=== PATIENT | male | born 1955 | race Caucasian/White ===

== ENCOUNTER 2018-07-29 16:55 | Inpatient (IN) ==
[2018-07-29] MEDS ORDERED: MBX SOLUTION MT ONE (17:41)
[2018-07-29] MEDS ORDERED: NS 500 ML IV ONE (17:42)
--- NOTE | 2018-07-29 17:43 | PROVIDER DOCUMENTATION ---
This chart was entered by Selam Reyes Scribe, acting as scribe for Brayan Thurston MD. HPI-General Adult - General Chief Complaint: General Adult Stated Complaint: MOUTH PAIN Time Seen by Provider: 07/29/18 17:15 Source: patient Allergies/Adverse Reactions: Patient Allergies Allergy/AdvReac Type Severity Reaction Status Date / Time No Known Allergies Allergy Verified 07/29/18 17:25 Home Medications: Home Medication List Medication Instructions Recorded Confirmed Last Taken Type Omeprazole [Prilosec] 40 mg PO DAILY 02/19/16 05/20/18 05/19/18 History Ondansetron HCl [Zofran] 4 mg PO PRN PRN 09/01/16 05/20/18 05/18/18 History Bortezomib [Velcade] 3.5 mg IV Q7D 01/01/17 05/20/18 05/15/18 History Valacyclovir HCl [Valtrex] 500 mg PO DAILY 01/01/17 05/20/18 05/19/18 History Dexamethasone 4 mg PO DIRECTED 05/15/18 05/20/18 05/16/18 History Lenalidomide [Revlimid] 25 cap PO DAILY 05/15/18 05/20/18 04/29/18 History Warfarin [Coumadin] 2 mg PO DAILY 05/15/18 05/20/18 04/29/18 History - History of Present Illness -Gen Adult Nature of Presenting Problems: Patient is a 63 year old male who presents to the ED via EMS with mouth pain. Patient denies injury. States history of multiple myeloma. Reports he was suppose to have all of his teeth pulled but could not make it to the dentist. Location of Pain/Injury: reports: mouth Pain Radiation: reports: no radiation Quality of Pain: reports: aching Severity: reports: mild Onset/Duration: reports: unsure Timing: reports: still present Context/Activities at Onset: reports: light activity Modifying Factors: improves with: nothing Associated Symptoms: reports: denies symptoms Similar Symptoms Previously?: Yes Recently seen or treated by another doctor?: No Review of Systems - Adult - REVIEW OF SYSTEMS - ADULT Constitutional: reports: no symptoms reported. denies: chills, fever, fatique Eyes: reports: no symptoms reported Ears, Nose, Mouth & Throat: reports: see HPI, mouth/dental pain (mouth pain). denies: ear pain, nose pain, throat pain Cardiovascular: reports: no symptoms reported Respiratory: reports: no symptoms reported Gastrointestinal: reports: no symptoms reported Genitourinary: reports: no symptoms reported Musculoskeletal: reports: no symptoms reported. denies: back pain, muscle aches, neck pain Integumentary: reports: no symptoms reported Neurological: reports: no symptoms reported Psychiatric: reports: no symptoms reported Endocrine: reports: no symptoms reported Hematologic/Lymphatic: reports: no symptoms reported Allergic/Immunologic: reports: no symptoms reported All Other Systems: Reviewed and Negative Past History - Adult - PAST MEDICAL HISTORY-ADULT Review of Records: reports: Nursing Assessment Review, Medications Reviewed, Social history reviewed & non-contributory. Major Childhood Illnesses: reports: denies history Cardiovascular: reports: denies history Respiratory: reports: denies history Gastrointestinal: reports: denies history Obstetrical/Gynecological: reports: denies history Genitourinary: reports: denies history Musculoskeletal: reports: denies history Neurological: reports: denies history Psychiatric: reports: denies history Endocrine/Immune: reports: denies history Other Conditions: reports: other (HIATAL HERNIA) - PRIOR SURGERIES/PROCEDURES Surgical/Procedure History: reports: reviewed, not pertinent - IMMUNIZATION STATUS Childhood Immunizations: See Nurse Assessment Flu Vaccine: See Nurse Assessment - FAMILY HISTORY Family History: reviewed, not pertinent - SOCIAL HISTORY Smoking: cigarettes, less than 1 pack/day Provider spent 3-5 mins advising pt. on dangers of tobacco.: Discussed manners to quit use, and f/u contacts for add'l counseling. Substance Use: denies Physical Exam-General - PHYSICAL EXAM-ADULT Initial Vital Signs Reviewed: Yes - CONSTITUTIONAL General Appearance: alert, no apparent distress. negative: obese, anxious - HEAD, EARS, NOSE, MOUTH & THROAT HENMT: dental decay, other (dry mucous membranes. brown discharge present to dentition. small mass to left jaw.). negative: hearing deficit - RESPIRATORY Respiratory: chest non-tender, lungs clear, normal breath sounds. negative: crackles, rhonchi - CARDIOVASCULAR Cardiovascular: normal peripheral pulses, regular rate, rhythm. negative: tachycardia, systolic murmur - MUSCULOSKELETAL Extremity: non-tender, normal inspection. negative: deformity, erythema - SKIN Integumentary: normal color, normal turgor, warm/dry. negative: cyanosis, ecchymosis, erythema, jaundice - NEUROLOGIC Neurologic: grossly normal. negative: aphasia, facial droop - PSYCHIATRIC Psych/Mental Status: normal mood/affect. negative: anxious, paranoid Progress - PLAN OF CARE/RESULTS Progress/Plan/Lab Results: Vital Signs - 8 hr 07/29/18 17:21 Temperature 97.7 F Pulse Rate 122 H Respiratory Rate 24 Blood Pressure 100/81 Orders Category Date Time Status Cardiac Monitoring DIRECTED Care 07/29/18 17:27 Active IV Insertion ORDERED Care 07/29/18 17:27 Active CHEST-1 VIEW [RAD] Stat Exams 07/29/18 17:27 Ordered BLOOD CULTURE [BLDCUL] Stat Lab 07/29/18 17:27 Uncollected CBC WITH DIFF [HEME] Stat Lab 07/29/18 17:27 Uncollected CK PROFILE [SP CHEM] Stat Lab 07/29/18 17:27 Uncollected COMPREHENSIVE METABOLIC PANEL [CHEM] Stat Lab 07/29/18 17:27 Uncollected LACTATE, PLASMA [CHEM] Q3H Lab 07/29/18 17:30 Uncollected LACTATE, PLASMA [CHEM] Q3H Lab 07/29/18 20:30 Uncollected LACTATE, PLASMA [CHEM] Q3H Lab 07/29/18 23:30 Uncollected PROTIME WITH INR [COAG] Stat Lab 07/29/18 17:27 Uncollected PTT [COAG] Stat Lab 07/29/18 17:27 Uncollected TROPONIN T Stat Lab 07/29/18 17:27 Uncollected URINALYSIS W/POSS RFLX CULT [URINALYSIS] Stat Lab 07/29/18 17:27 Uncollected Oxygen Device Stat Oth 07/29/18 17:27 Active - CONSULTS/PCP/HOSPITALIST Notification #1 *Consult/PCP/Hospitalist*: Dr. Bauer Time Discussed: 17:41 Reason/Comments: Dr. Thurston consulted with Dr. Bauer about patient. Consult Disposition: Will see in ED #2 Consult: Dr. Bauer Time Discussed: 17:53 Reason/Comments: Dr. Thurston consulted with Dr. Bauer about patient. Consult Disposition: Admit Departure - Departure Date of Disposition Decision: 07/29/18 Time of Disposition Decision: 17:53 Disposition: ADMITTED INPATIENT 09 Certified Medical Emergency: Emergent Condition: Stable Referrals and Follow-Ups: Zee Cramer MD [Primary Care Provider] - - Critical Care Note This patient required my direct & personal management of CC.: No Attestation - Physician/ GLENNY Attestation The physician spent face to face time with patient:: Yes Advanced Practice Provider documentation review:: Supervising physician onsite and consulted in the evaluation and care of this patient. The physician did have a face to face encounter with the patient. This chart was documented by the indicated scribe, (Selam Reyes Scribe) and accurately reflects the services I performed and decisions made by me, Brayan Thurston MD, as attested by the provider's signature.
[2018-07-29 18:06] LABS: BASO# 0.05 X1000 (0.0-0.2); BASO% 0.5 % (0.0-0.8); HEMATOCRIT 40.5 % (42.0-52.0); HEMOGLOBIN 12.7 g/dL (14.0-18.0); IMM GRAN# 0.33 X1000 (0.0-0.04); IMM GRAN% 3.1 % (0.0-0.5); LYMPH# 1.19 X1000 (1.2-3.4); LYMPH% 11.3 % (20.5-51.1); MCH 33.1 PG (27-31); MCHC 31.4 g/dL (33-37); MCV 105.5 FL (81-99); MONO# 0.97 X1000 (0.11-0.59); MONO% 9.2 % (1.7-9.3); MPV 12.1 FL (7.4-10.4); NEUT# 7.98 X1000 (1.4-6.5); NEUT% 75.9 % (42.2-75.2); PLT 241 X1000 (130-400); RBC 3.84 XMIL (4.7-6.1); RDW 13.9 % (11.5-14.5); WBC 10.52 X1000 (4.8-10.8)
[2018-07-29 18:12] LABS: INR 0.91; PTT 24.2 Seconds (22.3-41.8)
--- NOTE | 2018-07-29 18:15 | Diag Imaging Result Doc PS360 ---
EXAM: CHEST-1 VIEW HISTORY: sepsis protocol TECHNIQUE: Chest single view COMPARISON: 02/19/2016 FINDINGS: The lungs are well expanded. The heart is not enlarged. The vessels are not distended. Small infiltrate in the right costophrenic angle. No effusion identified. IMPRESSION: Small right basilar infiltrate Electronically signed by Chiki Peters 07/29/2018 6:13 PM
[2018-07-29 18:26] LABS: ESTIMATED GFR > 60
[2018-07-29] MEDS ORDERED: NS 1,000 ML IV SCH (18:30)
[2018-07-29 18:35] LABS: AGAP 25; ALB/GLOB RATIO 1.1; ALBUMIN 3.3 g/dL (3.5-5.0); ALKALINE PHOSPHATASE 99 U/L (32-122); BUN 17 mg/dL (8-22); CALCIUM 9.6 mg/dL (8.8-10.2); CHLORIDE 84 mmol/L (98-107); CK PROFILE 22 U/L (24-204); COSMO 290; CREATININE 0.7 mg/dL (0.7-1.2); GLUCOSE 103 mg/dL (70-104); GOT 12 U/L (10-34); GPT 9 U/L (10-44); SODIUM 145 mmol/L (136-145); TCO2 36 mmol/L (25-35); TOTAL BILIRUBIN 0.77 mg/dL (0.20-1.00); TOTAL PROTEIN 6.3 g/dL (6.3-8.3)
[2018-07-29] MEDS ORDERED: TYLENOL PO ONE (18:35)
[2018-07-29] MEDS ORDERED: LOVENOX SUBQ SCH (18:45)
[2018-07-29 18:50] LABS: URINE SOURCE CLEAN CATCH
[2018-07-29 18:53] LABS: BILIRUBIN URINE MODERATE (NEGATIVE); BLOOD URINE NEGATIVE (NEGATIVE); COLOR YELLOW; GLUCOSE URINE NEGATIVE (NEGATIVE); KETONE URINE 40 mg/dL (NEGATIVE); LEUKOCYTES URINE NEGATIVE (NEGATIVE); NITRITE URINE NEGATIVE (NEGATIVE); PROTEIN URINE 30 mg/dL (NEGATIVE); SP GRAVITY URINE 1.024; TURBIDITY URINE HAZY (CLEAR); UROBILINOGEN URINE 6 mg/dL (NORMAL)
[2018-07-29 18:54] LABS: UR EPITHELIAL CELLS <10 /HPF (<10); URINE BACTERIA NEGATIVE /HPF; URINE RBC <10 /HPF (<10); URINE WBC <10 /HPF (<10)
--- NOTE | 2018-07-29 18:57 | HISTORY AND PHYSICAL ---
CHIEF COMPLAINT: Mouth pain. HISTORY OF PRESENT ILLNESS: The patient is a 63-year-old, white male who lives by himself and has not been doing well recently. He has had mouth pain from multiple myeloma and from poor dentition. His mouth has been hurting. He has seen an oral surgeon in [place], has had loss of some teeth and was supposed to have other teeth removed. Not sure all of the diagnoses. It is hard for him to talk with his mouth hurting. I do not believe he can eat or drink much at this time. He looks somewhat dehydrated and disheveled. Family members were in the room with me. They tell me that he had been treated by Dr. Stone for the multiple myeloma and it is their understanding that sometimes he overuses his steroids. PAST MEDICAL HISTORY: Past history includes diagnosis of multiple myeloma. MEDICATIONS: Include 1. Prilosec 40 mg daily. 2. Zofran 4 mg p.o. p.r.n. nausea. 3. Velcade 3.5 mg IV every 7 days. 4. Valtrex 500 mg p.o. daily. 5. Dexamethasone 4 mg p.o. as directed. 6. Revlimid 25 mg capsules p.o. daily. 7. Warfarin 2 mg p.o. daily. FAMILY HISTORY: He does have brothers in good health. He is no longer . He does have children. SOCIAL HISTORY: Does still smoke tobacco. Does not use alcohol. REVIEW OF SYSTEMS: Neurological: He apparently has been a little confused. He could not tell me who the President was. Family members noticed a little confusion with him this admission. He did talk with me a little bit saying that his mouth hurts. Pulmonary: Denies cough, wheezing, dyspnea. Cardiovascular: Denies chest pain, heart palpitations, PND, orthopnea. Abdomen: Denies hematochezia, hematemesis, melena, constipation, diarrhea. Has lost weight over the last few months. It started hurting more in his mouth in the last couple of weeks. Genitourinary: Has had no difficulty with urination. Musculoskeletal: Has had some muscle wasting, just generalized weight loss. Psychiatric: He has had a little depression, has thought about giving up on his treatments so that he can . PHYSICAL EXAMINATION: VITAL SIGNS: Temperature 97.7 degrees Fahrenheit, pulse 122, respirations 24, blood pressure 100/81. HEENT: He is normocephalic. TMs within normal limits. Throat is hard to see. He has very strong breath. Could not rule out an abscess. He has some swelling of the left jaw area. He is missing some teeth. NECK: Supple. LUNGS: Clear to auscultation and percussion without rhonchi, rales, or wheezes. HEART: Regular rate and rhythm to sinus tachycardia without murmurs, gallops, friction rubs. ABDOMEN: Soft. Active bowel sounds. No organomegaly or tenderness. NEUROLOGICAL: Cranial nerves 2-12 intact grossly. Sensory and motor intact. Reflexes 1+ all. Has good dorsal pedal pulses. LABORATORY DATA: Lab work is still pending. ASSESSMENT: 1. Mouth pain with swollen left jaw area, possible parotiditis, possible abscess. 2. Altered mental status. 3. History of multiple myeloma. PLAN: Will admit. We will get blood cultures. We will start on IV antibiotics. We will get x- rays of the jaw. May consider CT scan of the jaw. We will consult Dr. Stone, his life science technical officer/oncologist. May have to get an oral surgeon to take a look at him here in town as well. He has no known drug allergies. Please see orders. cc: Minesh Bauer Jr, MD
--- NOTE | 2018-07-29 19:44 | Diag Imaging Result Doc PS360 ---
EXAM: CT HEAD W/O CONTRAST HISTORY: AMS and swollen left jaw TECHNIQUE: CT head without contrast COMPARISON: None. FINDINGS: No parenchymal hemorrhage. No epidural or subdural hematoma. No subarachnoid hemorrhage. No mass identified on this noncontrasted exam. No hydrocephalus. No left maxillary sinus opacification. IMPRESSION: No hemorrhage. Maxillary sinusitis This exam was performed using automated exposure control, adjustment of mA or kV according to patient size, and/or use of iterative reconstruction technique. Electronically signed by Chiki Peters 07/29/2018 7:42 PM
[2018-07-29] MEDS: NS 1,000 ML IV SCH (22:59)
[2018-07-29] MEDS: ROCEPHIN 1 GM in NS 50 ML IV SCH (22:59)
[2018-07-30 04:22] LABS: URINE SOURCE CATH
[2018-07-30 04:32] LABS: BILIRUBIN URINE MODERATE (NEGATIVE); BLOOD URINE NEGATIVE (NEGATIVE); COLOR YELLOW; GLUCOSE URINE NEGATIVE (NEGATIVE); KETONE URINE 20 mg/dL (NEGATIVE); LEUKOCYTES URINE NEGATIVE (NEGATIVE); NITRITE URINE NEGATIVE (NEGATIVE); PROTEIN URINE 30 mg/dL (NEGATIVE); SP GRAVITY URINE 1.024; TURBIDITY URINE CLEAR (CLEAR); UROBILINOGEN URINE 4 mg/dL (NORMAL)
[2018-07-30 04:35] LABS: UR EPITHELIAL CELLS <10 /HPF (<10); URINE BACTERIA NEGATIVE /HPF; URINE RBC <10 /HPF (<10); URINE WBC <10 /HPF (<10)
[2018-07-30 04:36] LABS: URINE CASTS NONE SEEN; URINE CRYSTALS CA OXALATE PRESENT; URINE SMALL ROUND CELLS NONE SEEN; URINE YEAST NONE SEEN
[2018-07-30] MEDS ORDERED: PRILOSEC PO SCH (07:00)
[2018-07-30 08:05] LABS: BASO# 0.02 X1000 (0.0-0.2); BASO% 0.3 % (0.0-0.8); EOS# 0.02 X1000 (0.0-0.7); EOS% 0.3 % (0.0-10.0); HEMATOCRIT 32.8 % (42.0-52.0); HEMOGLOBIN 10.2 g/dL (14.0-18.0); IMM GRAN# 0.25 X1000 (0.0-0.04); IMM GRAN% 3.5 % (0.0-0.5); LYMPH% 12.6 % (20.5-51.1); MCH 32.8 PG (27-31); MCHC 31.1 g/dL (33-37); MCV 105.5 FL (81-99); MONO# 0.72 X1000 (0.11-0.59); MONO% 10.1 % (1.7-9.3); MPV 12.3 FL (7.4-10.4); NEUT# 5.25 X1000 (1.4-6.5); NEUT% 73.2 % (42.2-75.2); PLT 189 X1000 (130-400); RBC 3.11 XMIL (4.7-6.1); RDW 13.8 % (11.5-14.5); WBC 7.16 X1000 (4.8-10.8)
[2018-07-30 08:12] LABS: AGAP 13; BUN 15 mg/dL (8-22); CALCIUM 8.4 mg/dL (8.8-10.2); CHLORIDE 91 mmol/L (98-107); COSMO 281; CREATININE 0.6 mg/dL (0.7-1.2); ESTIMATED GFR > 60; GLUCOSE 107 mg/dL (70-104); SODIUM 140 mmol/L (136-145); TCO2 36 mmol/L (25-35)
[2018-07-30 08:32] LABS: POTASSIUM 2.4 mmol/L (3.5-5.1)
[2018-07-30] MEDS: ROCEPHIN 1 GM in NS 50 ML IV SCH ×2 (09:45→20:36)
[2018-07-30] MEDS: POTASSIUM CHLORIDE 60 MEQ in NS 500 ML IV SCH ×2 (09:56→16:35)
[2018-07-30] MEDS: NS 1,000 ML IV SCH ×4 (10:28→23:17)
--- NOTE | 2018-07-30 12:27 | HEMO/ONC CONSULTATION ---
DATE: 07/30/2018 HISTORY OF PRESENT ILLNESS: The patient came to the emergency department complaining of increased amounts of mouth pain. The patient has been having mouth pain for quite a few months at this time. Patient has needed to have his teeth pulled for a while. The patient says he is unable to eat or drink due to having too much mouth pain at this time. Upon admission, the patient was noted to be dehydrated. He was admitted at that time for further evaluation and management. Mr. Agrawal is well known to us in our clinic where he follows up for his nonsecretory multiple myeloma. He began Velcade, Revlimid, and Decadron on 05/13/2016. Initial bone marrow biopsy 90% plasma cells. 2nd Bone marrow biopsy revealed 30% plasma cells. Later Bone marrow biopsy showed less than 5% plasma cells without features of myeloma. Revlimid and Decadron were stopped on 01/07/2017. He continued on single agent Velcade and declined stem cell transplantation. He relapsed on the single agent Velcade. Bone marrow biopsy 06/2017 reveal 35% plasma cells. He was restarted on full- dose Velcade, Revlimid, and Decadron on 07/25/2017. Bone marrow biopsy in April 2018 revealed 20% plasma cells. He has been complaining of this increased amount of jaw pain for many months at this time now. The patient has been very noncompliant with following a dentist or oral surgeons. Patient did see Dr. Benítez and unable to have anything done here locally and was referred to [facility] and patient was noncompliant with keeping his appointments. PAST MEDICAL HISTORY: Multiple myeloma, poor dentition. SOCIAL HISTORY: He smokes tobacco daily. Denies any alcohol or illicit drug use. FAMILY HISTORY: Noncontributory. HOME MEDICATIONS: Prilosec, Zofran, Velcade, Valtrex, dexamethasone, Revlimid, and warfarin. ALLERGIES: No known drug allergies. REVIEW OF SYSTEMS: Negative unless mentioned in the HPI. PHYSICAL EXAMINATION: Vital Signs: Temperature of 97.7 degrees, heart rate 105, respiratory rate 18, blood pressure 93/66, saturating 100% on nasal cannula. General: The patient is awake, lying in bed. No acute distress noted. HEENT: Anicteric. Pupils PERRLA. Mucous membranes appear to be dry. Neck: Supple. Trachea midline. Lymph Nodes: No palpable lymphadenopathy. Lungs: Bilateral breath sounds clear to auscultation. Cardiovascular: S1, S2. Regular rate and rhythm. Abdomen: Soft, nontender. Bowel sounds present in all 4 quadrants. Skin: Warm, dry, and intact. Neurologic: Alert and oriented x3. No focal deficits noted. LABORATORY DATA: White blood cell count 7.16, hemoglobin 10.2, platelets are 189,000. BUN 15, creatinine 0.6, calcium 8.4. ASSESSMENT AND PLAN: 1. Multiple myeloma: Revlemid, decadron, and velcade on hold until the patient improves. Once patient improves we will consider restarting treatment at that time. 2. Mouth pain: Continue recommendations per primary medical team. 3. Altered mental status: Continue recommendations per primary medical team. Dictated by ZACK Dalton for Zak Stone MD Patient seen and examined. Nonsecretory multiple myeloma as described above. Admitted with altered mental status and dehydration. Slowly starting to feel better. He is unable to open his mouth and has had difficulty with his teeth and follows up in [place], although has been noncompliant with his follow- ups. Discussed with Dr. Shoaib Stone M.D. cc: ZACK Dalton [facility] CENTERKevyn
--- NOTE | 2018-07-30 21:45 | PROGRESS NOTE ---
DATE: 07/30/2018 SUBJECTIVE: A 63-year-old, white male, noncompliant. Was seen this morning along with his brother. Interval history was reviewed. The patient was not seen in my office since 2016. Apparently, he has been diagnosed with nonsecretory myeloma under the care of Dr. Stone. I discussed with Dr. Stone on the telephone. His myeloma is in remission. However, he is noncompliant. He has a chronic deep problems and apparently was seen by Dr. Benítez and subsequently seen at [facility]. He has a lot of gingivitis inflammation. Poor dental health. He can swallow. He is slightly tender, inflamed on the left side of the jaw. PAST MEDICAL HISTORY: Reviewed. PAST SURGICAL HISTORY: Reviewed. MEDICINES: Were reviewed. ALLERGIES: Not known. REVIEW OF SYSTEMS: Unable to eat with a lot of pain in the teeth. PHYSICAL EXAMINATION: Vital Signs: Temperature is 98.4, pulse 97, blood pressure is 115/73 and he is very unkempt. Poor dental hygiene. A lot of tenderness on the left side of the jaw. Neck: Supple. Chest: Bilateral air entry. Heart: Sounds are regular. Abdomen: Belly is soft, scaphoid. Genitourinary: Robert was placed. Extremities: No peripheral edema noted. No obvious deficits. INVESTIGATIONS: CBC: White cell count 7.1, hematocrit 32, MCV 105, platelets 185. SMA-7: Sodium 140, potassium 2.4, chloride 81, BUN 15, creatinine 0.6, and calcium 8.4. Liver function tests were normal and urinalysis negative. Blood cultures are pending. CT head reported left maxillary sinusitis. Chest x-ray: Small right basilar infiltrate. ASSESSMENT AND PLAN: 1. Nonsecretory multiple myeloma under the care of Dr. Stone. 2. Gingivitis on the left side of the jaw. We will get a CT scan of the jaw bone tomorrow and in the meantime the patient was started on IV ceftriaxone. 3. Gastrointestinal prophylaxis with Protonix and Prilosec. 4. Dehydration. IV fluids. 5. Hypokalemia. Replace the potassium. 6. Consult with Dr. Stone and will reconcile his home medications once he is medically stable. Discussed the plan of care with the patient's brother and will follow up. LEVEL OF DOCUMENTATION: 35 minutes. cc: Lucio Cramer MD
[2018-07-30] MEDS: PROTONIX IV SCH (23:17)
[2018-07-31 07:48] LABS: BASO# 0.03 X1000 (0.0-0.2); BASO% 0.5 % (0.0-0.8); HEMATOCRIT 28.7 % (42.0-52.0); HEMOGLOBIN 8.7 g/dL (14.0-18.0); IMM GRAN# 0.27 X1000 (0.0-0.04); IMM GRAN% 4.4 % (0.0-0.5); LYMPH# 0.55 X1000 (1.2-3.4); LYMPH% 9.1 % (20.5-51.1); MCH 32.7 PG (27-31); MCHC 30.3 g/dL (33-37); MCV 107.9 FL (81-99); MONO# 0.55 X1000 (0.11-0.59); MONO% 9.1 % (1.7-9.3); MPV 11.4 FL (7.4-10.4); NEUT# 4.67 X1000 (1.4-6.5); NEUT% 76.9 % (42.2-75.2); PLT 150 X1000 (130-400); RBC 2.66 XMIL (4.7-6.1); RDW 13.9 % (11.5-14.5); WBC 6.07 X1000 (4.8-10.8)
[2018-07-31 07:57] LABS: AGAP 10; BUN 6 mg/dL (8-22); CALCIUM 7.8 mg/dL (8.8-10.2); CHLORIDE 104 mmol/L (98-107); COSMO 286; CREATININE 0.4 mg/dL (0.7-1.2); ESTIMATED GFR > 60; GLUCOSE 130 mg/dL (70-104); MAGNESIUM 1.4 mg/dL (1.5-2.7); PHOSPHORUS 1.3 mg/dL (2.7-4.5); SODIUM 144 mmol/L (136-145); TCO2 30 mmol/L (25-35)
[2018-07-31] MEDS ORDERED: MAGNESIUM SULFATE 2 GM/S.W.I. 2 GM/50 ML IVPB IV ONE (08:04)
--- NOTE | 2018-07-31 08:04 | HEMO/ONC PROGRESS NOTE ---
DATE: 07/31/2018 SUBJECTIVE: Patient continues to have increased amounts of pain to his mouth. No other complaints at this time. OBJECTIVE: Vital Signs: Temperature 98.5 degrees, heart rate 93, respiratory rate 17, blood pressure 106/67, saturation 90% on room air. General: Patient is awake, lying in bed, no acute distress noted. HEENT: Anicteric. PERRLA. Mucous membranes dry. Tenderness to the left side of jaw. Chest: Bilateral breath sounds clear to auscultation. Cardiovascular: S1, S2. Abdomen: Abdomen soft, nontender. Bowel sounds present all 4 quadrants. Neurologic: Alert and oriented x3. No focal deficits noted. RADIOLOGY: CT of Maxillofacial showed comminuted fracture involving the mandible of the left side with abnormal eroded appearance. Suspicious for pathological fracture related to multiple myeloma. ASSESSMENT AND PLAN: 1. Nonsecretory multiple myeloma: Once he is improved, we will restart treatment at that time. Continue to monitor. 2. Increased amount of pain to left-sided jaw: Continue as per primary medical team. Continue antibiotics as ordered. 3. Dehydration: Continue IV fluids as ordered by primary medical team. Dictated by ZACK Dalton for Zak Stone MD Patient seen and examined. He feels much better with fluids and electrolyte management at this time. CT scan results were discussed. Oral surgery to look at him. Discussed with Dr. Cramer. Zak Stone M.D. [facility]
[2018-07-31 08:16] LABS: BANDS 26 % (0-1); HYPOCHROM 1+; LYMPHS 2 % (21-51); MONO 4 % (1-9); SEGS 64 % (42-75)
[2018-07-31 08:26] LABS: SED RATE 90 mm/hr (0-15)
[2018-07-31] MEDS: CLINIMIX E 4.25%-5% SOLUTION 1,000 ML IV SCH ×2 (08:58→17:25)
[2018-07-31] MEDS ORDERED: POTASSIUM PHOSPHATE 30 MEQ in NS 250 ML IV ONE (09:00)
[2018-07-31 09:05] LABS: FREE T4 1.13 ng/dL (0.93-1.70); TSH 0.72 uIUmL (0.27-4.20); VITAMIN D 25 HYDROXY 20.4 NG/DL
[2018-07-31] MEDS: ZOSYN 3.375 GM in NS 50 ML IV SCH ×3 (10:03→22:55)
--- NOTE | 2018-07-31 10:13 | Diag Imaging Result Doc PS360 ---
EXAM: CT MAXILLOFACIAL(SINUS) W/CON INDICATION: Extreme jaw pain TECHNIQUE: COMPARISON: None. FINDINGS: There are complex fractures involving the mandible on the left extending from near the mandibular angle through the mandibular ramus. There is irregularity and callous formation suggesting that at least part of this fracture is subacute. There are erosive changes involving this segment of the bone and there is a history of multiple myeloma. This may represent a pathologic fracture. There is fluid and a few tiny gas droplets adjacent to the fractured mandibular ramus. There are two other ill-defined fluid collections more inferiorly. One is adjacent to the mandibular angle extending into the submandibular region. The other is superficial just under the skin surface and more inferior measuring 1.8 x 1.1 cm axially. These fluid collections may communicate. Although evolving hematomas are possible, soft tissue abscesses cannot be excluded especially given the gas droplets adjacent to the mandibular ramus. If so, mandibular osteomyelitis along the fractures should be considered. No other fracture or dislocation is identified. There are numerous tiny lucencies involving the visualized portion of the cervical spine that are probably myelomatous lesions. IMPRESSION: 1.Complex comminuted fracture involving the left side of the mandible as described with the fractured portion of the bone exhibiting an abnormal eroded appearance. This is suspicious for pathologic fracture related to multiple myeloma lesions and/or mandibular osteomyelitis. 2.Small ill-defined fluid collections adjacent to the fractured mandible, one with a few internal gas droplets. Soft tissue abscesses cannot be excluded. Please correlate clinically. 3.Numerous small hyper lucencies involving the visualized portion of the cervical spine consistent with known multiple myeloma. Electronically signed by Sen Castanon 07/31/2018 10:11 AM
[2018-07-31] MEDS ORDERED: SODIUM CHLORIDE 0.9% INJ SCH (11:30)
[2018-07-31] MEDS ORDERED: PROTONIX IV SCH (11:30)
[2018-07-31] MEDS: POTASSIUM CHLORIDE 60 MEQ in NS 500 ML IV SCH ×2 (13:38→23:30)
--- NOTE | 2018-07-31 21:03 | PROGRESS NOTE ---
DATE: 07/31/2018 SUBJECTIVE: The patient is still with a lot of pain in the jaw and bad teeth. Discussed with Dr. Stone. No family is at bedside. OBJECTIVE: On exam, temperature is 98 degrees. His pulse is tachycardic. Blood pressure is 110/66. HEENT exam: He has bad teeth. A lot of pain on the left side of the jaw. Chest is clear. Heart sounds are regular. Belly is soft, nontender. Robert was placed. LABORATORY DATA: CBC: White cell count 6.0, hematocrit 28, platelets 150,000. Sedimentation rate was 90. SMA 7: Sodium 144, potassium 3. His calcium is low. Magnesium is low. Phosphate is low. Vitamin D is also on the low side. B12 and thyroid function tests were normal. ASSESSMENT AND PLAN: 1. Nonsecretory myeloma. Chemotherapy is on hold. 2. Left jaw pain. CT of the jaw reported complex mandibular fracture with infection, possible osteomyelitis. Consult Dr. Benítez. 3. Hypokalemia. Replace the potassium. 4. Hypomagnesemia. Replace the magnesium. 5. Hypophosphatemia. Replace the phosphate. 6. Change the intravenous fluids to Clinimix. Since Rocephin is not compatible with the Clinimix, changing to Zosyn. 7. I tried to reach Dr. Benítez, left a message, and will follow up. Level of documentation 25 minutes. cc: Lucio Cramer MD
[2018-07-31] MEDS: PROTONIX IV SCH (22:55)
[2018-08-01] MEDS: TYLENOL PO PRN (00:14)
[2018-08-01] MEDS: CLINIMIX E 4.25%-5% SOLUTION 1,000 ML IV SCH ×3 (04:16→21:00)
[2018-08-01] MEDS: ZOSYN 3.375 GM in NS 50 ML IV SCH ×4 (04:16→21:04)
[2018-08-01 07:47] LABS: BASO# 0.05 X1000 (0.0-0.2); BASO% 0.8 % (0.0-0.8); EOS# 0.01 X1000 (0.0-0.7); EOS% 0.2 % (0.0-10.0); HEMATOCRIT 29.4 % (42.0-52.0); HEMOGLOBIN 8.9 g/dL (14.0-18.0); IMM GRAN# 0.44 X1000 (0.0-0.04); IMM GRAN% 7.3 % (0.0-0.5); LYMPH# 0.64 X1000 (1.2-3.4); LYMPH% 10.6 % (20.5-51.1); MCH 32.6 PG (27-31); MCHC 30.3 g/dL (33-37); MCV 107.7 FL (81-99); MONO# 0.76 X1000 (0.11-0.59); MONO% 12.6 % (1.7-9.3); MPV 11.7 FL (7.4-10.4); NEUT# 4.12 X1000 (1.4-6.5); NEUT% 68.5 % (42.2-75.2); PLT 135 X1000 (130-400); RBC 2.73 XMIL (4.7-6.1); RDW 13.8 % (11.5-14.5); WBC 6.02 X1000 (4.8-10.8)
[2018-08-01] MEDS ORDERED: POTASSIUM PHOSPHATE 30 MEQ in NS 250 ML IV ONE (07:50)
[2018-08-01] MEDS ORDERED: MAGNESIUM SULFATE 2 GM/S.W.I. 2 GM/50 ML IVPB IV ONE (07:50)
[2018-08-01] MEDS ORDERED: CALCIUM GLUCONATE 1 GM in NS 50 ML IV ONE (07:50)
[2018-08-01 08:06] LABS: AGAP 7; BUN 12 mg/dL (8-22); CALCIUM 7.9 mg/dL (8.8-10.2); CHLORIDE 105 mmol/L (98-107); COSMO 287; CREATININE 0.5 mg/dL (0.7-1.2); ESTIMATED GFR > 60; GLUCOSE 179 mg/dL (70-104); POTASSIUM 4.1 mmol/L (3.5-5.1); SODIUM 142 mmol/L (136-145); TCO2 30 mmol/L (25-35)
[2018-08-01 08:48] LABS: ANISOCYTOSIS 1+; BANDS 2 % (0-1); EOS 1 % (1-10); LYMPHS 10 % (21-51); MONO 13 % (1-9); SEGS 68 % (42-75)
[2018-08-01] MEDS: PERIDEX MT SCH ×2 (09:42→21:04)
--- NOTE | 2018-08-01 11:39 | HEMO/ONC PROGRESS NOTE ---
DATE: 08/01/2018 SUBJECTIVE: The patient's pain is improving. The patient says he is feeling better at this time. OBJECTIVE: Vital Signs: Temperature 97.6 degrees, heart rate 88, respiratory rate 18, blood pressure 115/79, saturation 100% on nasal cannula. General: Patient is awake, lying in bed, in no acute distress noted. HEENT: Anicteric. Pupils: PERRLA. Mucous membranes are a bit dry. Tenderness to left side of jaw. Chest: Bilateral breath sounds clear to auscultation. Cardiovascular: S1, S2, regular rate and rhythm. Abdomen: Soft, nontender. Bowel sounds present in all 4 quadrants. Neurological: Alert and oriented x3 with no focal deficits noted. LABORATORY DATA: White blood cell count 6.02, hemoglobin 8.2, hematocrit 29.4, platelets are 135. ASSESSMENT AND PLAN: 1. Nonsecretory multiple myeloma: Once patient improves, hopefully we can resume treatment at that time. Just continue to monitor for now. 2. Fracture of left mandible: Oral Surgery has been consulted. Continue management per primary medical team and surgeon. 3. Supportive care: Continue to have patient get out of bed as much as possible. The patient will be continued to exercise while in the hospital. Dictated by ZACK Dalton for Zak Stone MD Patient seen and examined. Dr. Cramer has consulted oral surgery. Patient is on antibiotics. There is an abscess in the submandibular area. Patients CT scan reveals fracture of the mandible. He also could be having osteonecrosis of the jaw. Zak Stone M.D. [facility]
[2018-08-01] MEDS: PROTONIX IV SCH (21:04)
[2018-08-01] MEDS: SODIUM CHLORIDE 0.9% INJ SCH (21:04)
--- NOTE | 2018-08-01 21:57 | PROGRESS NOTE ---
DATE: 08/01/2018 SUBJECTIVE: The patient has still a lot of pain on the left side of the jaw. Now running fever, 99.8 degrees. Vital signs are stable. He is not able to eat well. Interval history was reviewed. PHYSICAL EXAMINATION: Temperature is 99.8 degrees. Tachycardic. Vital signs are stable. HEENT exam: Extensive pyorrhea with halitosis noted. Poor dental hygiene. He did not have last molar teeth. He is tender on the left side of the jaw. Neck is supple. Chest is clear. Heart sounds are regular. Belly is soft, scaphoid. Robert was placed. LABORATORY DATA: CBC: White cell count 6, hematocrit 29, platelets 135,000. SMA 7: Sodium 142, potassium 4.1, chloride 105, BUN 12, creatinine 0.5, glucose 179, calcium 7.9. ASSESSMENT AND PLAN: 1. Left-sided jaw pain due to osteonecrosis with a fracture. I did review the x-rays with Dr. Peters. Possible infection, possible pathological fracture, with underlying nonsecretory myeloma. 2. Dehydration. 3. Electrolyte abnormalities. Plan is (1) Clinimix; (2) replace the calcium, magnesium and phosphate. Hypokalemia is improved. 4. Discussed with the patient (1) advance to soft diet; (2) intravenous Clinimix; (3) Peridex to rinse the mouth. 5. Liquid Tylenol for fever. 6. I spoke to Dr. Benítez for consultation. Apparently he saw the patient in March and he was noncompliant. He has been referred to Dk Hutton, oral surgeon in [facility]. I called his answering service and left a message, never returned the phone call. In the meantime, continue the Clinimix and Zosyn. Soft diet. We will discuss with the family about the plan of care. He needs to go to [facility] for reconstructive surgery once his pain is adequately controlled as well as his dehydration. Level of documentation is 35 minutes. cc: Lucio Cramer MD
[2018-08-02] MEDS: CLINIMIX E 4.25%-5% SOLUTION 1,000 ML IV SCH ×4 (01:18→19:14)
[2018-08-02] MEDS: ZOSYN 3.375 GM in NS 50 ML IV SCH ×4 (04:49→22:22)
[2018-08-02] MEDS: PERIDEX MT SCH ×2 (09:36→21:00)
--- NOTE | 2018-08-02 11:05 | HEMO/ONC PROGRESS NOTE ---
DATE: 08/02/2018 SUBJECTIVE: Patient continues to have increased amounts of pain to the left side of his jaw. No new complaints at this time. OBJECTIVE: Vital Signs: Temperature 99.6 degrees, heart rate 112, respiratory rate 18, blood pressure 100/60, saturation 93% on room air. General: Patient is awake, lying in bed, no acute distress noted. HEENT: Anicteric. Mucous membranes moist. Cardiovascular: S1, S2. Regular rate and rhythm. Chest: Bilateral breath sounds clear to auscultation. Abdomen: Soft, nontender. Bowel sounds present all 4 quadrants. Neurologic: Alert and oriented x3. No focal deficits noted. ASSESSMENT AND PLAN: 1. Nonsecretory multiple myeloma: Once patient improves we will resume treatment at that time. For now, just continue to monitor. 2. Fracture of left mandible: Once the patient's pain is under control, patient will need to follow up with oral surgeon at [facility]. Continue management by primary team at this time. 3. Supportive care: Continue patient to get out of bed as much as possible and continue to have patient to exercise while in the hospital to stay strong. Dictated by ZACK Dalton for Zak Stone MD Patient seen and examined. Patient is on antibiotics. There is an abscess in the submandibular area. Patients CT scan reveals fracture of the mandible. In addition he could be having osteonecrosis of the jaw. Oral surgery inpatient consultation pending. Zak Stone M.D. MTDD
--- NOTE | 2018-08-02 18:39 | PROGRESS NOTE ---
DATE: 08/02/2018 SUBJECTIVE: The patient is still in a lot of pain on the left jaw. Attempted to eat soft diet. I spoke to Akua Riojas about the care plan. He is not understanding. Other than pain, not eating. OBJECTIVE: On exam he has a fever, 100.2 degrees. Pulse is 111, blood pressure is 90/60. HEENT exam: He has poor dental hygiene. He has tenderness in the left jaw and he has soft tissue swelling just below the angle of the mandible on the left side. Neck is supple. Chest is clear. Heart sounds are regular. Belly is soft, nontender. Robert was placed. INVESTIGATIONS: None reported. ASSESSMENT AND PLAN: 1. Nonsecretory multiple myeloma, in remission. Chemotherapy on hold. 2. Impending dehydration due to severe jaw pain. Continue intravenous Clinimix. 3. Osteonecrosis of left jaw, with underlying multiple myeloma. Continue intravenous Zosyn, Peridex and Tylenol. 4. I spoke to Dr. Dk Hutton, oral surgeon at [facility]. Apparently he is a resident. Called me twice this afternoon. They want to see him in his office at [facility] once he is medically stable. 5. Repeat the labs over the weekend. Continue present treatment. Level of documentation is 25 minutes. cc: Lucio Cramer MD
[2018-08-02] MEDS: PROTONIX IV SCH (21:00)
[2018-08-03] MEDS: ZOSYN 3.375 GM in NS 50 ML IV SCH ×4 (04:02→21:04)
[2018-08-03] MEDS: CLINIMIX E 4.25%-5% SOLUTION 1,000 ML IV SCH ×3 (05:00→15:41)
[2018-08-03 07:19] LABS: BASO# 0.03 X1000 (0.0-0.2); BASO% 0.5 % (0.0-0.8); EOS# 0.01 X1000 (0.0-0.7); EOS% 0.2 % (0.0-10.0); HEMATOCRIT 26.9 % (42.0-52.0); HEMOGLOBIN 8.3 g/dL (14.0-18.0); IMM GRAN# 0.43 X1000 (0.0-0.04); LYMPH# 1.03 X1000 (1.2-3.4); LYMPH% 16.9 % (20.5-51.1); MCH 32.4 PG (27-31); MCHC 30.9 g/dL (33-37); MCV 105.1 FL (81-99); MONO# 0.71 X1000 (0.11-0.59); MONO% 11.6 % (1.7-9.3); MPV 11.5 FL (7.4-10.4); NEUT# 3.89 X1000 (1.4-6.5); NEUT% 63.8 % (42.2-75.2); PLT 134 X1000 (130-400); RBC 2.56 XMIL (4.7-6.1); RDW 14.4 % (11.5-14.5)
[2018-08-03 07:49] LABS: AGAP 9; BUN 14 mg/dL (8-22); CALCIUM 8.3 mg/dL (8.8-10.2); CHLORIDE 105 mmol/L (98-107); COSMO 276; CREATININE 0.5 mg/dL (0.7-1.2); ESTIMATED GFR > 60; GLUCOSE 137 mg/dL (70-104); PHOSPHORUS 2.4 mg/dL (2.7-4.5); POTASSIUM 4.1 mmol/L (3.5-5.1); SODIUM 137 mmol/L (136-145); TCO2 23 mmol/L (25-35)
[2018-08-03 08:26] LABS: SED RATE 114 mm/hr (0-15)
[2018-08-03 08:32] LABS: BANDS 2 % (0-1); LYMPHS 16 % (21-51); MONO 10 % (1-9); SEGS 58 % (42-75)
[2018-08-03] MEDS: PERIDEX MT SCH ×2 (10:47→21:03)
--- NOTE | 2018-08-03 12:36 | PROGRESS NOTE ---
DATE: 08/03/2018 SUBJECTIVE: A 63-year-old white gentleman, admitted with left-sided mouth and jaw pain. The patient had poor oral intake. History of multiple myeloma. Patient had the area of swollen left jaw. CT scan of the maxillofacial bones did reveal complex comminuted fracture involving the left side of the mandible. The patient had history of multiple myeloma being followed up by Hematology/Oncology. There was also question about osteomyelitis. The patient had poor oral intake due to her oral pain, unquantified weight loss. The patient is doing fair. No high-grade fever or chills. Mild cough. No expectoration. History part is limited. No dysuria or hematuria. At times, constipation. PAST MEDICAL HISTORY: Significant for multiple myeloma, oral pain, gastritis and reflux disease. Admission history, physical and Oncology consult noted. OBJECTIVE: Vital Signs: Blood pressure 108/62, pulse is 98, respirations 15, temperature 98.7 degrees. Skin: Poor turgor. The patient has swelling on the left jaw. Neck: Supple. No JVD. Lungs: Bibasilar crepitations. Heart: S1 and S2 heard. Abdomen: Soft, globular. Bowel sounds present. EQUIPMENT MAINTENANCE SUPERINTENDENT: Alert, awake. Able to move all 4 limbs. ASSESSMENT: The patient medical problems include multiple myeloma being followed up by oncologist, malnutrition, osteonecrosis of the left jaw, gastritis, reflux disease and anemia of chronic disease. LABS DONE TODAY: Hemoglobin 8.3, hematocrit 26.9, WBC count 6.1, platelet count was 134, sedimentation rate was 114. Electrolytes were fairly benign. PLAN: The patient is on Clinimix, IV antibiotics. We will continue current treatment. Close observation. Oncologist following patient with us. cc: MD Lucio Peña MD
[2018-08-03] MEDS: XYLOCAINE 2% VISCOUS MT PRN ×2 (15:02→21:03)
[2018-08-03] MEDS: TYLENOL PO PRN (21:02)
[2018-08-03] MEDS: PROTONIX IV SCH (21:03)
[2018-08-03] MEDS: SODIUM CHLORIDE 0.9% INJ SCH (21:04)
[2018-08-04] MEDS: CLINIMIX E 4.25%-5% SOLUTION 1,000 ML IV SCH ×3 (02:01→22:41)
[2018-08-04] MEDS: XYLOCAINE 2% VISCOUS MT PRN ×3 (05:31→16:39)
[2018-08-04] MEDS: ZOSYN 3.375 GM in NS 50 ML IV SCH ×4 (05:31→21:09)
--- NOTE | 2018-08-04 08:21 | PROGRESS NOTE ---
DATE: 08/04/2018 SUBJECTIVE: Mr. Agrawal is doing fair. Some jaw pain. No fever or chills. The patient is getting IV Clinimix, tolerating it well. No nausea or vomiting. No cough or expectoration. OBJECTIVE: Vital Signs: Noted. Neck: Supple. No JVD. Lungs: Bibasilar crepitations. Heart: S1 and S2 heard. Abdomen: Soft, nontender. Bowel sounds present. STITCH BONDING MACHINE TENDER HELPER: Alert, awake. Able to move all 4 limbs. Laboratory Data: Done yesterday, noted. Sedimentation rate was 114. Electrolytes were benign. Hemoglobin 8.3, hematocrit 26.9. ASSESSMENT: Patient's problems include: 1. Nonsecretory multiple myeloma. 2. Fracture of the left mandible. 3. Anemia of chronic disease. PLAN: The patient is being followed up by oncologist. We will continue supportive care. Close observation. Overall plan discussed with the patient. I will encourage the patient to be out of bed to chair with assistance. Physical therapy evaluation. cc: MD Lucio Peña MD
[2018-08-04] MEDS: PERIDEX MT SCH ×2 (10:48→21:10)
[2018-08-04] MEDS: PROTONIX IV SCH (21:09)
[2018-08-04] MEDS: SODIUM CHLORIDE 0.9% INJ SCH (21:09)
[2018-08-05] MEDS: ZOSYN 3.375 GM in NS 50 ML IV SCH ×4 (03:45→23:24)
[2018-08-05] MEDS: PERIDEX MT SCH ×2 (08:06→23:23)
[2018-08-05] MEDS: CLINIMIX E 4.25%-5% SOLUTION 1,000 ML IV SCH (08:06)
--- NOTE | 2018-08-05 14:49 | HEMO/ONC PROGRESS NOTE ---
DATE: 08/05/2018 SUBJECTIVE: Patient's pain is improving. No new complaints at this time. OBJECTIVE: Vital Signs: Temperature 97.5 degrees, heart rate 91, respiratory rate 18, blood pressure is 100/65, saturating 96% on room air. General: Patient is awake, lying in bed, no acute distress noted. HEENT: Anicteric. Pupils PERRLA. Mucous membranes appear to be dry. Cardiovascular: S1, S2. Regular rate and rhythm. Chest: Bilateral breath sounds. Clear to auscultation. Abdomen: Soft, nontender. Bowel sounds in all 4 quadrants. Neurologic: Alert and oriented x3. No focal deficits noted. ASSESSMENT AND PLAN: 1. Nonsecretory multiple myeloma: Once the patient has improved and strength gets better, patient will follow up for further treatment at that time. We will just continue to monitor for now. 2. Fracture of left mandible: The patient will be following up with an oral surgeon at [facility]. Continue management by primary medical team at this time. 3. Supportive care: Have patient get out of bed as much as possible. Continue with physical therapy. Plan of care discussed with Dr. Stone. Dictated by ZACK Dalton for Zak Stone MD Patient seen and examined. As above. Fracture of the left mandible and possible last necrosis of the jaw. Further management for oral surgery. Continue multiple myeloma therapy as outpatient. No further thoughts. Zak Stone M.D. MTDD
[2018-08-05] MEDS ORDERED: POTASSIUM PHOSPHATE 30 MEQ in NS 250 ML IV ONE (20:30)
[2018-08-05] MEDS ORDERED: MAGNESIUM SULFATE 2 GM/S.W.I. 2 GM/50 ML IVPB IV ONE (20:30)
--- NOTE | 2018-08-05 21:04 | PROGRESS NOTE ---
DATE: 08/05/2018 SUBJECTIVE: Events noted over the weekend are his pain is a little improved on the left jaw, and he has tried to eat soft diet. His dental hygiene is bad. OBJECTIVE: Vital signs: Temperature is 98 degrees, pulse is 95, blood pressure is stable. General: Unkempt, dishevelled and poor dental hygiene. Pain is better. Chest: Clear. Cardiovascular: Heart sounds are regular. Abdomen: Belly is soft, nontender. Neurologic: No neurological deficits. INVESTIGATIONS: On 08/03/2018, CBC: White cell count 6.1, hematocrit 26, platelets 134,000. Sedimentation rate is 114. SMA 7 is normal. Phosphorus 2.4. ASSESSMENT AND PLAN: 1. Left jaw pain due to osteonecrosis. I spoke to the patient as well as the caregiver that he needs to make an appointment next Sunday at [facility] with Dr. Dk Hutton. 2. Continue soft diet. 3. IV Clinimix. 4. Continue on IV Zosyn. 5. Discontinue Robert, out of the bed and repeat the labs in the morning. LEVEL OF DOCUMENTATION: 35 minutes. cc: Lucio Cramer MD
[2018-08-05] MEDS: PROTONIX IV SCH (23:24)
[2018-08-06] MEDS: ZOSYN 3.375 GM in NS 50 ML IV SCH ×4 (04:55→22:00)
[2018-08-06 07:19] LABS: HEMATOCRIT 25.8 % (42.0-52.0); HEMOGLOBIN 8.1 g/dL (14.0-18.0); MCH 32.7 PG (27-31); MCHC 31.4 g/dL (33-37); MPV 12.2 FL (7.4-10.4); PLT 149 X1000 (130-400); RBC 2.48 XMIL (4.7-6.1); RDW 14.3 % (11.5-14.5); WBC 4.65 X1000 (4.8-10.8)
[2018-08-06 07:39] LABS: BANDS 6 % (0-1); EOS 2 % (1-10); LYMPHS 20 % (21-51); MONO 2 % (1-9); SEGS 68 % (42-75)
[2018-08-06 07:40] LABS: HYPOCHROM 1+; POIKILOCYTOSIS 1+
[2018-08-06 07:47] LABS: AGAP 11; BUN 11 mg/dL (8-22); CALCIUM 8.1 mg/dL (8.8-10.2); CHLORIDE 105 mmol/L (98-107); COSMO 275; CREATININE 0.5 mg/dL (0.7-1.2); ESTIMATED GFR > 60; GLUCOSE 98 mg/dL (70-104); MAGNESIUM 2.4 mg/dL (1.5-2.7); PHOSPHORUS 4.3 mg/dL (2.7-4.5); POTASSIUM 4.3 mmol/L (3.5-5.1); SODIUM 138 mmol/L (136-145); TCO2 22 mmol/L (25-35)
[2018-08-06] MEDS: PERIDEX MT SCH ×2 (08:42→22:00)
[2018-08-06] MEDS: CLINIMIX E 4.25%-5% SOLUTION 1,000 ML IV SCH ×4 (08:44→23:45)
--- NOTE | 2018-08-06 20:36 | PROGRESS NOTE ---
DATE: 08/06/2018 SUBJECTIVE: The patient is a little better. Pain is better. Eating soft diet. PHYSICAL EXAMINATION: Vital signs: Temperature is 97 degrees. Vitals are stable. HEENT: Left jaw pain is improving. Chest: Clear. Heart: Sounds are regular. Physical exam no change. INVESTIGATIONS: CBC: White cell count 4.6, hematocrit 26, platelets 149,000. SMA-7 is normal. ASSESSMENT AND PLAN: 1. Left jaw necrosis. The patient will be discharged in the morning to follow up with Dr. Dk Hutton in [facility]. 2. Dehydration is better. 3. Electrolytes are improving. 4. Multiple myeloma, stable. 5. Acid reflux disease, on Prilosec. 6. Hopefully, the family will go to [place] in the morning to [facility] and will follow up. LEVEL OF DOCUMENTATION: 25 minutes. cc: Lucio Cramer MD
[2018-08-06] MEDS: PROTONIX IV SCH (22:00)
[2018-08-07] MEDS: ZOSYN 3.375 GM in NS 50 ML IV SCH (03:20)
[2018-08-07 08:09] VITALS: BP 103/68
[2018-08-07] MEDS: PERIDEX MT SCH (08:34)
--- NOTE | 2018-08-08 05:20 | DISCHARGE SUMMARY ---
ADMISSION DATE: 07/29/2018 DISCHARGE DATE: 08/07/2018 DISCHARGING DIAGNOSIS: Left jaw pain due to osteonecrosis of mandible with osteomyelitis. SECONDARY DIAGNOSES: 1. Nonsecretory myeloma. 2. Dehydration. 3. Electrolyte abnormalities, hypokalemia, hypocalcemia, hypomagnesemia, hypophosphatemia. 4. Left maxillary sinusitis. 5. Acid reflux disease. CONSULTS: 1. Dr. Stone. 2. Dr. Benítez. BRIEF HISTORY: Please see the H and P that was done by Dr. Bauer. In brief, the patient is a 63- year-old pleasant white male, unfortunately has been diagnosed with nonsecretory myeloma, under the care of Dr. Stone, and presented to the emergency room with jaw pain, not able to eat. He was profoundly cachectic, dehydrated. His dental hygiene was poor. Apparently, patient was referred to Dr. Benítez, who referred to Dr. Dk Hutton at [facility] at [facility]. He had removal of teeth. The pain was excruciating in the left side of the jaw. HOSPITAL COURSE: The patient was given IV fluids, subsequently Clinimix, followed by a electrolytic replacement with low potassium, low magnesium, low calcium, low phosphate. Pain is adequately controlled with lidocaine swish and swallow, Peridex for dental hygiene, and Toradol. At this time, the chemotherapy was on hold. CT of the head showed left maxillary sinusitis on the left jaw bone reported community fracture with osteonecrosis and localized osteo. The patient was given IV Zosyn, and slowly again able to tolerate soft diet. I spoke to the resident who is covering for Dk Hutton, he is going to see him as an outpatient clinic on Sunday at 1 p.m. DISCHARGE LABS: At the time of discharge, labs as follows. CBC: White cell count 4.6, hematocrit 25.8, platelet count 149,000. Sodium 138, potassium 4.3, chloride 105, BUN 11, creatinine 0.5, uric acid 0.6, calcium, magnesium, phosphorus were normal. Blood cultures were negative. RADIOLOGY PROCEDURES: Head CT reported left maxillary sinusitis. Maxillofacial CT, complex comminuted fracture with osteonecrosis of left mandible. DISCHARGE INSTRUCTIONS: 1. Prilosec 40 daily, Zofran for p.r.n. nausea. We will hold the Velcade, Valtrex, Revlimid, warfarin for the time being. Xylocaine viscous q.3 as needed for pain. Peridex for dental hygiene. 2. Follow up with the Dr. Dk Hutton, oral surgeon, in [facility] in [place]. 3. Follow up with Dr. Stone for maintenance treatment for multiple myeloma. cc: MD Zak Brown MD William F. Littlejohn, MD
== END 2018-08-07 12:02 | disposition home or self-care (01) | DRG 543 ==
LOC: SUPCPDRO → ED 16:55 → 3N 20:30
PROVIDERS: ADMIT Internal Medicine; ATTEND Internal Medicine
CPT/HCPCS: 70450; 70487; 71010; 71045; 80048; 80053; 81001; 82150; 82306; 82550; 82607; 83605; 83735; 84100; 84439; 84443; 84484; 84550; 85025; 85610; 85651; 85730; 87040; 94761; 94799; 96372; 97110; 97161; 97530; 99285; A9270; C9113; J0610; J0696; J1650; J2543; J3475; J3480; J7030; J7040; J7050; Q9967; S0164

== ENCOUNTER 2018-08-29 17:58 | Inpatient (IN) ==
[2018-08-29 20:15] LABS: BASO# 0.02 X1000 (0.0-0.2); BASO% 0.3 % (0.0-0.8); EOS# 0.05 X1000 (0.0-0.7); EOS% 0.7 % (0.0-10.0); HEMOGLOBIN 8.5 g/dL (14.0-18.0); IMM GRAN# 0.06 X1000 (0.0-0.04); IMM GRAN% 0.9 % (0.0-0.5); LYMPH# 1.34 X1000 (1.2-3.4); LYMPH% 19.4 % (20.5-51.1); MCH 32.6 PG (27-31); MCHC 31.5 g/dL (33-37); MCV 103.4 FL (81-99); MONO% 10.2 % (1.7-9.3); MPV 11.2 FL (7.4-10.4); NEUT# 4.72 X1000 (1.4-6.5); NEUT% 68.5 % (42.2-75.2); PLT 312 X1000 (130-400); RBC 2.61 XMIL (4.7-6.1); RDW 17.5 % (11.5-14.5); WBC 6.89 X1000 (4.8-10.8)
[2018-08-29 20:48] LABS: URINE SOURCE CLEAN CATCH
[2018-08-29 20:55] LABS: BILIRUBIN URINE NEGATIVE (NEGATIVE); BLOOD URINE NEGATIVE (NEGATIVE); COLOR YELLOW; GLUCOSE URINE NEGATIVE (NEGATIVE); KETONE URINE 40 mg/dL (NEGATIVE); LEUKOCYTES URINE NEGATIVE (NEGATIVE); NITRITE URINE NEGATIVE (NEGATIVE); PH URINE 6.5; PROTEIN URINE TRACE mg/dL (NEGATIVE); SP GRAVITY URINE 1.014; TURBIDITY URINE CLEAR (CLEAR); UROBILINOGEN URINE NORMAL (NORMAL)
[2018-08-29 20:56] LABS: UR EPITHELIAL CELLS <10 /HPF (<10); URINE BACTERIA NEGATIVE /HPF; URINE RBC <10 /HPF (<10); URINE WBC <10 /HPF (<10)
[2018-08-29 21:14] LABS: AGAP 14; ALB/GLOB RATIO 1.3; ALBUMIN 2.9 g/dL (3.5-5.0); ALKALINE PHOSPHATASE 79 U/L (32-122); BUN 9 mg/dL (8-22); CALCIUM 8.1 mg/dL (8.8-10.2); CHLORIDE 104 mmol/L (98-107); COSMO 283; CREATININE 0.5 mg/dL (0.7-1.2); ESTIMATED GFR > 60; GLUCOSE 90 mg/dL (70-104); GOT 21 U/L (10-34); GPT 10 U/L (10-44); LIPASE 37 U/L (13-60); POTASSIUM 2.9 mmol/L (3.5-5.1); SODIUM 143 mmol/L (136-145); TCO2 25 mmol/L (25-35); TOTAL BILIRUBIN 0.16 mg/dL (0.20-1.00); TOTAL PROTEIN 5.2 g/dL (6.3-8.3)
--- NOTE | 2018-08-29 21:19 | Diag Imaging Result Doc PS360 ---
CHEST-1 VIEW - 08/29/2018 INDICATION: weakness COMPARISON: 07/29/2018 FINDINGS: There is some stable mild infiltrate in the lateral right lung base. Heart size and pulmonary vascularity is normal. No pneumothorax or pleural effusion. IMPRESSION: No change from prior. Electronically signed by Jose Quezada 08/29/2018 9:17 PM
[2018-08-29] MEDS ORDERED: POTASSIUM CHLORIDE 20% LIQUID PO ONE (21:36)
--- NOTE | 2018-08-29 21:56 | Diag Imaging Result Doc PS360 ---
CT LUMBAR SPINE W/O CONTRAST - 08/29/2018 INDICATION: lumbar back pain s/p fall COMPARISON: X-ray series from 05/10/2016 FINDINGS: Bony mineralization is severely heterogeneous with numerous bony lucencies all throughout the spine and sacrum diffusely. There are mild to moderate central compression deformities at every level of the lumbar spine, most with about 20% loss of height. T12 is the worst level. No significant bony retropulsion. There are chronic bilateral L5 pars defects. IMPRESSION: Severely abnormal bones. Numerous compression fractures throughout the lumbar spine. This exam was performed using automated exposure control, adjustment of mA or kV according to patient size, and/or use of iterative reconstruction technique Electronically signed by Jose Quezada 08/29/2018 9:54 PM
--- NOTE | 2018-08-29 22:20 | Diag Imaging Result Doc PS360 ---
CT ABD/PELVIS W/IV CONT ONLY - 08/29/2018 INDICATION: abdominal pain COMPARISON: None FINDINGS: There is advanced COPD in the lung bases. There are some small nonspecific scattered infiltrates in the lower lobes bilaterally. Heart size is normal. There is a large hiatal hernia. The left kidney is extremely atrophic. There is also small left renal stone measuring about 3 mm. No visible obstruction. There is severe vascular disease. No bowel obstruction or inflammation. Urinary bladder, prostate, and rectum are normal. Bones are severely abnormal compatible with multiple myeloma. There are numerous central compression deformities all throughout the thoracolumbar spine. IMPRESSION: Numerous issues. This exam was performed using automated exposure control, adjustment of mA or kV according to patient size, and/or use of iterative reconstruction technique Electronically signed by Jose Quezada 08/29/2018 10:17 PM
[2018-08-29] MEDS ORDERED: LEVAQUIN 500 MG/D5W 500 MG/100 ML IVPB IV ONE (23:08)
--- NOTE | 2018-08-29 23:38 | PROVIDER DOCUMENTATION ---
This chart was entered by Jenny Pineda Scribe, acting as scribe for Riri Bearden MD. HPI-General Adult - General Chief Complaint: Weakness Stated Complaint: WEAKNESS, NAUSEA Time Seen by Provider: 08/29/18 19:33 Source: patient Allergies/Adverse Reactions: Patient Allergies Allergy/AdvReac Type Severity Reaction Status Date / Time No Known Allergies Allergy Verified 08/29/18 18:07 Home Medications: Home Medication List Medication Instructions Recorded Confirmed Last Taken Type Chlorhexidine Gluconate [Peridex] 15 ml MT BID #1 udc 08/07/18 08/29/18 Unknown Rx Lidocaine 2% Viscous [Xylocaine 2% 15 ml MT Q3H PRN PRN #1 bottle 08/07/18 08/29/18 Unknown Rx Viscous] Omeprazole [Prilosec] 40 mg PO DAILY #30 capsule. 08/07/18 08/29/18 Unknown Rx Ondansetron HCl [Zofran] 4 mg PO PRN PRN #30 tab 08/07/18 08/29/18 Unknown Rx Amoxicillin 1 cap PO TID 08/29/18 08/29/18 Unknown History - History of Present Illness -Gen Adult Nature of Presenting Problems: Pt is 63/m presenting to ED w/ c/o weakness, loss of appetite and nausea. Pt was recently in rehab facility and was released because he ran out of medicare. pt has not been able to fully recover and has been back at home living alone. He sts that he fell and now also has lower back pain and has had trouble getting out of bed due to his weakness. No fever, no cough, no nausea, vomiting, or diarrhea. hx of multiple myeloma Location of Pain/Injury: reports: back Pain Radiation: reports: no radiation Quality of Pain: reports: aching, other Severity: reports: mild Onset/Duration: reports: gradual Timing: reports: still present Context/Activities at Onset: reports: none, recent emotional stress Modifying Factors: improves with: nothing Associated Symptoms: reports: nausea, weakness. denies: diarrhea, vomiting Similar Symptoms Previously?: Yes Recently seen or treated by another doctor?: Yes Review of Systems - Adult - REVIEW OF SYSTEMS - ADULT Constitutional: reports: no symptoms reported. denies: chills, fever Eyes: reports: no symptoms reported Ears, Nose, Mouth & Throat: reports: no symptoms reported, other (Jaw pain due to chronic fracture). denies: ear pain, throat pain Cardiovascular: reports: no symptoms reported. denies: chest pain Respiratory: reports: no symptoms reported Gastrointestinal: reports: abdominal pain, nausea. denies: diarrhea, vomiting Genitourinary: reports: no symptoms reported Musculoskeletal: reports: back pain Neurological: reports: no symptoms reported. denies: dizziness/vertigo, headache/migraines Psychiatric: reports: no symptoms reported Endocrine: reports: no symptoms reported Hematologic/Lymphatic: reports: no symptoms reported Allergic/Immunologic: reports: no symptoms reported All Other Systems: Reviewed and Negative Past History - Adult - PAST MEDICAL HISTORY-ADULT Review of Records: reports: Old Records Reviewed, Nursing Assessment Review, Medications Reviewed, Social history reviewed & non-contributory. Major Childhood Illnesses: reports: denies history Cardiovascular: reports: denies history Respiratory: reports: denies history Gastrointestinal: reports: denies history Obstetrical/Gynecological: reports: denies history Genitourinary: reports: denies history Musculoskeletal: reports: denies history Neurological: reports: denies history Psychiatric: reports: denies history Endocrine/Immune: reports: denies history Other Conditions: reports: other (HIATAL HERNIA) - PRIOR SURGERIES/PROCEDURES Surgical/Procedure History: reports: reviewed, not pertinent - IMMUNIZATION STATUS Childhood Immunizations: See Nurse Assessment Flu Vaccine: See Nurse Assessment - FAMILY HISTORY Family History: reviewed, not pertinent - SOCIAL HISTORY Smoking: quit greater than 1 year Substance Use: none/never Alcohol Use Frequency: never Living Situation: alone Physical Exam-General - PHYSICAL EXAM-ADULT Initial Vital Signs Reviewed: Yes - CONSTITUTIONAL General Appearance: appears well, alert, no apparent distress, other (chronically ill appearing) - EYES Eyes: PERRL/EOMI, pink conjunctivae - HEAD, EARS, NOSE, MOUTH & THROAT HENMT: normocephalic/atraumatic, moist mucous membranes, normal ENT inspection, TMs normal, pharynx normal - NECK Neck: non-tender, full range of motion, supple, normal inspection - RESPIRATORY Respiratory: lungs clear, normal breath sounds - CARDIOVASCULAR Cardiovascular: normal peripheral pulses, no edema, no JVD, tachycardia (104) - GASTROINTESTINAL (ABDOMEN) Abdominal Exam: normal bowel sounds, soft, tenderness - LYMPHATIC Lymphatic: no adenopathy - MUSCULOSKELETAL Back Exam: normal inspection, no CVA tenderness Extremity: normal range of motion, non-tender, normal gait, normal inspection - SKIN Integumentary: normal color, warm/dry - NEUROLOGIC Neurologic: grossly normal, no motor/sensory deficits - PSYCHIATRIC Psych/Mental Status: normal mood/affect, normal thought content, normal thought process, oriented x 3 Progress - PLAN OF CARE/RESULTS Progress/Plan/Lab Results: Vital Signs - 8 hr 08/29/18 18:05 08/29/18 18:20 08/29/18 19:11 Temperature 97.8 F Pulse Rate 104 H 97 H 93 H Respiratory Rate 17 20 Blood Pressure 113/89 111/68 O2 Sat by Pulse Oximetry 100 98 100 08/29/18 19:31 Temperature Pulse Rate 103 H Respiratory Rate Blood Pressure 118/72 O2 Sat by Pulse Oximetry 100 Orders Category Date Time Status IV Insertion ORDERED Care 08/29/18 19:39 Active Nursing- Obtain EKG ONCE Care 08/29/18 19:39 Active CHEST-1 VIEW [RAD] Stat Exams 08/29/18 19:[address] ABD/PELVIS W/IV CONT ONLY [CT] Stat Exams 08/29/18 19:[address] LUMBAR SPINE W/O CONTRAST [CT] Stat Exams 08/29/18 19:39 Ordered CBC WITH DIFF [HEME] Stat Lab 08/29/18 19:39 Uncollected COMPREHENSIVE METABOLIC PANEL [CHEM] Stat Lab 08/29/18 19:39 Uncollected LIPASE [CHEM] Stat Lab 08/29/18 19:39 Uncollected TROPONIN T Stat Lab 08/29/18 19:39 Uncollected URINALYSIS W/POSS RFLX CULT [URINALYSIS] Stat Lab 08/29/18 19:39 Uncollected EKG [EKG] Stat Ther 08/29/18 19:39 Ordered generalized weakness with falls will further evaluate for causes including but not limited to dehydration, uti, electrolyte imbalance, pna, acs, fracture Result Diagrams: 08/29/18 18:31 08/29/18 20:36 - REASSESSMENT Reassessment #1 Status: unchanged (continued weakness with marked hypokalemia and infiltates concerning for PNA on CT as well a multiple compression fractures of varing stages of healing. potassium repleted and treated with levaquin and will admit. Discussed case with Dr. Ellington, Hospitalist, who will see and admit pt.) - EKG 1 Time of EKG reading by physician:: 18:04 EKG Read and Signed by:: Jason Augustine EKG Interpretation (*Must complete 3 of following elements*): Abnormal (sinus tachycardia, Rightward axis, Low voltage QRS, Borderline ECG) Rate: 101 Rhythm: sinus tachycardia Dewitt: right QRS: normal NH Interval: normal - XRAY 1 XRAY: Bilateral XRAY Study: Chest Impression: Abnormal Comparison with other Films: no changes (FINDINGS: There is some stable mild infiltrate in the lateral right lung base. Heart size and pulmonary vascularity is normal. No pneumothorax or pleural effusion. IMPRESSION: No change from prior. Electronically signed by Jsoe Quezada 08/29/2018 9:17 PM 08/29/183) - CT/MRI 1 CT Study: Lumbar Spine Impression: Abnormal (IMPRESSION: Severely abnormal bones. Numerous compression fractures throughout the lumbar spine. This exam was performed using automated exposure control, adjustment of mA or kV according to patient size, and/or use of iterative reconstruction technique Electronically signed by Jose Quezada 08/29/2018 9:54 PM) 2 CT Study: Abdomen, Pelvis Impression: Abnormal (FINDINGS: There is advanced COPD in the lung bases. There are some small nonspecific scattered infiltrates in the lower lobes bilaterally. Heart size is normal. There is a large hiatal hernia. The left kidney is extremely atrophic. There is also small left renal stone measuring about 3 mm. No visible obstruction. There is severe vascular disease. No bowel obstruction or inflammation. Urinary bladder, prostate, and rectum are normal. Bones are severely abnormal compatible with multiple myeloma. There are numerous central compression deformities all throughout the thoracolumbar spine. IMPRESSION: Numerous issues. This exam was performed using automated exposure control, adjustment of mA or kV according to patient size, and/or use of iterative recons truction technique Electronically signed by Jose Quezada 08/29/2018 10:17 PM 08/29/18 [id number]) - CONSULTS/PCP/HOSPITALIST Notification #1 *Consult/PCP/Hospitalist*: [place] Time Discussed: 23:30 Consult Disposition: Admit Departure - Departure Date of Disposition Decision: 08/29/18 Time of Disposition Decision: 23:37 DIAGNOSIS: Weakness, Hypokalemia, Compression fracture Pneumonia Qualifiers: Pneumonia type: due to unspecified organism Laterality: unspecified laterality Lung location: unspecified part of lung Qualified Code(s): J18.9 - Pneumonia, unspecified organism Disposition: ADMITTED INPATIENT 09 Certified Medical Emergency: Emergent Condition: Fair Referrals and Follow-Ups: Zee Cramer MD [Primary Care Provider] - - Critical Care Note This patient required my direct & personal management of CC.: No Attestation - Physician/ GLENNY Attestation Patient care was provided by Advanced Practice Provider:: No The physician spent face to face time with patient:: Yes Advanced Practice Provider documentation review:: Supervising physician onsite and consulted in the evaluation and care of this patient. The physician did have a face to face encounter with the patient. This chart was documented by the indicated scribe, (Jenny Pineda, [employer]) and accurately reflects the services I performed and decisions made by me, Riri Bearden MD, as attested by the provider's signature.
[2018-08-30 00:18] LABS: RETIC% 2.06 % (0.8-2.1)
--- NOTE | 2018-08-30 00:53 | HISTORY AND PHYSICAL ---
REASON FOR ADMISSION: Generalized weakness for the last 1 week. HISTORY OF PRESENT ILLNESS: Mr. Chucky Agrawal is an unfortunate 63-year-old man with past medical history of multiple myeloma and recently diagnosed as having left jaw osteonecrosis, after which he is following up with an oral surgeon in [place]. He also has a history of reflux disease. He reports that he was recently discharged from a residential in [place] just over a week ago and felt that he was not ready to go because he was profoundly weak. Since his discharge he says his functional status has been declining. He is barely able to get out of his wheelchair and, unfortunately, he lives alone. He denies any nausea, vomiting, diarrhea, genitourinary complaints. No cardiorespiratory complaints. No fever or chills. He does admit that his lower extremities have gotten weaker. He is also having chronic low back pain but this has worsened. He denies any sphincteric abnormalities. He also reports his appetite has declined due to the fact that he is having severe left jaw pain and he cannot open his mouth wide enough to take adequate nutrition. REVIEW OF SYSTEMS: Twelve system review was done, positive findings per HPI. ALLERGIES: None. MEDICATIONS: Have yet to be reconciled, although he does still use the Magic mouthwash and viscous lidocaine. FAMILY HISTORY: Negative for any diabetes, heart disease, or cancer in first-degree relatives. He has no children and he is not . SOCIAL HISTORY: He stopped smoking 2 weeks ago. No alcohol or illicit drug use. Lives alone. SURGICAL HISTORY: None. LABORATORY DATA: White count 6000, H and H 8 and 27, MCV 103, RDW of 17, platelet count 312,000, he has normal differential. Potassium is 2.9, BUN is 9, creatinine 0.5. Calcium 8.1, lipase and amylase normal. Urinalysis grossly unremarkable, except for ketones. CT of the abdomen and pelvis was done which showed advanced COPD in the bases, some nonspecific infiltrates in lower lobes, large hiatal hernia, severe vascular disease, Severe bone abnormalities consistent with multiple myeloma and extensive compression fracture throughout the thoracolumbar spine. His L-spine CT showed severely abnormal bones, numerous compression fractures throughout the lumbar spine. Chest x-ray showed bilateral infiltrates. PHYSICAL EXAMINATION: VITAL SIGNS: Blood pressure is 120/60, heart rate is 103, respirations 22, temperature is 97.8, 100% on room air. GENERAL: He is chronically ill, middle-aged man who is not in acute distress. He is alert and oriented to person, time with normal mood and affect. HEENT: Head is normocephalic, atraumatic. Eyes: He is anicteric, but pale. GLORIA, EOMI. ENT: The patient is unable to open his mouth widely for me to evaluate, but I do not see any gross oral lesions. The patient does have 2 large nodular and very tender lesions on his lower jaw. They are firm to touch. No reactive lymphadenopathy in the cervical chain. No central cyanosis. NECK: Supple. No JVD or carotid bruit. No thyromegaly. CHEST: Clear to auscultation. Has a barrel shaped chest. CARDIOVASCULAR: First and second heart sounds heard. No gallops, murmurs, rubs. Rhythm is regular. ABDOMEN: Scaphoid, soft with decreased bowel sounds. No mass or organomegaly appreciated. RECTAL: Deferred. EXTREMITIES: The patient has numerous chronic ulcerations and bruises in his lower extremities with various stages of healing. He has mild muscle wasting in his thighs. Distal pulses are slightly diminished, but they are symmetrical. Patient has no clubbing or peripheral cyanosis. NEUROLOGICAL: Surprisingly patient has about 3/5 power in his lower extremities. DTRs in his lower extremities are 1+. SKIN: See above, but otherwise grossly normal. MUSCULOSKELETAL: Grossly unremarkable otherwise. ASSESSMENT: 1. Generalized weakness, probably related to underlying malignancy. 2. Osteonecrosis of the left jaw. 3. Hypokalemia. 4. Chronic obstructive pulmonary disease. 5. Compression fracture of the thoracolumbar vertebral column. 6. Probably hospital-acquired pneumonia. 7. Anemia of probably neoplastic process. Cannot rule out underlying nutritional disorder from poor oral intake. PLAN: Patient will be hydrated with a goal to also replete potassium. Check magnesium and phosphorus and replete if needed. The patient's social situation is very worrisome in light of his functional status. This patient will not do well living alone and is at risk of having complications that will result in severe morbidity and mortality. We will treat patient with antipseudomonal antibiotics for now. Consult Dr. Stone for further input. Anemia workup will be done and any hematinic deficiency will be addressed. The patient will be transferred to the service of Dr. Cramer in the morning. cc: MD Lucio Horton MD Naveen T. Lobo, MD
[2018-08-30 00:54] LABS: TSH 0.45 uIUmL (0.27-4.20)
[2018-08-30] MEDS ORDERED: TYLENOL PO PRN (01:08)
[2018-08-30] MEDS: NS + KCL 20 MEQ 1,000 ML IV SCH ×3 (01:37→07:30)
[2018-08-30] MEDS: LOVENOX SUBQ SCH (01:42)
[2018-08-30] MEDS: ZOFRAN IV PRN (01:42)
[2018-08-30] MEDS: ZOSYN 3.375 GM in NS 50 ML IV SCH ×4 (01:43→22:19)
[2018-08-30] MEDS: OXY IR PO PRN ×2 (01:44→20:57)
[2018-08-30] MEDS ORDERED: TUMS PO ONE (02:37)
[2018-08-30 08:06] LABS: BASO# 0.02 X1000 (0.0-0.2); BASO% 0.4 % (0.0-0.8); EOS# 0.04 X1000 (0.0-0.7); EOS% 0.7 % (0.0-10.0); HEMATOCRIT 25.3 % (42.0-52.0); HEMOGLOBIN 7.9 g/dL (14.0-18.0); IMM GRAN# 0.04 X1000 (0.0-0.04); IMM GRAN% 0.7 % (0.0-0.5); LYMPH# 1.22 X1000 (1.2-3.4); LYMPH% 21.9 % (20.5-51.1); MCH 32.9 PG (27-31); MCHC 31.2 g/dL (33-37); MCV 105.4 FL (81-99); MONO# 0.53 X1000 (0.11-0.59); MONO% 9.5 % (1.7-9.3); MPV 10.6 FL (7.4-10.4); NEUT# 3.73 X1000 (1.4-6.5); NEUT% 66.8 % (42.2-75.2); PLT 282 X1000 (130-400); RDW 17.6 % (11.5-14.5); WBC 5.58 X1000 (4.8-10.8)
[2018-08-30 08:13] LABS: ESTIMATED GFR > 60
[2018-08-30 08:16] LABS: AGAP 10; ALBUMIN 2.5 g/dL (3.5-5.0); ALKALINE PHOSPHATASE 66 U/L (32-122); BUN 8 mg/dL (8-22); CALCIUM 7.9 mg/dL (8.8-10.2); CHLORIDE 108 mmol/L (98-107); COSMO 281; CREATININE 0.5 mg/dL (0.7-1.2); GLUCOSE 91 mg/dL (70-104); GOT 17 U/L (10-34); GPT 9 U/L (10-44); SODIUM 142 mmol/L (136-145); TCO2 24 mmol/L (25-35); TOTAL BILIRUBIN 0.23 mg/dL (0.20-1.00)
[2018-08-30] MEDS ORDERED: POTASSIUM PHOSPHATE 30 MEQ in NS 250 ML IV ONE (08:42)
[2018-08-30] MEDS ORDERED: MAGNESIUM SULFATE 2 GM/S.W.I. 2 GM/50 ML IVPB IV ONE (08:42)
[2018-08-30] MEDS: PEPCID IV SCH ×2 (09:41→20:57)
--- NOTE | 2018-08-30 16:00 | HEMO/ONC CONSULTATION ---
DATE: 08/30/2018 REASON FOR CONSULTATION: Patient is known to us for management of multiple myeloma. HISTORY OF PRESENT ILLNESS: We have been treating Mr. Agrawal for multiple myeloma until recently when he was diagnosed with having left jaw osteonecrosis. He was referred to an oral surgeon in [place]. He felt an extreme degree of weakness and was admitted to [facility] and subsequently discharged to a prison in [place]. He was discharged this past week and has been unable to care for himself at home. He has fallen out of his wheelchair. His family is not able to take care of him. He came to the .. last night in hopes for admission and eventual placement somewhere else. PAST MEDICAL HISTORY: Multiple myeloma and osteonecrosis of the jaw. SOCIAL HISTORY: He smokes tobacco daily. Denies alcohol or illicit drug use. HOME MEDICATIONS: Prilosec, Zofran, Velcade, Valtrex, dexamethasone, Revlimid, and warfarin. ALLERGIES: No known drug allergies. REVIEW OF SYSTEMS: Negative unless mentioned in the HPI. PHYSICAL EXAMINATION: VITAL SIGNS: Temperature is 98.7, pulse rate 88, respiratory rate 19, blood pressure 97.58, and O2 saturation 98% on room air. He reports zero out of 10 pain. GENERAL: Awake and lying in bed. HEENT: Jaw swelling noted. RESPIRATORY: Lungs clear to auscultation. CARDIOVASCULAR: S1 and S2 noted. Regular rate and rhythm. ABDOMEN: Soft, nontender, and nondistended. SKIN: Warm, dry, and intact. NEUROLOGICAL: Awake and oriented times 3. No focal deficits noted. LABORATORY DATA: White blood cells 5.58, hemoglobin 7.9, hematocrit 25.3, and platelet count 282. Potassium 3, creatinine 0.5, and magnesium 1. ASSESSMENT: 1. Multiple myeloma. 2. Generalized weakness, probably related to underlying malignancy. 3. Osteonecrosis of the jaw. 4. Hypokalemia. 5. Hypomagnesemia. 6. Chronic obstructive pulmonary disease. 7. Compression fracture of the thoracolumbar vertebral column. 8. Probable hospital-acquired pneumonia. 9. Anemia. PLAN: The patient does not do well living alone and he needs around the clock assistance. We agree with considering him for placement. We will follow labs accordingly and follow him over the weekend as needed. Dictated by ZACK Duong for Zak Stone MD Patient seen and examined. As above. Patient known to us for multiple myeloma. Recently has been diagnosed to have osteonecrosis of the jaw. He has been unable to take care of his teeth and has had poor hygiene. After his dental extraction he develops significant infectious issues with his jaw. He also has a fracture of his jaw due to which he has been unable to open his mouth. His by mouth intake has decreased. This is caused significant deconditioning. His oral surgeon in [place] has given him the option of reconstructive surgery but patient and the family after considering risks and benefits have decided to simply go with antibiotics. Due to his active infection and poor performance status, he is not a candidate for therapy at the current time. He is unable to take care of himself and family wants him to be in rehabilitation/prison. Dr. Cramer is working on that. Zak Stone M.D. cc: MD Lucio Guerrier MD [facility]
--- NOTE | 2018-08-30 19:27 | PROGRESS NOTE ---
DATE: 08/30/2018 SUBJECTIVE: A 63-year-old white gentleman with history of multiple myeloma off chemotherapy due to left jaw pain due to osteonecrosis with superimposed infection. The patient is deconditioning, not able to eat. Apparently, the patient was seen by Dr. Hutton, oral surgeon, and subsequently referred to [facility]. The gave the options to reconsider surgery, or lifelong antibiotics. He is not able to eat, he is slowly dwindling, and he was seen by Dr. Stone last night. He was extremely dehydrated, low blood pressure, tachycardic. The patient is awake. PHYSICAL EXAMINATION: Vital signs: Temperature is 98 degrees, pulse is 83, blood pressure is 106/69, 96% on room air. HEENT: Left jaw was inflamed with redness, impending pus. Poor nutritional status. Chest: Clear. Heart: Sounds are regular. Abdomen: Belly is soft, nontender. Neurologic: No obvious deficits. INVESTIGATIONS: CBC: White cell count 5.5, hematocrit 25, platelets 282,000. SMA-7: Potassium 3.0, magnesium 1.0, albumin 2.5. B12, folate, and TSH are normal. CT of the chest: Possible infiltrate in the right lower lobe. Lumbar spine: Multiple punch lesions consistent with multiple myeloma. Chest x-ray: No change. ASSESSMENT AND PLAN: 1. Right lower lobe pneumonia. Continue IV Zosyn and Levaquin. 2. Left mandible necrosis with osteomyelitis. Continue IV antibiotics. He is a poor candidate for surgical replacement. 3. Dehydration. IV fluids. 4. Hypokalemia, hypomagnesemia. Replacement. 5. Deep vein thrombosis and gastrointestinal prophylaxis with Lovenox and Pepcid. 6. Multiple myeloma. Consult Dr. Stone. Chemo on hold. 7. Possible mcc placement. 8. Will discuss with about lifelong IV antibiotics and [employer] consult. Change the diet to the pureed diet. Also need DNR, maybe Palliative Care consult. We will keep him over the weekend and reassess the problem on Sunday. LEVEL OF DOCUMENTATION: 25 minutes. cc: Lucio Cramer MD
[2018-08-30] MEDS: LEVAQUIN 500 MG/D5W 500 MG/100 ML IVPB IV SCH (20:50)
[2018-08-31] MEDS: ZOFRAN IV PRN ×5 (00:43→21:07)
[2018-08-31] MEDS: LOVENOX SUBQ SCH (00:43)
[2018-08-31] MEDS: ZOSYN 3.375 GM in NS 50 ML IV SCH ×4 (03:07→22:50)
[2018-08-31] MEDS: OXY IR PO PRN ×2 (05:23→15:33)
[2018-08-31 09:25] LABS: BASO# 0.02 X1000 (0.0-0.2); BASO% 0.4 % (0.0-0.8); EOS# 0.08 X1000 (0.0-0.7); EOS% 1.6 % (0.0-10.0); HEMATOCRIT 24.6 % (42.0-52.0); HEMOGLOBIN 7.5 g/dL (14.0-18.0); IMM GRAN# 0.04 X1000 (0.0-0.04); IMM GRAN% 0.8 % (0.0-0.5); LYMPH# 1.22 X1000 (1.2-3.4); LYMPH% 23.9 % (20.5-51.1); MCH 31.9 PG (27-31); MCHC 30.5 g/dL (33-37); MCV 104.7 FL (81-99); MONO# 0.45 X1000 (0.11-0.59); MONO% 8.8 % (1.7-9.3); NEUT# 3.29 X1000 (1.4-6.5); NEUT% 64.5 % (42.2-75.2); PLT 286 X1000 (130-400); RBC 2.35 XMIL (4.7-6.1); RDW 17.6 % (11.5-14.5); RETIC% 1.83 % (0.8-2.1); RETIC-HE 33.5 PG (28.2-36.6)
[2018-08-31 09:32] LABS: IRON SATURATION 20 %; TIBC 153 ug/dL; TOTAL IRON 30 ug/dL (53-167); UNBOUND IRON 123 ug/dL (112-346)
[2018-08-31] MEDS: PEPCID IV SCH ×2 (09:41→21:07)
[2018-08-31] MEDS ORDERED: INJECTAFER 750 MG in NS 250 ML IV ONE (09:44)
[2018-08-31 09:45] LABS: AGAP 9; ALB/GLOB RATIO 1.1; ALBUMIN 2.5 g/dL (3.5-5.0); ALKALINE PHOSPHATASE 62 U/L (32-122); BUN 6 mg/dL (8-22); CALCIUM 7.7 mg/dL (8.8-10.2); CHLORIDE 108 mmol/L (98-107); COSMO 280; CREATININE 0.5 mg/dL (0.7-1.2); ESTIMATED GFR > 60; GLUCOSE 91 mg/dL (70-104); GOT 14 U/L (10-34); GPT 9 U/L (10-44); POTASSIUM 3.2 mmol/L (3.5-5.1); SODIUM 142 mmol/L (136-145); TCO2 25 mmol/L (25-35); TOTAL BILIRUBIN 0.18 mg/dL (0.20-1.00); TOTAL PROTEIN 4.8 g/dL (6.3-8.3)
--- NOTE | 2018-08-31 10:15 | HEMO/ONC PROGRESS NOTE ---
DATE: 08/31/2018 SUBJECTIVE: Mr. Agrawal is awake, sitting up in bed. He has eaten up to 75% of his breakfast. He is feeling well and comfortable. He is wanting help getting cleaned up. He has no complaints today. OBJECTIVE: Vital Signs: Temperature 98.1 degrees, pulse rate 80, respiratory rate 18, blood pressure 94/65, O2 saturation 94% on room air. States he is in 7/10 pain to the left jaw. HEENT: Left jaw inflamed with redness, impending pus, poor nutrition status. Respiratory: Lungs clear to auscultation. Cardiovascular: S1, S2 noted. Sounds regular rate and rhythm. Gastrointestinal: Abdomen is soft, nontender, nondistended. LABORATORY: WBCs 5.10, hemoglobin 7.5, hematocrit 24.6, platelet count 286,000. Chemistry is pending today, looking for improvement in potassium and magnesium levels. ASSESSMENT: 1. Multiple myeloma. 2. Generalized weakness related to underlying malignancy and poor nutritional status. 3. Osteonecrosis of the jaw. 4. Hypokalemia. 5. Hypomagnesemia. 6. Chronic obstructive pulmonary disease. 7. Compression fracture of thoracolumbar vertebral column. 8. Probable hospital-acquired pneumonia. 9. Anemia. PLAN: Due to his deterioration and deconditioning that is most likely due to poor nutritional status related to jaw pain, the patient is waiting on placement with a rehabilitation/care home. Hospital staff and Dr. Cramer are working on his transfer. The patient is comfortable. We are attempting to correct some electrolyte imbalances. He is not a candidate for chemotherapy from our standpoint. We will continue to follow. Dictated by ZACK Duong for Zak Stone MD cc: MD Lucio Guerrier MD [facility]
[2018-08-31 11:58] LABS: LDH 157 U/L (135-225)
--- NOTE | 2018-08-31 13:23 | PROGRESS NOTE ---
DATE: 08/31/2018 SUBJECTIVE: Patient says he is feeling overall a little better. He seems to think the left jaw actually might be a little better after addition of a second antibiotic per Dr. Gary yesterday. OBJECTIVE: Vitals: Afebrile. Pulse is 80. Respirations 18. Blood pressure 94/65. HEENT: Moderate left mandibular swelling, chronic. CV: RRR without distinct murmur. Lungs: Distant breath sounds on the right. Cannot rule out crackle left lung base. Distant breath sounds on the left. ASSESSMENT: 1. Right lower lobe pneumonia. 2. Left mandibular necrosis and osteomyelitis. 3. Dehydration. 4. Hypokalemia. 5. Hypomagnesemia. 6. Multiple myeloma followed by Dr. Stone. 7. Iron-deficiency anemia. PLAN: We will repeat labs in the morning to include CBC, BMP, magnesium, phosphorus levels. Oncology has given him some IV Injectafer today, and he received magnesium and K-Phos yesterday by IV. He is eating some. We will continue IV Levaquin and Zosyn, and repeat labs in the morning. cc: MD Lucio Albert MD
[2018-08-31] MEDS: SODIUM CHLORIDE 0.9% INJ SCH (21:07)
[2018-08-31] MEDS: LEVAQUIN 500 MG/D5W 500 MG/100 ML IVPB IV SCH (21:11)
[2018-09-01] MEDS: ZOFRAN IV PRN ×4 (01:17→16:08)
[2018-09-01] MEDS: LOVENOX SUBQ SCH (02:00)
[2018-09-01] MEDS: ZOSYN 3.375 GM in NS 50 ML IV SCH ×4 (05:06→22:15)
[2018-09-01 07:51] LABS: BASO# 0.01 X1000 (0.0-0.2); BASO% 0.2 % (0.0-0.8); EOS# 0.07 X1000 (0.0-0.7); EOS% 1.4 % (0.0-10.0); HEMATOCRIT 25.5 % (42.0-52.0); HEMOGLOBIN 7.8 g/dL (14.0-18.0); IMM GRAN# 0.04 X1000 (0.0-0.04); IMM GRAN% 0.8 % (0.0-0.5); LYMPH# 1.04 X1000 (1.2-3.4); LYMPH% 20.6 % (20.5-51.1); MCH 32.2 PG (27-31); MCHC 30.6 g/dL (33-37); MCV 105.4 FL (81-99); MONO# 0.42 X1000 (0.11-0.59); MONO% 8.3 % (1.7-9.3); NEUT# 3.47 X1000 (1.4-6.5); NEUT% 68.7 % (42.2-75.2); PLT 290 X1000 (130-400); RBC 2.42 XMIL (4.7-6.1); RDW 17.6 % (11.5-14.5); WBC 5.05 X1000 (4.8-10.8)
[2018-09-01 07:59] LABS: AGAP 12; BUN 4 mg/dL (8-22); CALCIUM 8.3 mg/dL (8.8-10.2); CHLORIDE 109 mmol/L (98-107); COSMO 287; CREATININE 0.5 mg/dL (0.7-1.2); ESTIMATED GFR > 60; GLUCOSE 88 mg/dL (70-104); MAGNESIUM 1.3 mg/dL (1.5-2.7); PHOSPHORUS 2.6 mg/dL (2.7-4.5); POTASSIUM 3.4 mmol/L (3.5-5.1); SODIUM 146 mmol/L (136-145); TCO2 25 mmol/L (25-35)
[2018-09-01] MEDS: PEPCID IV SCH ×2 (08:13→22:15)
[2018-09-01] MEDS: OXY IR PO PRN ×3 (08:22→16:08)
--- NOTE | 2018-09-01 11:47 | PROGRESS NOTE ---
DATE: 09/01/2018 SUBJECTIVE: Patient complains of an episode of vomiting last evening. He related it to reflux. He says he has been off his Prilosec and he thinks he needs his Prilosec back. He has been on Pepcid 20 mg IV q.12 hours. Zofran seemed to help calm his stomach some but he did not eat a lot this morning. OBJECTIVE: Afebrile, pulse 72, respirations 18, blood pressure 115/65, O2 saturation on room air 99-100% CV: RRR. Lungs: Clear. Jaw swelling on the left is chronic and might be mildly improved from yesterday. Abdomen: Soft, nontender, nondistended. Extremities: No calf tenderness, cords, or edema. Neurologic: Cranial nerves 2-12 are intact. Labs: Electrolytes are improving, showing sodium 146, potassium 3.4, chloride 109, CO2 25, BUN 4, creatinine 0.5, glucose 88, calcium 8.3, phosphorus 2.6, magnesium 1.3. White count 5, hemoglobin 7.8, platelets 290,000. ASSESSMENT: 1. Right pneumonia. 2. Left mandibular necrosis and history of osteomyelitis. 3. Dehydration, resolved. 4. Hypokalemia, hypomagnesemia, hypophosphatemia, improving. 5. Multiple myeloma, followed by Dr. Stone. 6. Iron deficiency anemia, having received Injectafer yesterday. We will add magnesium oxide. We will give one dose of potassium orally. 7. Gastroesophageal reflux disease. We will give him his Prilosec back. PLAN: Give him Zofran or Phenergan as needed for nausea and vomiting. Continue the Pepcid IV. Continue the pain medications as required. Continue Levaquin and Zosyn. We will continue prophylaxis of DVT with Lovenox. Supportive measures. Plan for rehab evaluation tomorrow. cc: MD Lucio Albert MD
[2018-09-01] MEDS: MAG-OX PO SCH (12:00)
[2018-09-01] MEDS: PRILOSEC PO SCH (12:44)
[2018-09-01] MEDS: LEVAQUIN 500 MG/D5W 500 MG/100 ML IVPB IV SCH (20:44)
[2018-09-01] MEDS: PHENERGAN IV PRN (22:15)
[2018-09-02] MEDS ORDERED: HALDOL IV ONE (00:42)
[2018-09-02] MEDS ORDERED: HALDOL IM ONE (00:42)
[2018-09-02] MEDS: PHENERGAN IV PRN ×2 (02:35→10:53)
[2018-09-02] MEDS: LOVENOX SUBQ SCH (03:35)
[2018-09-02] MEDS: ZOSYN 3.375 GM in NS 50 ML IV SCH ×4 (03:36→21:23)
[2018-09-02] MEDS: PRILOSEC PO SCH (06:12)
[2018-09-02 07:31] LABS: BASO# 0.01 X1000 (0.0-0.2); BASO% 0.2 % (0.0-0.8); EOS# 0.04 X1000 (0.0-0.7); EOS% 0.8 % (0.0-10.0); HEMATOCRIT 25.8 % (42.0-52.0); IMM GRAN# 0.04 X1000 (0.0-0.04); IMM GRAN% 0.8 % (0.0-0.5); LYMPH# 1.22 X1000 (1.2-3.4); LYMPH% 24.2 % (20.5-51.1); MCH 32.7 PG (27-31); MCV 105.3 FL (81-99); MONO# 0.47 X1000 (0.11-0.59); MONO% 9.3 % (1.7-9.3); MPV 10.9 FL (7.4-10.4); NEUT# 3.27 X1000 (1.4-6.5); NEUT% 64.7 % (42.2-75.2); PLT 288 X1000 (130-400); RBC 2.45 XMIL (4.7-6.1); RDW 17.8 % (11.5-14.5); WBC 5.05 X1000 (4.8-10.8)
[2018-09-02 07:37] LABS: AGAP 9; BUN 4 mg/dL (8-22); CHLORIDE 111 mmol/L (98-107); COSMO 287; GLUCOSE 83 mg/dL (70-104); POTASSIUM 3.2 mmol/L (3.5-5.1); SODIUM 146 mmol/L (136-145); TCO2 26 mmol/L (25-35)
[2018-09-02 07:38] LABS: CALCIUM 8.7 mg/dL (8.8-10.2); CREATININE 0.6 mg/dL (0.7-1.2); ESTIMATED GFR > 60; MAGNESIUM 1.4 mg/dL (1.5-2.7); PHOSPHORUS 2.1 mg/dL (2.7-4.5)
[2018-09-02] MEDS ORDERED: POTASSIUM PHOSPHATE 30 MEQ in NS 250 ML IV ONE (07:42)
[2018-09-02] MEDS ORDERED: MAGNESIUM SULFATE 2 GM/S.W.I. 2 GM/50 ML IVPB IV ONE (07:43)
[2018-09-02] MEDS: MAG-OX PO SCH (09:44)
[2018-09-02] MEDS: CLINIMIX E 4.25%-5% SOLUTION 1,000 ML IV SCH ×2 (09:46→18:02)
[2018-09-02] MEDS: SODIUM CHLORIDE 0.9% INJ SCH (10:53)
[2018-09-02] MEDS: PEPCID IV SCH ×2 (10:53→21:22)
[2018-09-02] MEDS: SODIUM CHLORIDE 0.9% INJ PRN (10:53)
[2018-09-02] MEDS: OXY IR PO PRN (11:11)
--- NOTE | 2018-09-02 13:07 | HEMO/ONC PROGRESS NOTE ---
DATE: 09/02/2018 SUBJECTIVE: The patient is sitting upright in bed. He states that he feels comfortable this morning. He does complain that he has not yet been helped with a bath or to the shower. He would really liked to clean up. He denies any pain. He states that he is eating a little. We are hoping for rehabilitation placement today or tomorrow. OBJECTIVE: Vital Signs: Temperature 98.3 degrees, pulse rate 76, respiratory rate 16, blood pressure 109/54, O2 saturation 96% on room air. Pain: He is in 0/10 pain. Respiratory: Lungs are clear to auscultation. ENT: Jaw noted the to be swollen on the left side. Abdomen: Soft, nontender, nondistended. Cardiac: S1 and S2 noted. Regular rate and rhythm. Extremities: No edema noted. Neurological: No focal motor deficits noted. DIAGNOSTIC STUDIES: WBC 5.05, hemoglobin 8.0, hematocrit 25.8, platelet count 288,000. Sodium 146, potassium 3.2, creatinine 0.6, magnesium 1.4. ASSESSMENT: 1. Multiple myeloma. 2. Generalized deconditioning. 3. Osteonecrosis of the jaw. 4. Hypokalemia. 5. Hypomagnesemia. 6. Chronic obstructive pulmonary disease. 7. Compression fracture of thoracolumbar vertebral columns. 8. Right-sided pneumonia. 9. Anemia. PLAN: The plan is to evaluate for rehabilitation today or tomorrow. Continue to encourage him toimprove nutrition. Give Zofran or Phenergan if he has stomach upset. Continue with Pepcid IV for reflux. Continue pain medications as required. Please clean patient up as an order has been placed. Please provide him ability for oral care. Dictated by ZACK Duong for Zak Stone MD cc: MD Lucio Guerrier MD [facility]
[2018-09-02] MEDS ORDERED: NS 500 ML IV ONE (15:00)
--- NOTE | 2018-09-02 19:44 | PROGRESS NOTE ---
DATE: 09/02/2018 SUBJECTIVE: Appreciate Dr. Stone consult. He is still in left jaw pain. OBJECTIVE: On examination, temperature is 97 degrees. Vitals are stable. HEENT Exam: Right poor dental hygiene. Left jaw is inflamed. Chest: Clear. Heart: Sounds are regular. Belly: Is soft, nontender. Neurologic: No obvious deficits. INVESTIGATIONS: CBC: White cell count 5, hematocrit 25, platelets were 288,000. Sodium 146, potassium 3.2, chloride 111, and his calcium is 8.7, phosphorus is low. Magnesium is low. ASSESSMENT AND PLAN: 1. Left jaw pain with osteomyelitis. Needs 6 weeks IV antibiotics with either vancomycin or daptomycin and needs PICC line or port. 2. Hypokalemia. Replacement. 3. Hypophosphatemia. Replacement. 4. Hypomagnesemia. Replacement. 5. Anemia. Transfuse a unit of packed red blood cells. 6. IV Clinimix. 7. Brim Flexer consult and we will arrange the rehab placement at this time. We will want to give at least 6 weeks of antibiotics and nourishment and chemotherapy on hold. We will communicate with Dr. Stone and continue present treatment. LEVEL OF DOCUMENTATION: 25 minutes. cc: Lucio Cramer MD
[2018-09-02] MEDS: LEVAQUIN 500 MG/D5W 500 MG/100 ML IVPB IV SCH (21:22)
[2018-09-02] MEDS: HALDOL IM PRN (22:20)
[2018-09-03] MEDS: LOVENOX SUBQ SCH (02:15)
[2018-09-03] MEDS: ZOSYN 3.375 GM in NS 50 ML IV SCH ×4 (03:54→21:03)
[2018-09-03] MEDS: CLINIMIX E 4.25%-5% SOLUTION 1,000 ML IV SCH ×2 (03:54→16:39)
[2018-09-03] MEDS: PRILOSEC PO SCH (06:44)
[2018-09-03] MEDS: PEPCID IV SCH ×2 (09:47→20:21)
[2018-09-03] MEDS: MAG-OX PO SCH (09:47)
[2018-09-03] MEDS: SODIUM CHLORIDE 0.9% INJ SCH ×2 (09:48→13:00)
[2018-09-03 09:56] LABS: INR 0.99; PROTIME 13.8 Seconds (11.0-16.0)
[2018-09-03] MEDS: OXY IR PO PRN ×3 (10:51→21:16)
[2018-09-03] MEDS: PHENERGAN IV PRN ×2 (13:00→21:15)
--- NOTE | 2018-09-03 13:18 | GENERAL SURGERY CONSULTATION ---
DATE: 09/03/2018 REQUESTING PHYSICIAN: Dr. Cramer. REASON FOR CONSULTATION: Placement of a port. HISTORY OF PRESENT ILLNESS: A 63-year-old gentleman, initially admitted on 08/30/2018 with a diagnosis of jaw osteonecrosis, who had seen an oral surgeon in [place]. He has had some functional decline since then, with also a report of multiple myeloma, who apparently has had difficulty taking care of himself at home. He has been planned to have potential chemotherapy, which has been put on hold given the osteonecrosis of the jaw, but needs IV antibiotics. I was asked to weigh an opinion. The patient seems to be doing okay. PAST MEDICAL HISTORY: Includes multiple myeloma and osteonecrosis of the jaw. PAST SURGICAL HISTORY: None. MEDICATIONS: Home medications and current MAR reviewed. ALLERGIES: None. SOCIAL HISTORY: Currently lives alone. FAMILY HISTORY: Reviewed with the patient and noncontributory. REVIEW OF SYSTEMS: A full 10-point review of systems was obtained, and negative except those specified in the HPI. PHYSICAL EXAMINATION: Vital Signs: The patient is currently afebrile. His vital signs are stable. General: No acute distress. Alert. HEENT: Normocephalic, atraumatic. Pupils equal, round, reactive to light. Mucous membranes moist. Oropharynx benign. Neck: Supple. Trachea midline. Cardiovascular: Regular rate and rhythm. Lungs: Grossly clear. Abdomen: Soft, nontender, nondistended. Extremities: Moves all extremities. Neurologic: Grossly intact. Skin: No signs of jaundice. Vascular: All extremities perfused. LABORATORY DATA: White blood cell count is 5, hematocrit 25, platelet count 288,000. Remainder of labs reviewed. IMAGING: None pertinent at this point. ASSESSMENT AND PLAN: A 63-year-old gentleman with multiple myeloma and osteomyelitis of his jaw. Need for intravenous access. At this time, there is concern that he needs 6 weeks of intravenous antibiotics. Will need to discuss further with Dr. Cramer. Given his current active infection, may want to put a peripherally-inserted central catheter line in first, and then proceed with a port. I think there are some logistic issues with his social situation that may prohibit either placement, but will need to discuss further with Dr. Cramer, but I am willing to do whatever is the best for the patient. cc: MD Lucio Daly MD
--- NOTE | 2018-09-03 19:04 | PROGRESS NOTE ---
DATE: 09/03/2018 SUBJECTIVE: The patient was sleeping well last night. He is agitated, requiring some Haldol and the left jaw still in pain. EXAMINATION: VITAL SIGNS: Temperature is 98.2, pulse is 86, blood pressure 107/59. Chest: Clear. Heart: Sounds are regular. Abdomen: Belly is soft, nontender. No obvious deficits. ASSESSMENT AND PLAN: 1. Left mandible osteomyelitis. Need IV antibiotics for 6 weeks. Hold on the Port-A-Cath. We will get a PICC line. I appreciate Dr. Ramirez consult and will set up IV vancomycin. 2. Anemia. Transfuse 1 unit of packed RBCs. 3. Prophylaxis as per order sheet. 4. Replace the electrolytes and repeat the labs in the morning. 5. director of housing and energy services consult for rehab placement LEVEL OF DOCUMENTATION: 25 minutes. cc: Lucio Cramer MD
[2018-09-03] MEDS: LEVAQUIN 500 MG/D5W 500 MG/100 ML IVPB IV SCH (20:10)
[2018-09-04] MEDS: LOVENOX SUBQ SCH (01:08)
[2018-09-04] MEDS: ZOSYN 3.375 GM in NS 50 ML IV SCH ×5 (04:26→21:33)
[2018-09-04] MEDS: PRILOSEC PO SCH ×2 (05:52→07:27)
[2018-09-04] MEDS: CLINIMIX E 4.25%-5% SOLUTION 1,000 ML IV SCH ×3 (07:28→18:18)
[2018-09-04 07:36] LABS: BASO# 0.01 X1000 (0.0-0.2); BASO% 0.2 % (0.0-0.8); EOS# 0.09 X1000 (0.0-0.7); EOS% 1.5 % (0.0-10.0); HEMATOCRIT 30.7 % (42.0-52.0); HEMOGLOBIN 9.5 g/dL (14.0-18.0); IMM GRAN# 0.14 X1000 (0.0-0.04); IMM GRAN% 2.3 % (0.0-0.5); LYMPH% 19.9 % (20.5-51.1); MCH 32.3 PG (27-31); MCHC 30.9 g/dL (33-37); MCV 104.4 FL (81-99); MONO# 0.54 X1000 (0.11-0.59); MPV 10.8 FL (7.4-10.4); NEUT# 4.05 X1000 (1.4-6.5); NEUT% 67.1 % (42.2-75.2); PLT 273 X1000 (130-400); RBC 2.94 XMIL (4.7-6.1); WBC 6.03 X1000 (4.8-10.8)
[2018-09-04 07:37] LABS: AGAP 9; ALB/GLOB RATIO 1.1; ALBUMIN 2.8 g/dL (3.5-5.0); ALKALINE PHOSPHATASE 62 U/L (32-122); BUN 14 mg/dL (8-22); CALCIUM 8.9 mg/dL (8.8-10.2); CHLORIDE 107 mmol/L (98-107); COSMO 280; CREATININE 0.7 mg/dL (0.7-1.2); ESTIMATED GFR > 60; GLUCOSE 100 mg/dL (70-104); GOT 13 U/L (10-34); GPT 7 U/L (10-44); MAGNESIUM 2.2 mg/dL (1.5-2.7); SODIUM 140 mmol/L (136-145); TCO2 24 mmol/L (25-35); TOTAL BILIRUBIN 0.23 mg/dL (0.20-1.00); TOTAL PROTEIN 5.3 g/dL (6.3-8.3)
[2018-09-04] MEDS ORDERED: NS 250 ML ONE (07:56)
[2018-09-04] MEDS ORDERED: POTASSIUM PHOSPHATE 30 MEQ in NS 250 ML IV ONE (08:01)
[2018-09-04] MEDS: PHENERGAN IV PRN ×2 (09:11→14:10)
[2018-09-04] MEDS: SODIUM CHLORIDE 0.9% INJ PRN ×2 (09:11→14:10)
[2018-09-04] MEDS: OXY IR PO PRN ×2 (09:31→14:10)
[2018-09-04] MEDS: MAG-OX PO SCH (09:31)
[2018-09-04] MEDS: PEPCID IV SCH ×2 (09:32→20:43)
[2018-09-04] MEDS: SODIUM CHLORIDE 0.9% INJ SCH (09:32)
--- NOTE | 2018-09-04 09:46 | HEMO/ONC PROGRESS NOTE ---
DATE: 09/04/2018 SUBJECTIVE: The patient continues to have no change in status. He is awaiting placement. No complaints. OBJECTIVE: Vital Signs: Temperature 97.8 degrees, pulse rate 77, respiratory rate 16, blood pressure 103/67, O2 saturation 100% on room air. He is in 0/10 pain. Physical Examination: Respiratory: Chest is clear to auscultation. Cardiac: S1, S2 noted. Regular rate and rhythm. Extremities: No edema noted. Gastrointestinal: Abdomen is soft, nontender, nondistended. Laboratory: WBCs 6.03, hemoglobin 9.5, hematocrit 30.7, platelet count 273,000. Creatinine 0.7. ASSESSMENT: 1. Multiple myeloma. 2. Generalized deconditioning. 3. Osteomyelitis of the jaw. 4. Hypokalemia. 5. Hypomagnesemia. 6. Chronic obstructive pulmonary disease. 7. Compression fracture of thoracolumbar vertebral column. 8. Right-sided pneumonia. 9. Anemia. PLAN: The patient's hypomagnesemia and hypokalemia have resolved. Due to the patient's jaw bone infection, he is in need of antibiotics for 6 weeks. He is having a PICC line placed so that he can have this at a rehabilitation center for the next [address] Cramer is getting him placed and he should be leaving later today. We will continue to follow up with him on an outpatient basis and determine the plan of care from there. Dictated by ZACK Duong for Zak Stone MD cc: MD Lucio Guerrier MD
[2018-09-04] MEDS: LEVAQUIN 500 MG/D5W 500 MG/100 ML IVPB IV SCH (20:43)
--- NOTE | 2018-09-04 21:04 | PROGRESS NOTE ---
DATE: 09/04/2018 SUBJECTIVE: Waiting for PICC line. Complains of left jaw pain. REVIEW OF SYSTEMS: None reported. OBJECTIVE: On exam, temperature 97 degrees, pulse 98, blood pressure 92/65. HEENT exam: Left jaw is inflamed. Physical exam no change. LABORATORY DATA: CBC: White cell count 6, hematocrit 30, platelets 273,000. Sodium 140, potassium 4.0, chloride 107, BUN 14, creatinine 0.7. Magnesium 2.2, phosphorus 2.0. ASSESSMENT AND PLAN: 1. Left jaw osteomyelitis. Six weeks of intravenous antibiotics with vancomycin. 2. Waiting for peripherally inserted central catheter line. 3. Anemia, better. 4. Hypophosphatemia. Replace the potassium and phosphate. 5. Palliative Care consult down the line. Waiting for placement. Continue present antibiotics with Zosyn and Levaquin. 6. Agitation. Haldol as needed. Level of documentation 25 minutes. cc: Lucio Cramer MD
[2018-09-05] MEDS: LOVENOX SUBQ SCH (01:26)
[2018-09-05] MEDS: HALDOL IM PRN (01:32)
[2018-09-05] MEDS: ZOSYN 3.375 GM in NS 50 ML IV SCH ×4 (05:08→21:29)
[2018-09-05] MEDS: CLINIMIX E 4.25%-5% SOLUTION 1,000 ML IV SCH ×3 (05:08→23:18)
[2018-09-05] MEDS: PRILOSEC PO SCH (06:01)
[2018-09-05] MEDS: MAG-OX PO SCH (09:11)
[2018-09-05] MEDS: PEPCID IV SCH ×2 (09:11→20:24)
[2018-09-05] MEDS: OXY IR PO PRN ×3 (09:21→19:04)
[2018-09-05] MEDS: PHENERGAN IV PRN ×2 (09:21→19:04)
[2018-09-05] MEDS: MIRALAX PO SCH (14:02)
[2018-09-05] MEDS: ZOFRAN IV PRN ×2 (14:19→20:38)
[2018-09-05] MEDS: LEVAQUIN 500 MG/D5W 500 MG/100 ML IVPB IV SCH (20:24)
--- NOTE | 2018-09-05 22:26 | PROGRESS NOTE ---
DATE: 09/05/2018 SUBJECTIVE: To patient's left jaw pain is better PICC line was initiated on the right side. OBJECTIVE: Temperature is 97. vitals are stable. Physical exam, no change. REVIEW OF SYSTEM: Constipated. ASSESSMENT AND PLAN: 1. Status post PICC line on the right side. 2. Continue IV antibiotics with vancomycin for 6 weeks. 3. Multiple myeloma, stable on hold. 4. Constipation. MiraLAX was given and waiting for placement tomorrow. 5. Continue present antibiotics, Levaquin and Zosyn. Dehydration is better, and increase the ambulation. Will attempt to discharge tomorrow LEVEL OF DOCUMENTATION: 25 minutes. cc: Lucio Cramer MD [facility]
[2018-09-06] MEDS: LOVENOX SUBQ SCH (00:53)
[2018-09-06] MEDS: OXY IR PO PRN ×5 (03:32→22:04)
[2018-09-06] MEDS: PHENERGAN IV PRN ×4 (03:35→21:22)
[2018-09-06] MEDS: SODIUM CHLORIDE 0.9% INJ PRN (03:36)
[2018-09-06] MEDS: ZOSYN 3.375 GM in NS 50 ML IV SCH ×2 (04:49→09:16)
[2018-09-06] MEDS: CLINIMIX E 4.25%-5% SOLUTION 1,000 ML IV SCH ×3 (04:49→21:20)
[2018-09-06] MEDS: PRILOSEC PO SCH (06:12)
[2018-09-06] MEDS: MIRALAX PO SCH (09:15)
[2018-09-06] MEDS: PEPCID IV SCH ×2 (09:16→21:20)
[2018-09-06] MEDS: MAG-OX PO SCH (09:16)
--- NOTE | 2018-09-06 09:34 | HEMO/ONC PROGRESS NOTE ---
DATE: 09/06/2018 SUBJECTIVE: The patient is comfortable in bed. He appears more clean than in the past couple of days. He has his PICC line in place. He is beginning to feel better. Dr. Cramer is attempting to get him discharged to a rehab facility today. OBJECTIVE: Vital Signs: Temperature 98.4 degrees, pulse rate 91, respiratory rate 20, blood pressure 104/60, O2 saturation 100% on room air. He is in 0/10 pain. Respiratory: Clear to auscultation. Cardiac: S1, S2 noted. Abdomen: Soft, nontender, nondistended. Extremities: No edema noted. LABORATORY DATA: No laboratory for today. ASSESSMENT: 1. Multiple myeloma. 2. Generalized deconditioning. 3. Osteomyelitis of the jaw. 4. Chronic obstructive pulmonary disease. 5. Compression fracture of thoracic vertebrae. 6. Right-sided pneumonia. 7. Anemia. PLAN: The plan is to continue to treat the patient's jaw osteomyelitis with 6 weeks of vancomycin at a rehab center. Plans for discharged today per Dr. Cramer. We will follow up with him accordingly on an outpatient basis in the clinic. Dictated by ZACK Duong for Zak Stone MD cc: MD Lucio Guerrier MD [facility]
--- NOTE | 2018-09-06 11:38 | DISCHARGE SUMMARY ---
ADMISSION DATE: 08/29/2018 DISCHARGE DATE: 09/17/2018 DISCHARGING DIAGNOSIS: Left jaw pain due to osteonecrosis and osteomyelitis of mandible. SECONDARY DIAGNOSES: 1. Multiple myeloma. 2. Dehydration. 3. Anemia due to chronic disease. 4. Left maxillary sinusitis. 5. Acid reflux disease. 6. Electrolyte abnormalities. 7. Hypokalemia. 8. Hypocalcemia. 9. Hypomagnesemia. 10. Hypophosphatemia. CONSULTATIONS: Dr. Stone. PROCEDURES: PICC line on the right side. BRIEF HISTORY: Please see the H and P that was done on 08/30/2018. In brief, he is a 63-year-old pleasant white male with above problems readmitted to the hospital from Dr. Stone's office with left jaw pain, dehydration, low blood pressure, and tachycardia. He cannot eat because of the jaw pain. He was seen by Dr. Anni diaz in [place]. Oral surgeon recommended IV antibiotics for 6 weeks, improve the nutritional status before the reconstructive surgery on the mandible. He was started on p.o. antibiotics which is not responding. At least, he needs IV antibiotics for 6 weeks. During his hospital course, he was given iron transfusion and blood transfusion 1 unit, and followed by IV fluids and IV Clinimix, and replace the electrolytes. He has been tolerating the pureed diet. He was given IV Levaquin and Zosyn for the jaw osteomyelitis as well as right lower lobe pneumonia on the CT. A PICC line was placed, and he was going to the rehab for 6 weeks of IV vancomycin as per the pharmacy protocol. LABORATORY DATA: On 09/04/2018, CBC: White cell count 6, hematocrit 30, and platelets 273,000. SMA 7. Sodium 140, potassium 4, chloride 107, BUN 14, creatinine 0.7, and magnesium 2.2. Albumin is 2.8. Blood cultures were negative. RADIOLOGY PROCEDURE: 1. CT scan of the abdomen and pelvis. COPD, possible infiltrate in the right lower lobe. Small left renal stone. Multiple compression deformities of thoracolumbar spine due to multiple myeloma. 2. Chest x-ray was stable. 3. Lumbar spine and severely abnormal bones with numerous compression fractures due to multiple myeloma. DISCHARGE INSTRUCTIONS: 1. Lidocaine viscous as needed for mouth pain. 2. Peridex 15 mL b.i.d. for mouth care. 3. Prilosec 40 daily. Zofran 4 mg as needed for nausea. 4. Ultracet 1 tablet q.6 for pain. 5. IV Rocephin Q 12 for 4 weeks. 6.Ultracet 1 tab q 6 hr as needed. 6. Repeat CBC, BMP, magnesium phosphate in 1 week. 7. Follow up with Dr. Stone for multiple myeloma. 8. He has an appointment to see a oral surgeon next month at [facility]. 9. Palliative Care consult also needs to be initiated. 10.Miralax 17 grams in 6 oz a day. 11.Flagyl 500 mg TID for 4 weeks. cc: MD Zak Brown MD [facility]
[2018-09-06] MEDS: ZOFRAN IV PRN ×2 (12:18→18:19)
--- NOTE | 2018-09-06 13:20 | Diag Imaging Result Doc PS360 ---
EXAM: MANDIBLE 09/06/2018 HISTORY: osteomyelitis TECHNIQUE: Mandible series 6 views COMMENT: There is sclerosis with coarsening of the trabecular pattern of the left side of the mandible and erosion of the inferior cortex of the body of the mandible. These findings are consistent with osteomyelitis. There are no previous plain radiograph series however there are similar findings on the CT of 07/31/2018. IMPRESSION: Findings consistent with chronic osteomyelitis of the left side of the mandible. Electronically signed by Paxton Falk 09/06/2018 1:18 PM
[2018-09-06] MEDS: INVANZ 1 GM/NS 1 GM/50 ML IVPB IV SCH (14:38)
[2018-09-06] MEDS: CUBICIN 350 MG in NS 100 ML IV SCH (14:38)
--- NOTE | 2018-09-06 15:18 | INFECTIOUS DISEASE CONSULT REP ---
DATE: 09/06/2018 CONCLUSION: The patient appears to have left mandibular osteomyelitis and osteonecrosis. The patient has pulmonary infiltrates. The one in the right lower lobe has not changed in over a month and thus I doubt that it is due to pneumonia. RECOMMENDATIONS: I have started the patient on daptomycin and ertapenem. DISCUSSION: The patient tells me that he came in the hospital because he is very weak. He has had swelling on his left jaw now for 6 months. He can't eat because it is very painful when he tries to chew and he barely can move, opening and closing his jaw also. His laboratory studies show a CBC with [place] 6030, hemoglobin 9.5, platelet count 273,000, creatinine is 0.7, GFR is greater than 60. Liver function studies are normal. Blood cultures are negative. Chest x- ray shows a right lower lobe infiltrate which has not changed in appearance in over a month. CT scan shows an atrophic left kidney and bilateral lower lobe infiltrates. PAST MEDICAL HISTORY/REVIEW OF SYSTEMS: Eyes/ears, he does not have any difficulty hearing or seeing. Neck, no stiffness. Cardiac, no chest pain or palpitations. GI, see present illness about why the patient can't eat well. He is not having diarrhea. Genitourinary, no dysuria or flank pain. Bones, joints, muscles, no swollen joints or muscle aching. Neurologic, no seizures. The patient has not lost any motor or sensory use. PREVIOUS HOSPITALIZATIONS AND OPERATIONS: Told me was only once in the hospital before and that was for testicular torsion. MEDICAL DISEASES: Positive for multiple myeloma. INFECTIOUS DISEASE HISTORY: Positive for mandibular osteomyelitis with osteonecrosis. FAMILY HISTORY: Positive for diabetes mellitus and hypertension. SOCIAL HISTORY: [place] He is . He lives alone. He quit smoking cigarettes recently. He does not drink alcoholic beverages or abuse drugs. His chart lists no known allergies. HOME MEDICATIONS: Consist of Peridex, Prilosec, Zofran, and Ultracet. PHYSICAL EXAMINATION: Vital Signs: Temperature is 98.2 degrees, pulse 99, respirations 20, blood pressure 100/60. Patient is 5 feet 10 inches tall, weighs 134 pounds. General: This is a chronically ill and malnourished-appearing, elderly male. He is in no acute distress. Head, Eyes, Ears, Nose, And Throat: He can hear my spoken words and see near objects. He has swelling and tenderness in the right mandibular area. He can barely move his mouth open or closed. Neck: No meningismus. Lungs: Clear to auscultation. Cardiovascular: Heart rate is regular. Abdomen: Soft and nontender. Neurologic: The patient is awake. He can move his extremities. He does not have a tremor. Integument: No rash noted. cc: MD Lucio Doe MD
--- NOTE | 2018-09-06 19:53 | PROGRESS NOTE ---
DATE: 09/06/2018 SUBJECTIVE: The patient is supposed to go to rehab today. Unfortunately, they will not do antibiotic duration. I did discuss with Dr. Martin. He does not want to do IV vancomycin. He wants to do daptomycin and Invanz. As a result, he lost the bed in the rehab placement. He is anxious to go home. OBJECTIVE: On examination,temperature is 98 degrees, blood pressure is stable. Physical exam no change. ASSESSMENT AND PLAN: Left mandible osteomyelitis. Continue intravenous antibiotics as per Dr. Martin. Recommendation is cancel the discharge and we will make the other alternatives to go to long-term acute care. We will hold the discharge until Sunday. Continue present treatment as per Dr. Martin. cc: Lucio Cramer MD
[2018-09-07] MEDS: CLINIMIX E 4.25%-5% SOLUTION 1,000 ML IV SCH ×5 (02:00→20:35)
[2018-09-07] MEDS: PRILOSEC PO SCH (05:59)
[2018-09-07] MEDS: OXY IR PO PRN ×4 (06:28→20:31)
[2018-09-07] MEDS: PHENERGAN IV PRN ×2 (06:28→15:08)
[2018-09-07] MEDS: ZOFRAN IV PRN ×2 (10:27→20:31)
[2018-09-07] MEDS: MIRALAX PO SCH (10:27)
[2018-09-07] MEDS: MAG-OX PO SCH (10:27)
[2018-09-07] MEDS: PEPCID IV SCH ×2 (10:27→20:31)
[2018-09-07] MEDS: LOVENOX SUBQ SCH (10:27)
[2018-09-07] MEDS: INVANZ 1 GM/NS 1 GM/50 ML IVPB IV SCH (11:34)
[2018-09-07] MEDS: CUBICIN 350 MG in NS 100 ML IV SCH (14:34)
--- NOTE | 2018-09-07 15:40 | PROGRESS NOTE ---
DATE: 09/07/2018 SUBJECTIVE: Appreciated Infectious Disease consultation and obviously the patient unable to go for rehab yesterday due to conflict of these antibiotics. Dr. Martin wants daptomycin and Invanz. Obviously, the [facility] people refuse to pay these medications. He has osteomyelitis of the left mandible. He has a PICC line on the right side. OBJECTIVE: On exam, vitals are stable. Physical exam with no change. ASSESSMENT AND PLAN: 1. Multiple myeloma, stable. 2. Anemia of chronic disease, stable. 3. Dehydration is better. 4. Left mandible osteomyelitis. Continue IV daptomycin and Invanz. Discontinue rehab and discussed with the family. We will defer to the LT[facility] evaluation and follow up. LEVEL OF DOCUMENTATION: 25 minutes. cc: Lucio Cramer MD
[2018-09-07] MEDS: HALDOL IM PRN ×2 (16:05→20:31)
[2018-09-07] MEDS ORDERED: STERILE WATER INJ. INJ PRN (16:55)
[2018-09-07] MEDS: GEODON IM PRN (17:08)
[2018-09-08] MEDS: CLINIMIX E 4.25%-5% SOLUTION 1,000 ML IV SCH ×2 (03:50→06:06)
[2018-09-08] MEDS: PRILOSEC PO SCH (06:06)
[2018-09-08] MEDS: PEPCID IV SCH ×2 (10:21→19:58)
[2018-09-08] MEDS: MAG-OX PO SCH (10:21)
[2018-09-08] MEDS: MIRALAX PO SCH (10:21)
[2018-09-08] MEDS: LOVENOX SUBQ SCH (10:21)
[2018-09-08] MEDS: OXY IR PO PRN ×4 (10:40→23:34)
[2018-09-08] MEDS: PHENERGAN IV PRN ×2 (10:40→19:39)
[2018-09-08] MEDS: CUBICIN 350 MG in NS 100 ML IV SCH (11:40)
[2018-09-08] MEDS: INVANZ 1 GM/NS 1 GM/50 ML IVPB IV SCH (11:41)
[2018-09-08] MEDS: ZOFRAN IV PRN ×2 (15:38→23:34)
[2018-09-08] MEDS: DUONEB (A & A) INH PRN (15:55)
--- NOTE | 2018-09-08 17:17 | PROGRESS NOTE ---
DATE: 09/08/2018 SUBJECTIVE: The patient wants a mechanical GI soft diet. Last night he was a little bit confused. Today he is docile. No complaints. OBJECTIVE: Vital signs: Temperature is 97 degrees, blood pressure is stable. Skin: He has large bruising noted. Chest: Bilateral air entry. Heart: Sounds are regular. Abdomen: Belly is soft, nontender. Good bowel sounds. Neurologic: No neurological deficits. LABORATORY: Procalcitonin is slightly high. ASSESSMENT: 1. Left jaw osteomyelitis. 2. PICC line on the right side. 3. Delirium. 4. Multiple myeloma. PLAN: 1. Change the soft diet, mechanical. 2. Geodon as needed. 3. Continue IV Invanz and daptomycin. 4. Waiting for placement LEVEL OF DOCUMENTATION: 25 minutes. cc: Lucio Cramer MD
[2018-09-08] MEDS: SODIUM CHLORIDE 0.9% INJ SCH (19:58)
[2018-09-09] MEDS: CLINIMIX E 4.25%-5% SOLUTION 1,000 ML IV SCH ×3 (00:14→08:10)
[2018-09-09] MEDS: PHENERGAN IV PRN ×4 (03:40→20:07)
[2018-09-09] MEDS: OXY IR PO PRN ×4 (03:40→20:12)
[2018-09-09] MEDS: SODIUM CHLORIDE 0.9% INJ PRN ×2 (03:40→20:07)
[2018-09-09] MEDS: PRILOSEC PO SCH (06:32)
[2018-09-09] MEDS: PEPCID IV SCH ×2 (08:09→20:08)
[2018-09-09] MEDS: MAG-OX PO SCH (08:09)
[2018-09-09] MEDS: LOVENOX SUBQ SCH (08:09)
[2018-09-09] MEDS: MIRALAX PO SCH (08:10)
[2018-09-09] MEDS: INVANZ 1 GM/NS 1 GM/50 ML IVPB IV SCH (11:55)
[2018-09-09] MEDS: CUBICIN 350 MG in NS 100 ML IV SCH (11:55)
[2018-09-09] MEDS: ZOFRAN IV PRN (15:57)
[2018-09-10] MEDS: CLINIMIX E 4.25%-5% SOLUTION 1,000 ML IV SCH ×3 (05:16→16:00)
[2018-09-10] MEDS: SODIUM CHLORIDE 0.9% INJ PRN (05:32)
[2018-09-10] MEDS: OXY IR PO PRN ×3 (05:32→18:22)
[2018-09-10] MEDS: PHENERGAN IV PRN (05:33)
[2018-09-10] MEDS: PRILOSEC PO SCH (06:10)
[2018-09-10] MEDS: ZOFRAN IV PRN ×3 (08:11→18:23)
[2018-09-10] MEDS: PEPCID IV SCH ×2 (08:38→08:50)
[2018-09-10] MEDS: LOVENOX SUBQ SCH (08:39)
[2018-09-10] MEDS: MIRALAX PO SCH (08:39)
[2018-09-10] MEDS: MAG-OX PO SCH (08:49)
[2018-09-10] MEDS: CUBICIN 350 MG in NS 100 ML IV SCH (12:35)
--- NOTE | 2018-09-10 13:36 | HEMO/ONC PROGRESS NOTE ---
DATE: 09/10/2018 SUBJECTIVE: The patient is awake, lying in bed. He states that he feels quite well. You can tell he is feeling better. He is looking forward to being discharged to a rehab so he can continue to improve. OBJECTIVE: Vital slgns: Temperature 97.9, pulse rate 89, respiratory rate 17, blood pressure 91/57. O2 saturation 93% on room air. 0 out of 10 pain. PHYSICAL EXAMINATION: General: Chronically ill looking gentleman in no acute distress. Respiratory: Lungs are clear to auscultation. Cardiovascular: Normal S1-S2. Abdomen: Soft, nontender, nondistended. HEENT: Left jaw remains swollen. Extremities: No edema noted. LABORATORY DATA: No labs today. ASSESSMENT: 1. Multiple myeloma. 2. Generalized deconditioning. 3. Osteomyelitis of the jaw. 4. Chronic obstructive pulmonary disease. 5. Compression fractures of thoracic vertebrae. 6. Anemia. 7. Delirium. 8. PICC line on the right side. PLAN: There is not much change in the patient's status. He continues to receive treatment for osteomyelitis of the jaw. We are awaiting a rehab treatment center where the patient can receive Invanz and Daptomycin for the next 6 weeks. We will follow up with the patient on an outpatient basis when he is able to come to the clinic. Dictated by ZACK Duong for Zak Stone MD cc: MD Lucio Guerrier MD [facility]
[2018-09-10] MEDS: INVANZ 1 GM/NS 1 GM/50 ML IVPB IV SCH (14:07)
[2018-09-11] MEDS: CLINIMIX E 4.25%-5% SOLUTION 1,000 ML IV SCH ×4 (01:36→19:48)
[2018-09-11] MEDS: OXY IR PO PRN ×4 (01:36→19:49)
[2018-09-11] MEDS: PRILOSEC PO SCH (06:18)
[2018-09-11] MEDS: SODIUM CHLORIDE 0.9% INJ PRN ×2 (06:33→13:24)
[2018-09-11] MEDS: PHENERGAN IV PRN ×2 (06:33→13:23)
[2018-09-11 07:20] LABS: BASO# 0.03 X1000 (0.0-0.2); BASO% 0.6 % (0.0-0.8); EOS# 0.16 X1000 (0.0-0.7); EOS% 3.1 % (0.0-10.0); HEMATOCRIT 31.4 % (42.0-52.0); HEMOGLOBIN 9.7 g/dL (14.0-18.0); IMM GRAN# 0.09 X1000 (0.0-0.04); IMM GRAN% 1.8 % (0.0-0.5); LYMPH% 27.2 % (20.5-51.1); MCH 33.1 PG (27-31); MCHC 30.9 g/dL (33-37); MCV 107.2 FL (81-99); MONO# 0.53 X1000 (0.11-0.59); MONO% 10.3 % (1.7-9.3); NEUT# 2.93 X1000 (1.4-6.5); PLT 195 X1000 (130-400); RBC 2.93 XMIL (4.7-6.1); RDW 17.6 % (11.5-14.5); WBC 5.14 X1000 (4.8-10.8)
[2018-09-11] MEDS: DUONEB (A & A) INH PRN ×2 (07:26→15:36)
[2018-09-11 07:34] LABS: AGAP 7; BUN 28 mg/dL (8-22); CHLORIDE 104 mmol/L (98-107); COSMO 283; GLUCOSE 99 mg/dL (70-104); POTASSIUM 4.1 mmol/L (3.5-5.1); SODIUM 139 mmol/L (136-145); TCO2 28 mmol/L (25-35)
[2018-09-11 07:35] LABS: CALCIUM 9.1 mg/dL (8.8-10.2); CK TOTAL 30 U/L (24-204); CREATININE 0.6 mg/dL (0.7-1.2); ESTIMATED GFR > 60
[2018-09-11] MEDS: LOVENOX SUBQ SCH (08:15)
[2018-09-11] MEDS: MIRALAX PO SCH (08:15)
[2018-09-11] MEDS: MAG-OX PO SCH (08:15)
--- NOTE | 2018-09-11 10:54 | PROGRESS NOTE ---
DATE: 09/09/2018 SUBJECTIVE: The patient eating well. No complaints. Waiting for disposition. OBJECTIVE: Vital Signs: Temperature 98, pulse 98, blood pressure is stable. Chest: Bilateral clear. Heart: Sounds are regular. Abdomen: Belly is soft, nontender. Good bowel sounds. Neurologic: No neurological deficits. ASSESSMENT: 1. Osteomyelitis of the left jaw. 2. PICC line on the right side PLAN: Antibiotic issue, will discuss with Dr. Kade Martin about continuing the antibiotics so Mr. Agrawal can go to the rehab. LEVEL OF DOCUMENTATION: 25 minutes. cc: Lucio Cramer MD
--- NOTE | 2018-09-11 13:08 | PROGRESS NOTE ---
DATE: 09/10/2018 SUBJECTIVE: The patient is still there. DISPOSITION: Pending. I am going to discuss with Dr. Kade Martin about changing the antibiotics so that he can go for rehab placement. [facility] has declined. The patient is tolerating the diet very well. OBJECTIVE: Temperature 98 degrees. Vitals are stable. Physical exam no change. ASSESSMENT AND PLAN: Left mandible osteomyelitis, multiple myeloma, stable, deconditioning. Continue present treatment. We will discuss with Dr. Martin about changing the antibiotics, and will follow up. cc: Lucio Cramer MD
[2018-09-11] MEDS: INVANZ 1 GM/NS 1 GM/50 ML IVPB IV SCH (13:23)
[2018-09-11] MEDS: CUBICIN 350 MG in NS 100 ML IV SCH (14:39)
[2018-09-11] MEDS: ZOSYN 3.375 GM in NS 50 ML IV SCH ×2 (15:13→19:50)
--- NOTE | 2018-09-11 16:42 | INFECTIOUS DISEASE PROGRESS NO ---
DATE: 09/09/2018 PRESENT ILLNESS: Mr. Agrawal is being treated for a left mandibular osteomyelitis and osteonecrosis. He did have some pulmonary infiltrates, but his procalcitonin is 0.16, which makes it unlikely that he has a respiratory tract infection. MEDICATIONS: He is on day 3 of daptomycin 350 mg IV every 24 hours and ertapenem 1 g IV every 24 hours. PHYSICAL EXAMINATION: Vital Signs: Temperature is 98.7 degrees, pulse rate 91, respiratory rate 15, blood pressure 112/65, O2 saturation is 100% on room air. General: This is a chronically ill- appearing, thin, elderly gentleman. He is lying in the bed, currently in no acute distress. HEENT: There is a scabby abrasion noted to the right side of the forehead as well as a fluctuant pocket of fluid to the mid left jaw as well as some mild swelling to the left jaw. Inside his mouth, there is some erythema to the left side of the oral vestibule. Conjunctivae are pale. Respiratory: Lung sounds are clear to auscultation bilaterally. No work of breathing is noted. Cardiovascular: Heart rate is regular. Abdomen: Soft, flat, and nontender. Bowel sounds are active. Neurologic: He is awake, alert, and appropriate. There is no tremor. He is able to move all his extremities in the bed independently. DIAGNOSTIC STUDIES: Procalcitonin level shows 0.16 which makes it unlikely that there is a respiratory tract infection. Blood cultures have shown no growth after 5 days. No imaging reports today. However, on Sunday, the mandibular x-ray showed findings consistent with chronic osteomyelitis of the left mandible. ASSESSMENT AND PLAN: Mr. Agrawal is being treated for left mandibular osteomyelitis. He states he is able to open his mouth more than he was able to before the weekend. He is receiving daptomycin and ertapenem, which we will continue. Today Dr. Martin has obtained a culture of the fluctuant area to the left jaw. We would like to see the results of this culture before he is discharged. He is going to need surgery, and according to Dr. Cramer's notes, he has an appointment in a month with an oral surgeon at [facility]. For now, we will continue daptomycin and ertapenem as ordered and check a creatine kinase in the morning along with his regular blood work. These plans have been discussed with and recommended by Dr. Martin. COMORBIDITIES: For Mr. Agrawal include that he is elderly, with multiple myeloma, advanced, chronic obstructive pulmonary disease, and severe vascular disease. Dictated by ZACK Pemberton for Kade Martin MD cc: MD Lucio Doe MD [facility]
--- NOTE | 2018-09-11 21:33 | INFECTIOUS DISEASE PROGRESS NO ---
DATE: 09/11/2018 PRESENT ILLNESS: Mr. Agrawal is being treated for left mandibular osteomyelitis. MEDICATIONS: He has been receiving daptomycin 350 mg IV every 24 hours and ertapenem 1 g IV every 24 hours for the last 5 days. PHYSICAL EXAMINATION: Vital signs: Temperature is 97.9 degrees, pulse rate 101, respiratory rate 18, blood pressure 112/64, O2 saturation is 99% on room air.General: This is a chronically ill- appearing, elderly gentleman. He is lying in bed, currently in no acute distress. HEENT: He has swelling and a fluctuant, fluid filled pocket noted to the left mandibular area. Oral mucous membranes are pink and moist. Conjunctivae are pale. Neck: Supple. Trachea is midline. Cardiovascular: Heart rate is regular. Respiratory: Lung sounds are clear to the right side and left upper lobe. Left lower lobe has crackles noted. No work of breathing is noted. Abdomen: Soft. Mildly tender on palpation. Bowel sounds are active. Neurologic: He is awake, alert and oriented to person and place. He does have some unintelligible babbling at times and confusion. Integumentary: There is a PICC line in place to the right upper arm. That site is without edema, erythema or drainage. LABORATORY AND X-RAY: Today his white count is 5.14, hemoglobin 9.7, platelet count 195,000. Creatinine is 0.6, estimated GFR is greater than 60. Creatine kinase today is 30. The wound culture to the left mandible so far has shown no growth on the preliminary report. No imaging reports today. ASSESSMENT AND PLAN: Mr. Agrawal is receiving daptomycin and ertapenem for osteomyelitis of the left mandible. He has continued to have issues with confusion so we will discontinue the ertapenem at this time, due to the possibility of central nervous system side effects with carbapenems. For now we will replace it with Zosyn 3.375 g intravenously every 6 hours. he is awaiting rehab placement which has yet to be arranged. We will continue daptomycin as ordered. These plans have been discussed with and recommended by Dr. Martin. COMORBIDITIES: for Mr. Agrawal include multiple myeloma, chronic obstructive pulmonary disease, anemia, protein-calorie malnutrition, and generalized deconditioning with confusion. Dictated by ZACK Pemberton for Kade Martin MD cc: MD Lucio Doe MD [facility]
--- NOTE | 2018-09-11 21:56 | PROGRESS NOTE ---
DATE: 09/11/2018 SUBJECTIVE: Patient is doing better, eating well, tolerating mechanical soft diet. Left jaw is improving. Waiting for disposition. Will discuss with Dr. Martin. OBJECTIVE: On exam, temperature is 98 degrees, pulse 94, blood pressure is stable. Left jaw is decreased in inflammation. Physical exam no change. LABORATORY DATA: CBC: White cell count 5.1, hematocrit 31, platelets 195,000. SMA 7: Sodium 139, potassium 4.1, chloride 104, BUN 28, creatinine 0.6. ASSESSMENT AND PLAN: 1. Left mandible osteomyelitis, on intravenous Invanz and daptomycin. 2. Multiple myeloma, stable. 3. Dehydration, anemia, better. Peripherally inserted central catheter line in the right side, and will discuss about alternate antibiotics that patient can go for rehabilitation placement, and follow up with Dr. Martin. LEVEL OF DOCUMENTATION: 25 minutes. cc: Lucio Cramer MD
[2018-09-12] MEDS: OXY IR PO PRN ×2 (00:52→05:02)
[2018-09-12] MEDS: PHENERGAN IV PRN ×3 (00:52→23:12)
[2018-09-12] MEDS: CLINIMIX E 4.25%-5% SOLUTION 1,000 ML IV SCH ×3 (03:31→17:30)
[2018-09-12] MEDS: ZOSYN 3.375 GM in NS 50 ML IV SCH ×4 (03:32→23:12)
[2018-09-12] MEDS: PRILOSEC PO SCH (06:40)
[2018-09-12] MEDS: DUONEB (A & A) INH PRN ×2 (08:14→15:57)
[2018-09-12] MEDS: MIRALAX PO SCH (10:40)
[2018-09-12] MEDS: LOVENOX SUBQ SCH (10:45)
[2018-09-12] MEDS: MAG-OX PO SCH (10:45)
--- NOTE | 2018-09-12 11:01 | HEMO/ONC PROGRESS NOTE ---
DATE: 09/11/2018 SUBJECTIVE: Patient is awake, sitting up in bed. He appeared awake and alert but is not able to converse appropriately. He seems a little bit confused. He is continuing to wait for discharge to a rehab. OBJECTIVE: Vital signs: Temperature 98.2, pulse rate 84, respiratory rate 18, blood pressure 99/57, O2 saturation 88% on room air. 0 out of 10 pain. PHYSICAL EXAMINATION: Lungs are clear to auscultation. Cardiovascular: Normal S1-S2. Abdomen: Soft, nontender, nondistended. HEENT: Left jaw remains swollen. Extremities: No edema noted. LABORATORY DATA: WBC 5.14, hemoglobin 9.7, hematocrit 31.4, platelet count 195,000. Creatinine 0.6. ASSESSMENT: 1. Multiple myeloma. 2. Generalized deconditioning. 3. Osteomyelitis of the jaw. 4. Chronic obstructive pulmonary disease. 5. Compression fractures of thoracic vertebra. 6. Anemia. 7. Delirium. 8. PICC line on the right side. PLAN: 1. Not much has changed in the patient's condition or status. We will continue to wait for rehab center that can continue his Invanz and Daptomycin for the next 6 weeks. 2. We will follow up with the patient on an outpatient discharge when he is able to be discharged. Dictated by ZACK Duong for Zak Stone MD cc: MD Lucio Guerrier MD
[2018-09-12] MEDS: CUBICIN 350 MG in NS 100 ML IV SCH (13:55)
--- NOTE | 2018-09-12 18:56 | INFECTIOUS DISEASE PROGRESS NO ---
DATE: 09/12/2018 PRESENT ILLNESS: Mr. Agrawal has a left mandibular osteomyelitis. MEDICATIONS: He is receiving daptomycin 350 mg IV every 24 hours and Zosyn 3.375 g IV every 6 hours. PHYSICAL EXAMINATION: Vital Signs: Temperature is 97.9, pulse rate 83, respiratory rate 20, blood pressure 99/66, O2 saturation is 96% on room air. General: This is a chronically ill- appearing, elderly gentleman. He is lying in bed, currently in no acute distress. HEENT: He does have some swelling and a fluctuant, fluid-filled pocket to the left mandibular area which is very tender. Oral mucous membranes are pink and moist. Conjunctivae are pale. Neck: Supple. Trachea is midline. Respiratory: Lung sounds are clear to auscultation in the upper lobes. Diminished in the bases with crackles noted to the left lower lobe. No work of breathing is noted. Abdomen: Soft, nontender, and flat. Bowel sounds are active. Cardiovascular: Heart rate is regular. Neurologic: He is awake, alert, and oriented to person, place and year. He is much more clear today and answering questions appropriately. There is a PICC line in place to the right upper arm without edema, erythema, or drainage. LABORATORY AND X-RAY: None available today. Left face culture showed no growth. ASSESSMENT AND PLAN: Mr. Agrawal has left mandibular osteomyelitis. We stopped ertapenem yesterday due to his continued confusion. Today, he seems to be more alert and appropriate. For now, we will continue on daptomycin and Zosyn as long as he is in the hospital. The patient apparently does not qualify for rehab placement and will need to go home at time of discharge. The plan will be for him to hopefully get his antibiotics either at home or as an outpatient in [facility]. As an outpatient, we will have him take Rocephin to 2 g IV daily for 6 weeks, along with the daptomycin. He will also need oral doxycycline and Flagyl at home to provide broad- spectrum coverage. I will talk with the nursing home social worker about the possibility of going home on these medications. These plans have been discussed with and recommended by Dr. Martin. COMORBIDITIES: For Mr. Agrawal include that he is elderly with protein-calorie malnutrition, chronic obstructive pulmonary disease, anemia, and generalized deconditioning. Dictated by ZACK Pemberton for MD Garo Doe#: [id number] cc: MD Lucio Doe MD [facility]
--- NOTE | 2018-09-12 22:01 | PROGRESS NOTE ---
DATE: 09/12/2018 SUBJECTIVE: Left jaw pain is improving. PICC line on the right side. Patient is getting daptomycin plus Invanz. Pus was removed from the left side of the jaw. Cultures were negative. The patient is tolerating the diet very well. Poor dentition. OBJECTIVE: Vital signs: Temperature is 98 degrees, tachycardic. Vitals are stable. Chest: Clear. Heart: Sounds are regular. Abdomen: Belly is soft, nontender. No obvious deficits. LABORATORY DATA: None obtained. Procalcitonin reported 0.16. I am going to repeat the sedimentation rate and CRP in the morning. ASSESSMENT AND PLAN: 1. Multiple myeloma. 2. Left jaw osteomyelitis. Continue IV antibiotics. Discussed with Dr. Martin. He is reluctant to get vancomycin due to toxicity. Continue present antibiotics until Sunday. Repeat the sedimentation rate and CRP. If he is getting stable, we will switch to the Zyvox and will discuss with the social media strategist so that he can get a bed in [facility] and follow up. LEVEL OF DOCUMENTATION: 25 minutes. cc: Lucio Cramer MD
[2018-09-13] MEDS: GEODON IM PRN (00:42)
[2018-09-13] MEDS: ZOSYN 3.375 GM in NS 50 ML IV SCH ×4 (01:13→17:20)
[2018-09-13] MEDS: CLINIMIX E 4.25%-5% SOLUTION 1,000 ML IV SCH ×3 (04:05→15:00)
[2018-09-13] MEDS: PRILOSEC PO SCH (06:27)
[2018-09-13] MEDS: MIRALAX PO SCH (08:10)
[2018-09-13] MEDS: MAG-OX PO SCH (08:10)
[2018-09-13] MEDS: LOVENOX SUBQ SCH (08:10)
[2018-09-13] MEDS: CUBICIN 350 MG in NS 100 ML IV SCH (11:52)
--- NOTE | 2018-09-13 12:33 | INFECTIOUS DISEASE PROGRESS NO ---
DATE: 09/10/2018 PRESENT ILLNESS: The patient has chronic left mandibular osteomyelitis. The patient has pulmonary infiltrates. The patient's procalcitonin of 0.16 means that it is unlikely that the patient has pneumonia. MEDICATIONS: This is the 4th day of treatment with daptomycin and ertapenem. PHYSICAL EXAMINATION: Vital signs: Temperature 97.9, pulse 89, respirations 17, blood pressure 91/67. General: This is a somewhat ill-appearing elderly male. He is in no acute distress, however. HEENT: He can hear my spoken words. He can see near objects. He does not have any white coating on his tongue. The patient's left mandible is swollen and tender. Yesterday we obtained some fluid that was sanguinopurulent in nature. Neck: No meningismus. Lungs: Clear to auscultation. Cardiovascular: Heart rate is regular. Abdomen soft and nontender. Neurologic: The patient is alert. He is able to ambulate. There is no tremor. LABORATORY AND X-RAY: Procalcitonin is 0.16, which implies that is unlikely the patient has pneumonia. The culture taken from the patient's mandibular drainage shows no growth at this time. X-ray of both mandibles shows chronic osteomyelitis. ASSESSMENT AND PLAN: I have discussed with the patient about doing surgery and antibiotics. I told him that to cure his bone infection it would require a combination of both surgery on the jaw and giving the patient antibiotics. I further told him that if he only took antibiotics and did not have surgery on the involved part of the mandible that I would be unable to cure the infection. For now the patient is getting antibiotics and is considering whether he wants to do surgery or not. COMORBIDITIES: The patient has multiple myeloma. He also is elderly. cc: MD Lucio Doe MD
[2018-09-13] MEDS: OXY IR PO PRN ×2 (13:26→22:02)
[2018-09-13] MEDS: PHENERGAN IV PRN ×2 (14:58→22:01)
--- NOTE | 2018-09-13 17:17 | INFECTIOUS DISEASE PROGRESS NO ---
DATE: 09/13/2018 PRESENT ILLNESS: Mr. Agrawal is being treated for a left mandibular osteomyelitis. MEDICATIONS: He is receiving Zosyn 3.375 g IV every 6 hours and daptomycin 350 mg IV every 24 hours. PHYSICAL EXAMINATION: Vital Signs: Temperature is 97.5 degrees, pulse rate 102, respiratory rate 18, blood pressure 103/62, O2 saturation is 98% on room air. General: This is a chronically ill- appearing, elderly gentleman. He is lying in the bed, currently mildly confused, but in no acute distress. HEENT: There is some swelling and tender fluctuant fluid-filled pocket to the left mandible. Conjunctivae are pale. Neck: Supple. Trachea is midline. Cardiovascular: Heart rate is regular. Respiratory: Lung sounds are clear to auscultation in the upper lobes. Diminished in the bases. Neurologic: He is drowsy, but arousable and oriented to person and place only. He is confused and speaking inappropriately. Integumentary: There is a PICC line in place to his right upper arm. The site is without edema, erythema or drainage. LABORATORY AND X-RAY: None available today. ASSESSMENT AND PLAN: Mr. Agrawal is being treated for left mandibular osteomyelitis. There is a necrotic component. He will need surgery. The plan is for him to have surgery on discharge I believe at [facility] in about a month or so. The facial culture did not identify any organisms, so we are providing broad-spectrum coverage using daptomycin and Zosyn, which we will continue while he is in the hospital. Once he is ready to be discharged, the plan will be to send him home on daptomycin and Rocephin daily at outpatient infusion, and to take oral Flagyl and doxycycline. These plans have been discussed with and recommended by Dr. Martin. COMORBIDITIES: Comorbidities for Mr. Agrawal include that he is elderly with protein calorie malnutrition, chronic obstructive pulmonary disease, anemia and some confusion. Dictated by ZACK Pemberton for Kade Martin MD cc: MD Lucio Doe MD [facility]
--- NOTE | 2018-09-13 21:46 | PROGRESS NOTE ---
DATE: 09/13/2018 SUBJECTIVE: Patient is getting better. He is sleeping. No complaints. Currently, he is receiving Zosyn and daptomycin now. I spoke to Dr. Donna Martin. PHYSICAL EXAMINATION: Vital Signs: Temperature is 97 degrees. Vitals are stable. HEENT: Left mandible is slightly tender. Poor dentition. Chest: Clear. Heart: Sounds are regular. Abdomen: Belly is soft, nontender. No obvious deficits. Extremities: PICC line on the right side noted. LABS: None reported. Repeat blood cultures, wound cultures were negative. ASSESSMENT: 1. Multiple myeloma. 2. Deconditioning. 3. Left mandible osteomyelitis. 4. Anemia. 5. Dehydration. PLAN OF CARE: 1. Stable. Continue intravenous antibiotics with now daptomycin and Zosyn over the weekend. Repeat the labs on Sunday. Consider other options to get a bed in rehabilitation. 2. Continue intravenous Clinimix. 3. Deep venous thrombosis prophylaxis with Lovenox. 4. MiraLAX or constipation. 5. Repeat the labs on Sunday. LEVEL OF DOCUMENTATION: 25 minutes. cc: Lucio Cramer MD
[2018-09-13] MEDS: SODIUM CHLORIDE 0.9% INJ PRN (22:01)
[2018-09-14] MEDS: ZOSYN 3.375 GM in NS 50 ML IV SCH ×4 (00:30→17:02)
[2018-09-14] MEDS: ZOFRAN IV PRN (00:36)
[2018-09-14] MEDS: HALDOL IM PRN (00:36)
[2018-09-14] MEDS: CLINIMIX E 4.25%-5% SOLUTION 1,000 ML IV SCH ×4 (01:34→21:06)
[2018-09-14] MEDS: PRILOSEC PO SCH (06:22)
[2018-09-14] MEDS: OXY IR PO PRN ×3 (06:35→20:59)
[2018-09-14] MEDS: MAG-OX PO SCH (09:14)
[2018-09-14] MEDS: LOVENOX SUBQ SCH (09:14)
[2018-09-14] MEDS: MIRALAX PO SCH (09:14)
[2018-09-14] MEDS: CUBICIN 350 MG in NS 100 ML IV SCH (12:24)
[2018-09-14] MEDS: PHENERGAN IV PRN (20:59)
[2018-09-15] MEDS: ZOFRAN IV PRN ×2 (00:08→23:24)
[2018-09-15] MEDS: ZOSYN 3.375 GM in NS 50 ML IV SCH ×5 (00:08→23:24)
[2018-09-15] MEDS: HALDOL IM PRN (00:08)
[2018-09-15] MEDS: PRILOSEC PO SCH (06:33)
[2018-09-15] MEDS: OXY IR PO PRN ×3 (06:38→21:09)
[2018-09-15] MEDS: PHENERGAN IV PRN ×3 (09:45→21:09)
[2018-09-15] MEDS: CLINIMIX E 4.25%-5% SOLUTION 1,000 ML IV SCH ×2 (09:45→23:24)
[2018-09-15] MEDS: SODIUM CHLORIDE 0.9% INJ PRN (09:45)
[2018-09-15] MEDS: MAG-OX PO SCH (09:47)
[2018-09-15] MEDS: MIRALAX PO SCH (09:47)
[2018-09-15] MEDS: LOVENOX SUBQ SCH (09:47)
[2018-09-15] MEDS: CUBICIN 350 MG in NS 100 ML IV SCH (12:56)
--- NOTE | 2018-09-15 13:11 | PROGRESS NOTE ---
DATE: 09/15/2018 Mr. Agrawal has multiple myeloma. His vital signs are stable. He has osteomyelitis of the mandible. His blood pressure, however, was 87/54. He is on IV daptomycin as well as Zosyn. He is not on any blood pressure medication at the present time. We will watch him closely. His pain is much better today. -8 cc: MD Lucio Glass MD
--- NOTE | 2018-09-15 15:22 | INFECTIOUS DISEASE PROGRESS NO ---
DATE: 09/15/2018 PRESENT ILLNESS: The patient has left mandibular osteomyelitis. MEDICATIONS: This is the ninth day of treatment with antibiotics for the patient's mandibular osteomyelitis. Currently, the patient is on daptomycin and Zosyn. PHYSICAL EXAMINATION: Vital Signs: Temperature is 97.9 degrees, pulse 97, respiration 16, blood pressure 112/84. General: This is a chronically ill-appearing, elderly male. He is in no acute distress. HEENT: He does have swelling in the area of the left mandible. The swelling is not getting any less in the past week. The patient still has some trismus. He does not have any white patches on his tongue that I could see. Neck: He does not have any neck pain when he moves his head or neck. Lungs: Clear to auscultation. Cardiovascular: Heart rate is regular. Abdomen: Soft and nontender. Extremities: The patient has a PICC in the right arm. The site is not erythematous or purulent. Neurologic: The patient is alert. He is able to ambulate. There is no tremor. IMAGING AND LABORATORY DATA: The patient does not have any radiographic study for today. The patient's CBC shows a white count of 5140, hemoglobin 9.7, platelet count 195,000. Creatinine is 0.9. GFR is greater than 60. CK is 30. Procalcitonin is 0.16, which translates into it being unlikely that the patient has pneumonia. The last chest x-ray, which was done on 08/29/2018, did show a mild infiltrate in the right lateral lung base. I am going to go ahead and also get a chest x-ray for tomorrow. ASSESSMENT AND PLAN: The patient has mandibular osteomyelitis. I plan on continuing the current antibiotics, namely daptomycin and Zosyn. For tomorrow, CBC, BMP, and CK levels have been drawn. COMORBIDITIES: The patient is elderly and he has malnutrition. He also has COPD. cc: MD Lucio Doe MD
--- NOTE | 2018-09-16 04:27 | PROGRESS NOTE ---
DATE: 09/14/2018 SUBJECTIVE: Mr. Agrawal is a known case of multiple myeloma. He has osteomyelitis of the left mandibular area. He is on IV daptomycin, as well as Zosyn. General condition is unchanged. His vital signs are stable. Blood pressure was 96/56. He is in a lot of pain with myeloma. -0 cc: MD Lucio Glass MD
[2018-09-16] MEDS: ZOSYN 3.375 GM in NS 50 ML IV SCH ×4 (05:57→23:00)
[2018-09-16] MEDS: PRILOSEC PO SCH (06:03)
[2018-09-16] MEDS: OXY IR PO PRN ×4 (06:03→20:08)
[2018-09-16] MEDS: PHENERGAN IV PRN ×3 (06:03→20:08)
[2018-09-16 07:35] LABS: BASO# 0.03 X1000 (0.0-0.2); BASO% 0.6 % (0.0-0.8); EOS# 0.26 X1000 (0.0-0.7); EOS% 5.2 % (0.0-10.0); HEMATOCRIT 31.6 % (42.0-52.0); HEMOGLOBIN 9.6 g/dL (14.0-18.0); IMM GRAN# 0.06 X1000 (0.0-0.04); IMM GRAN% 1.2 % (0.0-0.5); LYMPH# 1.47 X1000 (1.2-3.4); LYMPH% 29.3 % (20.5-51.1); MCH 32.3 PG (27-31); MCHC 30.4 g/dL (33-37); MCV 106.4 FL (81-99); MONO# 0.36 X1000 (0.11-0.59); MONO% 7.2 % (1.7-9.3); NEUT# 2.84 X1000 (1.4-6.5); NEUT% 56.5 % (42.2-75.2); PLT 216 X1000 (130-400); RBC 2.97 XMIL (4.7-6.1); WBC 5.02 X1000 (4.8-10.8)
[2018-09-16 07:44] LABS: AGAP 11; BUN 32 mg/dL (8-22); CALCIUM 9.3 mg/dL (8.8-10.2); CHLORIDE 104 mmol/L (98-107); CK TOTAL 27 U/L (24-204); COSMO 292; CREATININE 0.8 mg/dL (0.7-1.2); ESTIMATED GFR > 60; GLUCOSE 104 mg/dL (70-104); POTASSIUM 4.1 mmol/L (3.5-5.1); SODIUM 143 mmol/L (136-145); TCO2 28 mmol/L (25-35)
--- NOTE | 2018-09-16 08:02 | Diag Imaging Result Doc PS360 ---
EXAM: CHEST-2 VIEWS INDICATION: pneumonia TECHNIQUE: 2 views COMPARISON: 08/29/2018 FINDINGS: There has been interval placement of a right PICC line. The tip projecting over the lower SVC just superior to the atriocaval junction in the expected position. The small focal opacity at the right costophrenic angle appears to have improved slightly. However, it persists. There is mild atelectasis at the left lung base. No new consolidations are identified, otherwise. The cardiomediastinal silhouette and central vasculature are grossly unremarkable. IMPRESSION: Slight improvement of focal opacity at the right costophrenic angle. Electronically signed by Sen Castanon 09/16/2018 8:00 AM
[2018-09-16] MEDS: MIRALAX PO SCH (08:12)
[2018-09-16] MEDS: LOVENOX SUBQ SCH (08:12)
[2018-09-16] MEDS: MAG-OX PO SCH (08:12)
[2018-09-16] MEDS: CLINIMIX E 4.25%-5% SOLUTION 1,000 ML IV SCH ×3 (08:12→21:36)
--- NOTE | 2018-09-16 10:54 | INFECTIOUS DISEASE PROGRESS NO ---
DATE: 09/16/2018 PRESENT ILLNESS: The patient has a left mandibular osteomyelitis. He also has an opacity in the patient's right lower lobe which according to chest x-ray is improving. MEDICATIONS: The patient is on a combination of daptomycin and Zosyn. This is the 10th day of treatment with antibiotics for the patient's mandibular osteomyelitis. PHYSICAL EXAMINATION: Vital Signs: Temperature is 97.3 degrees, pulse 84, respirations 14, blood pressure 102/62. General: This is a chronically ill-appearing elderly male. He is in no acute distress. Head, eyes, ears, nose, and throat: He can hear my spoken words and see near objects. I did not see any white patches on his tongue. He still has trismus with limited opening and closing of his mouth. Neck: He does not have any neck pain when he moves his head or his neck. Lungs: Clear to auscultation. Cardiovascular: Heart rate is regular. Abdomen: Soft and nontender. Extremities: Patient has a PICC in the right arm. The site is not erythematous, swollen or tender. Neurologic: The patient is alert. He is able to ambulate on his own. There is no tremor. LAB AND RADIOGRAPHIC STUDIES: Chest x-ray shows improvement in the patient's right lower lobe opacity. The creatinine is 0.8. GFR is greater than 60. CBC shows a white count of 5020, hemoglobin 9.6, and platelet count 216,000. ASSESSMENT AND PLAN: The patient has mandibular osteomyelitis. He also may have a right lower lobe pneumonia which is improving with the current antibiotic therapy. My plan would be to continue with daptomycin and Zosyn since the patient is getting better on it. We may have to change the patient's antibiotics, however, because he may be going to a [facility] and unfortunately, they do not take patients if they were on an expensive antibiotic like daptomycin or if they are on an antibiotic that is given more than every 12 hours such as Zosyn which is given every 6 hours. COMORBIDITIES: The patient is elderly. He is has malnutrition. He also has COPD. cc: MD Lucio Doe MD
--- NOTE | 2018-09-16 12:00 | INFECTIOUS DISEASE PROGRESS NO ---
DATE: 09/16/2018 ADDENDUM: The patient is going to a senior care today. As I mentioned earlier, the senior care he is going to will not do the antibiotics that I have him on in the hospital. Instead, he will be sent to the senior care on the following: Rocephin 1 g IV every 12 hours and Flagyl 500 mg p.o. every 8 hours. Both of these antibiotics will be for 4 more weeks and that will complete a 6- week treatment course on the patient's mandibular osteomyelitis. I have also requested that while the patient is getting his antibiotics in the next 4 weeks that he have a CBC with a differential and a creatinine drawn every Sunday. Also, I have ordered that the patient is to have an appointment in my office in 4 weeks. cc: MD Lucio Doe MD
--- NOTE | 2018-09-16 13:18 | HEMO/ONC PROGRESS NOTE ---
DATE: 09/16/2018 SUBJECTIVE: The patient is awake, sitting up in the chair. He is awake and alert, but he is confused. He states that he feels well. He wants to get up and walk. OBJECTIVE: Vital Signs: Temperature 97.3 degrees, pulse rate 84, respiratory rate 14, blood pressure 102/62, O2 saturation 96% on room air. He has 6/10 jaw pain and abdomen pain. General: He is in no acute distress. Respiratory: Lungs are clear to auscultation. Cardiovascular: Normal S1, S2. Abdomen: Soft, nontender, nondistended. LABORATORY DATA: WBC 5.02, hemoglobin 9.6, hematocrit 31.6, platelet count 216,000. Creatinine 0.8. ASSESSMENT: 1. Multiple myeloma. 2. Generalized deconditioning. 3. Osteomyelitis of the jaw. 4. Chronic obstructive pulmonary disease. 5. Compression fracture of the thoracic vertebrae. 6. Anemia. 7. Delirium. 8. Line in the right extremity. PLAN: Very little change in the patient's condition. There is a plan to send him to a long term today. Dr. Martin is changing antibiotics to allow for the long term to infuse. He will change it to Rocephin 1 g every 12 hours and Flagyl 500 mg p.o. every 8 hours for the next 4 weeks. We will continue his follow along as needed. We will see him on an outpatient basis when he is able. Dictated by ZACK Duong for Zak Stone MD cc: MD Lucio Guerrier MD [facility]
[2018-09-16] MEDS: CUBICIN 350 MG in NS 100 ML IV SCH (17:32)
[2018-09-16] MEDS: ZOFRAN IV PRN (17:35)
--- NOTE | 2018-09-16 20:52 | PROGRESS NOTE ---
DATE: 09/16/2018 SUBJECTIVE: The patient is getting better. Discussed with Dr. Martin switching antibiotics, and obviously Dr. Martin recommended Rocephin 1 g IV q.12, Flagyl 500 q.8 for 4 more weeks. The patient is doing better. PHYSICAL EXAMINATION: Vital Signs: Temperature is 98, pulse 95. Vitals are stable. HEENT: Within normal limits. Neck: Supple. Chest: Clear. Heart: Sounds are regular. Neurologic: No neurological deficits. Blood cultures are negative. ASSESSMENT AND PLAN: 1. Left osteomyelitis. Continue intravenous Rocephin and Flagyl. 2. Peripherally inserted central catheter line in the right side. 3. Right lower lobe pneumonia, improving of chest x-ray. 4. The patient has a bed in the [facility] tomorrow. LEVEL OF DOCUMENTATION: 25 minutes. cc: Lucio Cramer MD
[2018-09-17] MEDS: OXY IR PO PRN ×3 (01:22→09:24)
[2018-09-17] MEDS: PHENERGAN IV PRN ×3 (01:22→09:24)
[2018-09-17] MEDS: CLINIMIX E 4.25%-5% SOLUTION 1,000 ML IV SCH (02:47)
[2018-09-17] MEDS: ZOSYN 3.375 GM in NS 50 ML IV SCH (05:14)
[2018-09-17] MEDS: PRILOSEC PO SCH ×2 (05:15→06:37)
[2018-09-17 07:21] VITALS: BP 104/67
[2018-09-17] MEDS: LOVENOX SUBQ SCH (08:26)
[2018-09-17] MEDS: MAG-OX PO SCH (08:26)
[2018-09-17] MEDS: MIRALAX PO SCH (08:47)
== END 2018-09-17 11:46 | DRG 157 ==
LOC: ED 17:58 → 3N 23:47 → SUATTDRO 23:47 → 3N 08-30 00:39
PROVIDERS: ADMIT Internal Medicine; ATTEND Internal Medicine
CPT/HCPCS: 36430; 36569; 70110; 71010; 71020; 71045; 71046; 72131; 74177; 80048; 80053; 81001; 82550; 82607; 82728; 82746; 82948; 83540; 83550; 83615; 83690; 83735; 84100; 84145; 84443; 84484; 85025; 85045; 85610; 86850; 86900; 86901; 86920; 87040; 87070; 87449; 93005; 94640; 94761; 97110; 97116; 97162; 97530; 99285; A9270; J0878; J1335; J1439; J1630; J1650; J1956; J2405; J2543; J2550; J3475; J3480; J3486; J7050; P9016; Q9967; S0028; XXXXX

== ENCOUNTER 2019-04-30 20:06 | Inpatient (IN) ==
[2019-04-30 20:53] LABS: BASO# 0.12 X1000 (0.0-0.2); BASO% 1.6 % (0.0-0.8); EOS# 0.08 X1000 (0.0-0.7); HEMATOCRIT 37.6 % (42.0-52.0); HEMOGLOBIN 12.4 g/dL (14.0-18.0); IMM GRAN# 0.47 X1000 (0.0-0.04); IMM GRAN% 6.1 % (0.0-0.5); LYMPH# 2.14 X1000 (1.2-3.4); MCH 33.7 PG (27-31); MCV 102.2 FL (81-99); MONO# 0.82 X1000 (0.11-0.59); MONO% 10.7 % (1.7-9.3); MPV 11.4 FL (7.4-10.4); NEUT# 4.02 X1000 (1.4-6.5); NEUT% 52.6 % (42.2-75.2); PLT 100 X1000 (130-400); RBC 3.68 XMIL (4.7-6.1); RDW 12.7 % (11.5-14.5); WBC 7.65 X1000 (4.8-10.8)
[2019-04-30 21:18] LABS: ALB/GLOB RATIO 2.4; ALBUMIN 4.6 g/dL (3.5-5.0); CALCIUM 10.7 mg/dL (8.8-10.2); CREATININE 2.8 mg/dL (0.7-1.2); POTASSIUM 4.1 mmol/L (3.5-5.1); TOTAL BILIRUBIN 0.55 mg/dL (0.20-1.00); TOTAL PROTEIN 6.5 g/dL (6.3-8.3)
[2019-04-30] MEDS ORDERED: NS 1,000 ML IV ONE ×2 (21:27→22:48)
[2019-04-30 21:39] LABS: URINE SOURCE CLEAN CATCH
--- NOTE | 2019-04-30 21:45 | PROVIDER DOCUMENTATION ---
HPI-General Adult - General Chief Complaint: Abdominal Pain Stated Complaint: left sided abd pain Time Seen by Provider: 04/30/19 20:29 Source: patient Allergies/Adverse Reactions: Patient Allergies Allergy/AdvReac Type Severity Reaction Status Date / Time No Known Allergies Allergy Verified 04/25/19 17:10 Home Medications: Home Medication List Medication Instructions Recorded Confirmed Last Taken Type Fentanyl 25 mcg TD DIRECTED 02/25/19 02/25/19 Unknown History Hydrocodone/Acetaminophen [[place]win 1 ea PO Q4-6H PRN PRN 02/25/19 02/25/19 02/25/19 History 7.5-325 Tablet] Omeprazole 40 mg PO DAILY 02/25/19 02/25/19 02/25/19 History Ondansetron Odt [Zofran Odt] 4 mg PO Q8-12H PRN PRN 02/25/19 02/25/19 Unknown History - History of Present Illness -Gen Adult Nature of Presenting Problems: [id number] presents to the ER with c/o NVD for 1 week. He was seen on 04/25/18 for constipation and is now back for excessive diarrhea. He reports he went to his PCP's office on Sunday and told he was dehydrated. It was suggested that he report to the ER, but he states he wanted to wait to see if it got any better. Today, he reports he is very weak and can barely stand. He denies any fever or ENT symptoms. He c/o generalized abd tenderness. Location of Pain/Injury: reports: generalized Quality of Pain: reports: cramping Severity: reports: mild Onset/Duration: reports: 1 week ago Associated Symptoms: reports: diarrhea, nausea, vomiting Similar Symptoms Previously?: Yes Recently seen or treated by another doctor?: Yes Review of Systems - Adult - REVIEW OF SYSTEMS - ADULT Constitutional: reports: see HPI. denies: chills, fever Eyes: reports: no symptoms reported Ears, Nose, Mouth & Throat: reports: no symptoms reported Cardiovascular: reports: no symptoms reported. denies: chest pain, orthopnea, syncope Respiratory: reports: no symptoms reported. denies: dyspnea on exertion, sh ortness of breath, wheezing Gastrointestinal: reports: see HPI, abdominal pain, diarrhea, nausea, poor appetite, vomiting. denies: rectal bleeding Genitourinary: reports: no symptoms reported. denies: dysuria, flank pain, h esitency, urgency Musculoskeletal: reports: no symptoms reported Integumentary: reports: no symptoms reported Neurological: reports: no symptoms reported Psychiatric: reports: no symptoms reported Endocrine: reports: no symptoms reported Hematologic/Lymphatic: reports: no symptoms reported Allergic/Immunologic: reports: no symptoms reported All Other Systems: Reviewed and Negative Past History - Adult - PAST MEDICAL HISTORY-ADULT Review of Records: reports: Old Records Reviewed, Nursing Assessment Review, Medications Reviewed, Social history reviewed & non-contributory. Major Childhood Illnesses: reports: denies history Cardiovascular: reports: denies history Respiratory: reports: denies history Gastrointestinal: reports: denies history Obstetrical/Gynecological: reports: denies history Genitourinary: reports: denies history Musculoskeletal: reports: cancer (multiple myeloma) Neurological: reports: denies history Psychiatric: reports: denies history Endocrine/Immune: reports: denies history Other Conditions: reports: other (HIATAL HERNIA) - PRIOR SURGERIES/PROCEDURES Surgical/Procedure History: reports: reviewed, not pertinent - IMMUNIZATION STATUS Childhood Immunizations: See Nurse Assessment Flu Vaccine: See Nurse Assessment - FAMILY HISTORY Family History: reviewed, not pertinent - SOCIAL HISTORY Smoking: cigarettes, greater than 1 pack/day Provider spent 3-5 mins advising pt. on dangers of tobacco.: Discussed manners to quit use, and f/u contacts for add'l counseling. Substance Use: denies Living Situation: family Physical Exam-General - PHYSICAL EXAM-ADULT Initial Vital Signs Reviewed: Yes - CONSTITUTIONAL General Appearance: moderate distress, thin - EYES Eyes: PERRL/EOMI, pink conjunctivae - HEAD, EARS, NOSE, MOUTH & THROAT HENMT: normocephalic/atraumatic, TMs normal. negative: moist mucous membranes (dry) - NECK Neck: full range of motion, supple - RESPIRATORY Respiratory: lungs clear, normal breath sounds - CARDIOVASCULAR Cardiovascular: regular rate, rhythm - GASTROINTESTINAL (ABDOMEN) Abdominal Exam: soft, tenderness (generalized) - MUSCULOSKELETAL Back Exam: normal inspection, no CVA tenderness, no vertebral tenderness Extremity: normal range of motion. negative: normal gait (weakness) Peripheral Pulses: radial (R): 2+, radial (L): 2+ - SKIN Integumentary: normal color, warm/dry, pallor - PSYCHIATRIC Psych/Mental Status: normal mood/affect, normal thought content, oriented x 3 Progress - PLAN OF CARE/RESULTS Progress/Plan/Lab Results: Vital Signs - 8 hr 04/30/19 20:12 Temperature 97.7 F Pulse Rate 100 H Respiratory Rate 20 Blood Pressure 108/52 O2 Sat by Pulse Oximetry 100 04/30/19 21:09 Influenza Screen - Final Nasopharyngeal Laboratory Results - last 24 hr 04/30/19 04/30/19 04/30/19 20:29 20:29 21:31 WBC 7.65 RBC 3.68 L Hgb 12.4 L Hct 37.6 L MCV 102.2 H MCH 33.7 H MCHC 33.0 RDW Std Deviation 12.7 Plt Count 100 L MPV 11.4 H Immature Gran % (Auto) 6.1 H Neut % (Auto) 52.6 Lymph % (Auto) 28.0 [place] % (Auto) 10.7 H Eos % (Auto) 1.0 Baso % (Auto) 1.6 H Immature Gran # (Auto) 0.47 H Neut # (Auto) 4.02 Lymph # (Auto) 2.14 [place] # (Auto) 0.82 H Eos # (Auto) 0.08 Baso # (Auto) 0.12 Sodium 143 Potassium 4.1 Chloride 104 Carbon Dioxide 18 L Anion Gap 21 BUN 34 H Creatinine 2.8 H Estimated GFR/1.73 m2 23 BUN/Creatinine Ratio 12 Glucose 120 H Calculated Osmolality 294 Calcium 10.7 H Total Bilirubin 0.55 AST 25 ALT 9 L Alkaline Phosphatase 69 Total Protein 6.5 Albumin 4.6 Globulin 1.9 Albumin/Globulin Ratio 2.4 Amylase 54 Lipase 53 Urine Source CLEAN CATCH Orders Category Date Time Status Saline Loc DIRECTED Care 04/30/19 20:15 Active NPO Diet 04/30/19 20:[address] ABDOMEN/PELVIS W/O CONTRAST [CT] Stat Exams 04/30/19 21:26 Ordered AMYLASE [CHEM] Stat Lab 04/30/19 20:29 Completed CBC WITH ELECTRONIC DIFF [HEME] Stat Lab 04/30/19 20:29 Completed COMPREHENSIVE METABOLIC PANEL [CHEM] Stat Lab 04/30/19 20:29 Completed Flu Swab [INFLUENZA SCREEN A/B] Stat Lab 04/30/19 21:09 Completed LIPASE [CHEM] Stat Lab 04/30/19 20:29 Completed URINALYSIS W/POSS RFLX CULT [URINALYSIS] Stat Lab 04/30/19 21:31 Results 0.9% Sodium Chloride Inj [Ns] 1,000 ml Med 04/30/19 21:27 Active IV 999 mls/hr Result Diagrams: 04/30/19 20:29 04/30/19 20:29 - CT/MRI 1 CT Study: Abdomen Impression: See EMR Report (FINDINGS: There is mild fibrotic change at both lung bases. The gallbladder is contracted. There is no pericholecystic inflammatory change. There is an incidental small cystic appearing lesion in the left hepatic lobe, stable. The liver is unremarkable, otherwise. The spleen, pancreas, and adrenal glands are unremarkable. There is stable left renal atrophy. There is a single nonobstructing intrarenal stone on the left. There are no ureteral stones and there is no hydronephrosis. There is a 5.7 mm stone in the lumen of the urinary bladder on the left is unknown how recent this was passed. Urinary bladder is unremarkable, otherwise. There is no evidence of focal bowel wall thickening or bowel obstruction. There is a sliding hiatal hernia is actually appears smaller than the previous study. The GI tract is essentially unremarkable, otherwise. There is no focal inflammatory change, free abdominal gas, or free fluid. There is extensive aortoiliac atherosclerotic calcification. There are numerous lytic lesions seen throughout the visualized skeleton that are similar to the previous study consistent with multiple myeloma. IMPRESSION: 1.Nonobstructing intrarenal stone on the left as well as a stone in the urinary bladder lumen. However, there is no evidence of acute obstructive uropathy. 2.Innumerable lytic lesions seen throughout the visualized skeleton consistent with known multiple myeloma. 3.Other incidental/nonacute findings detailed above.) - CONSULTS/PCP/HOSPITALIST Notification #1 *Consult/PCP/Hospitalist*: Dr Palomo Time Discussed: 22:19 Reason/Comments: acute renal failure, NVD Consult Disposition: Admit Departure - Departure Date of Disposition Decision: 04/30/19 Time of Disposition Decision: 22:19 DIAGNOSIS: Weakness, ARF (acute renal failure) Disposition: ADMITTED INPATIENT 09 Certified Medical Emergency: Emergent Condition: Critical Additional Instructions: ED Follow Up Instructions: You have been treated by a care provider in the Emergency Department. These instructions are being provided to you so you can have an understanding of how to care for yourself upon discharge. Upon discharge from the Emergency Department, you are responsible for making arrangements for follow-up care by a physician of your choice. Take all prescribed medications as directed. Return to the Emergency Department immediately for any new or worsening symptoms. You may call the Physician Referral phone number at [phone] to obtain a list of Physicians who are taking new patients. Referrals and Follow-Ups: Zee Cramer MD [Primary Care Provider] - - Critical Care Note This patient required my direct & personal management of CC.: No Attestation - Physician/ GLENNY Attestation Patient care was provided by Advanced Practice Provider:: Yes Advanced Practice Provider:: Abraham Felix Advanced Practice Provider documentation review:: The Mid-level provider documentation, treatment plan and medical decision making was reviewed by the physician who agrees with all treatment and medical decision making by the MLP. The physician spent face to face time with patient:: No Advanced Practice Provider documentation review:: Supervising physician onsite and consulted in the evaluation and care of this patient. The physician did not have a face to face encounter with the patient.
[2019-04-30 22:14] LABS: BILIRUBIN URINE NEGATIVE (NEGATIVE); BLOOD URINE NEGATIVE (NEGATIVE); COLOR YELLOW; GLUCOSE URINE NEGATIVE (NEGATIVE); KETONE URINE NEGATIVE (NEGATIVE); LEUKOCYTES URINE NEGATIVE (NEGATIVE); NITRITE URINE NEGATIVE (NEGATIVE); PROTEIN URINE 100 mg/dL (NEGATIVE); SP GRAVITY URINE 1.019; TURBIDITY URINE HAZY (CLEAR); UROBILINOGEN URINE NORMAL (NORMAL)
--- NOTE | 2019-04-30 22:16 | Diag Imaging Result Doc PS360 ---
EXAM: CT ABDOMEN/PELVIS W/O CONTRAST INDICATION: abd pain TECHNIQUE: This exam was performed using automated exposure control, adjustment of mA or kV according to patient size, and/or use of iterative reconstruction technique. COMPARISON: 08/29/2018 FINDINGS: There is mild fibrotic change at both lung bases. The gallbladder is contracted. There is no pericholecystic inflammatory change. There is an incidental small cystic appearing lesion in the left hepatic lobe, stable. The liver is unremarkable, otherwise. The spleen, pancreas, and adrenal glands are unremarkable. There is stable left renal atrophy. There is a single nonobstructing intrarenal stone on the left. There are no ureteral stones and there is no hydronephrosis. There is a 5.7 mm stone in the lumen of the urinary bladder on the left is unknown how recent this was passed. Urinary bladder is unremarkable, otherwise. There is no evidence of focal bowel wall thickening or bowel obstruction. There is a sliding hiatal hernia is actually appears smaller than the previous study. The GI tract is essentially unremarkable, otherwise. There is no focal inflammatory change, free abdominal gas, or free fluid. There is extensive aortoiliac atherosclerotic calcification. There are numerous lytic lesions seen throughout the visualized skeleton that are similar to the previous study consistent with multiple myeloma. IMPRESSION: 1.Nonobstructing intrarenal stone on the left as well as a stone in the urinary bladder lumen. However, there is no evidence of acute obstructive uropathy. 2.Innumerable lytic lesions seen throughout the visualized skeleton consistent with known multiple myeloma. 3.Other incidental/nonacute findings detailed above. Electronically signed by Sen Castanon 04/30/2019 10:13 PM
[2019-04-30 22:30] LABS: URINE CASTS WHITE CELL PRESENT; URINE CRYSTALS CA OXALATE PRESENT; URINE YEAST NONE SEEN
[2019-04-30 22:31] LABS: UR EPITHELIAL CELLS >10 /HPF (<10); URINE BACTERIA NEGATIVE /HPF; URINE RBC <10 /HPF (<10); URINE SMALL ROUND CELLS TRANS PRESENT; URINE WBC 20-40 /HPF (<10)
[2019-04-30] MEDS ORDERED: NORCO-7.5 PO PRN (22:42)
[2019-04-30] MEDS ORDERED: ZOFRAN IV PRN (22:45)
[2019-04-30] MEDS ORDERED: MORPHINE IV ONE (22:46)
[2019-04-30] MEDS ORDERED: SODIUM CHLORIDE 0.9% INJ ONE (22:47)
[2019-04-30] MEDS ORDERED: PHENERGAN IV ONE (22:47)
[2019-05-01] MEDS: NORCO-7.5 PO PRN ×4 (00:03→22:40)
[2019-05-01] MEDS ORDERED: ZOFRAN IV PRN (01:37)
--- NOTE | 2019-05-01 01:56 | HISTORY AND PHYSICAL ---
ADDENDUM: The patient came in with significant diarrhea and weakness. On his physical exam he does appear to be a little bit dehydrated. He came in with a creatinine of 2.8. Calcium was a little bit elevated. Concentrated urine. Plan will be to hydrate him and we will check urine protein, urine creatinine, renal ultrasound tomorrow. Anticipate discharge soon. cc: Thuan Palomo MD
[2019-05-01 04:13] LABS: CALCIUM 9.8 mg/dL (8.8-10.2); CREATININE 2.8 mg/dL (0.7-1.2); POTASSIUM 3.7 mmol/L (3.5-5.1)
[2019-05-01 04:15] LABS: UR CREAT RANDOM 162.6 mg/dL (14-26); UR PROT RANDOM 68.5 mg/dL
[2019-05-01] MEDS ORDERED: NS 500 ML IV ONE ×2 (06:20→07:52)
--- NOTE | 2019-05-01 06:24 | HISTORY AND PHYSICAL ---
PRIMARY CARE PROVIDER: Keerthi Cramer MD. CHIEF COMPLAINT: Diarrhea and abdominal pain. HISTORY OF PRESENT ILLNESS: This is an unfortunate 64-year-old male who has a past medical history of multiple myeloma, left jaw osteonecrosis, chronic pain associated with the multiple myeloma, and a hiatal hernia, who comes in after coming to the emergency room around a week ago with constipation. He was treated with magnesium sulfate, then his stools turned to diarrhea. He continued to have diarrhea and I believe he went to see his primary care provider, Dr. Cramer, Sunday. He was told that he was dehydrated and that he should come to the emergency room, however, he decided to wait for a couple more days to see if he got to feeling better. Now he reports he is very weak, he can barely stand. He has generalized abdominal pain. He has had multiple diarrhea stools. He states today is the first day that he has not had diarrhea. He is having nausea with no vomiting. His laboratory data was obtained in the emergency room. His BUN is 34 and his creatinine is 2.8. He is severely dehydrated with acute kidney injury. He will be admitted for further evaluation and treatment. PAST MEDICAL HISTORY: See HPI. PREVIOUS SURGICAL HISTORY: Denies. SOCIAL HISTORY: He is not , has no children. He smokes a pack a day. No alcohol. No illicit drugs. Lives alone. FAMILY HISTORY: Negative for diabetes, heart disease, or cancer in first-degree relatives. ALLERGIES: No known drug allergies. HOME MEDICATIONS: Fentanyl 25 mcg transdermal patch every 72 hours, Pease 7.5 one tablet every 4- 6, omeprazole 40 mg p.o. daily, Zofran 4 mg p.o. q.8-12 h. p.r.n. REVIEW OF SYSTEMS: A 14-point review of systems was conducted with the patient. Pertinent positives are listed above in the HPI. All other systems are reviewed and found to be negative. PHYSICAL EXAMINATION: VITAL SIGNS: Temperature 97.7, pulse 100, respirations 20, blood pressure 108/52, and oxygen saturation is 100% on room air. GENERAL: Mr. Agrawal is a chronically ill-appearing male slightly disheveled. He is in no acute distress. He is lying on the ER stretcher. He is alert and oriented x3. HEENT: The head is atraumatic an normocephalic. The pupils are equal, round, and reactive to light. Extraocular eye movement is intact. The sclerae are nonicteric. The conjunctivae are mildly pale. The oral mucosa is dry. NECK: Supple. No JVD. No thyromegaly. The trachea is midline. No cervical lymphadenopathy. CARDIAC: S1, S2 appreciated. No murmurs, gallops, or rubs. LUNGS: Clear to auscultation bilaterally. No rhonchi, wheezes, or rales. Symmetric rise and fall with respirations. ABDOMEN: Scaphoid, soft, nondistended, and nontender. Bowel sounds present in all four quadrants. Normoactive. No pulsatile masses. No organomegaly. EXTREMITIES: No cyanosis, clubbing or edema. 1+ pedal pulses bilaterally. GENITOURINARY: No bladder distention, otherwise deferred. NEUROLOGICAL: Alert and oriented x3. No focal motor deficits. Otherwise, nonfocal examination. MUSCULOSKELETAL: Grossly unremarkable. SKIN: Warm, dry, and intact. No acute lesions or rash. DIAGNOSTIC DATA: CT of the abdomen and pelvis, nonobstructing intrarenal stone on the left, as well as in the urinary bladder lumen. No evidence of obstructive uropathy. Enumerable lytic lesions throughout the visualized skeleton, consistent with known multiple myeloma. The GI tract is essentially unremarkable. LABORATORY DATA: White blood cell count 7.65, hemoglobin 12.4, hematocrit 37.6, platelet count 100,000. Sodium 143, potassium 4.1, chloride 104, carbon dioxide 18, BUN 34, creatinine 2.8, glucose 120. Urine unremarkable. ASSESSMENT: 1. Nausea and diarrhea with abdominal pain. 2. Acute kidney injury. 3. Fluid/volume depletion. 4. Multiple myeloma. 5. Chronic pain secondary to multiple myeloma. 6. Anemia of chronic disease. PLAN: Admit the patient to the medical floor. Will give 1 L bolus. Continue normal saline at 125 mL an hour. We will continue his home medications. Pease and fentanyl for pain control. We will give a one-time dose of morphine and Phenergan. We will continue Zofran as needed for nausea. Recheck chemistry panel tomorrow morning. This patient will be followed up on tomorrow by his primary care provider, Dr. Keerthi Cramer. Further recommendations based on the patient's clinical course. Dictated by ZACK Vernon for Thuan Palomo MD cc: ZACK Vernon MD Jagan Reddy, MD
[2019-05-01] MEDS: PRILOSEC PO SCH (08:03)
[2019-05-01] MEDS: NS 1,000 ML IV SCH ×2 (09:03→16:37)
[2019-05-02] MEDS: NS 1,000 ML IV SCH ×5 (00:59→20:48)
[2019-05-02] MEDS: NORCO-7.5 PO PRN ×5 (03:04→21:31)
[2019-05-02] MEDS ORDERED: NS 1,000 ML IV SCH (05:00)
[2019-05-02 07:51] LABS: BASO# 0.06 X1000 (0.0-0.2); BASO% 1.3 % (0.0-0.8); EOS# 0.05 X1000 (0.0-0.7); EOS% 1.1 % (0.0-10.0); HEMATOCRIT 30.5 % (42.0-52.0); HEMOGLOBIN 9.4 g/dL (14.0-18.0); IMM GRAN# 0.12 X1000 (0.0-0.04); IMM GRAN% 2.6 % (0.0-0.5); LYMPH# 1.71 X1000 (1.2-3.4); LYMPH% 37.7 % (20.5-51.1); MCH 33.2 PG (27-31); MCHC 30.8 g/dL (33-37); MCV 107.8 FL (81-99); MONO# 0.37 X1000 (0.11-0.59); MONO% 8.2 % (1.7-9.3); MPV 11.2 FL (7.4-10.4); NEUT# 2.22 X1000 (1.4-6.5); NEUT% 49.1 % (42.2-75.2); PLT 54 X1000 (130-400); RBC 2.83 XMIL (4.7-6.1); RDW 12.6 % (11.5-14.5); WBC 4.53 X1000 (4.8-10.8)
[2019-05-02] MEDS: PRILOSEC PO SCH ×2 (08:38→09:17)
[2019-05-02] MEDS: SODIUM CHLORIDE 0.9% INJ SCH (09:17)
[2019-05-02] MEDS: PROTONIX IV SCH (09:17)
[2019-05-02 09:38] LABS: BANDS 6 % (0-1); LYMPHS 36 % (21-51); MONO 4 % (1-9); SEGS 52 % (42-75)
[2019-05-02] MEDS: LOVENOX SUBQ SCH (20:48)
--- NOTE | 2019-05-02 21:29 | PROGRESS NOTE ---
DATE: 05/02/2019 SUBJECTIVE: Patient anxious to go home. He continues to have low blood pressure and he is on IV fluids. PHYSICAL EXAMINATION: Temperature is 97 degrees, pulse is 82, blood pressure 94/56.HEENT: Within normal limits. Dry mucous membranes. Poor dentition. Neck: Supple. Chest: Clear. Heart: Sounds are regular. Belly is soft, nontender. No obvious deficits. INVESTIGATIONS: CBC: White cell count 4.5, hematocrit 30, platelets 54,000 SMA 7 is pending. PAST MEDICAL HISTORY: Reviewed. PAST SURGICAL HISTORY: Reviewed. MEDICINES: Reviewed. ALLERGIES: Not known. INVESTIGATIONS: CT scan of the abdomen and pelvis, nonobstructing renal stone on the left side as well as stone in the urinary bladder. No evidence of acute obstructive uropathy and multiple myeloma changes noted. ASSESSMENT AND PLAN: 1. Hypotension due to dehydration. Continue IV fluids. 2. Acute kidney injury due to dehydration. 3. 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 Stone. 4. 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 5. Chronic pain with fentanyl patch and [place]. 6. Constipation, resolved. 7. Kidney stone on the left side, stable. 8. DVT prophylaxis with Lovenox. 9. GI prophylaxis with IV Protonix. 10. Repeat the labs in the morning. LEVEL OF DOCUMENTATION: 35 minutes. cc: Lucio Cramer MD MTDD
[2019-05-03] MEDS: NS 1,000 ML IV SCH ×5 (00:07→17:43)
[2019-05-03] MEDS: NORCO-7.5 PO PRN ×5 (02:02→20:34)
[2019-05-03 07:57] LABS: BASO# 0.04 X1000 (0.0-0.2); EOS# 0.04 X1000 (0.0-0.7); HEMATOCRIT 27.7 % (42.0-52.0); HEMOGLOBIN 8.8 g/dL (14.0-18.0); IMM GRAN% 2.6 % (0.0-0.5); LYMPH# 1.28 X1000 (1.2-3.4); LYMPH% 33.1 % (20.5-51.1); MCH 34.4 PG (27-31); MCHC 31.8 g/dL (33-37); MCV 108.2 FL (81-99); MONO# 0.35 X1000 (0.11-0.59); MPV 11.3 FL (7.4-10.4); NEUT# 2.06 X1000 (1.4-6.5); NEUT% 53.3 % (42.2-75.2); PLT 44 X1000 (130-400); RBC 2.56 XMIL (4.7-6.1); RDW 12.7 % (11.5-14.5); WBC 3.87 X1000 (4.8-10.8)
[2019-05-03 08:19] LABS: ESTIMATED GFR > 60
[2019-05-03 08:27] LABS: AGAP 14; BUN 15 mg/dL (8-22); CALCIUM 8.1 mg/dL (8.8-10.2); CHLORIDE 115 mmol/L (98-107); COSMO 286; CREATININE 1.1 mg/dL (0.7-1.2); GLUCOSE 72 mg/dL (70-104); MAGNESIUM 1.3 mg/dL (1.5-2.7); PHOSPHORUS 2.8 mg/dL (2.7-4.5); POTASSIUM 3.9 mmol/L (3.5-5.1); SODIUM 144 mmol/L (136-145); TCO2 15 mmol/L (25-35)
[2019-05-03] MEDS ORDERED: MAGNESIUM SULFATE 2 GM/S.W.I. 2 GM/50 ML IVPB IV ONE ×2 (08:52→13:45)
[2019-05-03] MEDS: PROTONIX IV SCH (09:34)
[2019-05-03] MEDS: SODIUM CHLORIDE 0.9% INJ SCH (09:34)
[2019-05-03] MEDS: LOVENOX SUBQ SCH (20:13)
--- NOTE | 2019-05-03 21:03 | PROGRESS NOTE ---
DATE: 05/03/2019 SUBJECTIVE: The patient is doing better, anxious to go home, and he is eating well. His hemodynamics are getting stable. OBJECTIVE: Temperature is 97 degrees, pulse 87, blood pressure 120/50.HEENT: Within normal limits. Neck: Supple. Chest: Clear. Heart sounds are regular. Belly is soft, nontender. No obvious deficits. INVESTIGATIONS: CBC: White cell count 3.8, hematocrit 27, platelet count 44,000. SMA 7, creatinine 1.1, magnesium is 1.3. ASSESSMENT AND PLAN: 1. Acute kidney injury due to hypotension due to dehydration. Improving. Cut down the fluids to 80 mL/hour. Advance the diet. 2. Deep vein thrombosis and gastrointestinal prophylaxis. As per order sheet. 3. Chronic pain. On fentanyl patch and hydrocodone. 4. History of kidney stones. Stable. 5. Hypomagnesemia. Replace the magnesium. 6. 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 On amoxicillin, off due to diarrhea. Also, chemotherapy on hold under the care of Dr. Stone. LEVEL OF DOCUMENTATION: 25 minutes. cc: Lucio Cramer MD
[2019-05-04] MEDS: NORCO-7.5 PO PRN ×4 (03:02→21:13)
[2019-05-04 07:30] LABS: BASO# 0.04 X1000 (0.0-0.2); BASO% 1.1 % (0.0-0.8); EOS# 0.02 X1000 (0.0-0.7); EOS% 0.5 % (0.0-10.0); HEMATOCRIT 23.9 % (42.0-52.0); HEMOGLOBIN 7.6 g/dL (14.0-18.0); IMM GRAN# 0.15 X1000 (0.0-0.04); LYMPH# 1.02 X1000 (1.2-3.4); MCH 33.3 PG (27-31); MCHC 31.8 g/dL (33-37); MCV 104.8 FL (81-99); MONO# 0.39 X1000 (0.11-0.59); MONO% 10.3 % (1.7-9.3); MPV 11.3 FL (7.4-10.4); NEUT# 2.16 X1000 (1.4-6.5); NEUT% 57.1 % (42.2-75.2); PLT 51 X1000 (130-400); RBC 2.28 XMIL (4.7-6.1); RDW 12.4 % (11.5-14.5); WBC 3.78 X1000 (4.8-10.8)
[2019-05-04 07:59] LABS: AGAP 12; BUN 9 mg/dL (8-22); CALCIUM 8.3 mg/dL (8.8-10.2); CHLORIDE 115 mmol/L (98-107); COSMO 287; CREATININE 0.9 mg/dL (0.7-1.2); ESTIMATED GFR > 60; GLUCOSE 92 mg/dL (70-104); POTASSIUM 3.2 mmol/L (3.5-5.1); SODIUM 145 mmol/L (136-145); TCO2 18 mmol/L (25-35)
[2019-05-04] MEDS: SODIUM CHLORIDE 0.9% INJ SCH (08:37)
[2019-05-04] MEDS: NS 1,000 ML IV SCH (08:37)
[2019-05-04] MEDS: PROTONIX IV SCH (08:37)
[2019-05-04] MEDS: POTASSIUM CHLORIDE 20 MEQ/SWI 20 MEQ/100 ML IVPB IV SCH ×2 (12:07→15:09)
--- NOTE | 2019-05-04 16:17 | PROGRESS NOTE ---
DATE: 05/04/2019 SUBJECTIVE: The patient is hemodynamically stable, walking, and tolerating diet very well. PHYSICAL EXAMINATION: Vital Signs: Temperature is 97 degrees, pulse is 85, blood pressure 123/51. Slightly pale. Chest: Clear. Heart: Sounds are regular. Abdomen: Belly is soft, nontender. Good bowel sounds. Neurologic: No obvious deficits. INVESTIGATIONS: CBC: White cell count 3.7, hematocrit 23, platelets 51,000, SMA 7, potassium 3.2, sodium 145, BUN 9, creatinine 0.9, glucose 8.3, magnesium 1.3. ASSESSMENT AND PLAN: 1. Dehydration and azotemia due to hypotension, improving. 2. Blood pressure is stable. Discontinue IV fluids. 3. Check orthostatics. 4. Pancytopenia with underlying myeloma. Consult Dr. Stone. 5. Left jaw osteomyelitis, stable. 6. Chronic pain on fentanyl patches and [place]. 7. Deep venous thrombosis prophylaxis with Lovenox. 8. We will check the labs in the morning as well as orthostatic blood pressure, and if he is stable based on that, further recommendations will be followed. LEVEL OF DOCUMENTATION: 25 minutes. cc: Lucio Cramer MD
[2019-05-04] MEDS: LOVENOX SUBQ SCH (21:13)
[2019-05-05] MEDS: NORCO-7.5 PO PRN ×3 (07:28→20:51)
[2019-05-05 08:04] LABS: BASO% 2.3 % (0.0-0.8); EOS# 0.05 X1000 (0.0-0.7); EOS% 1.2 % (0.0-10.0); HEMATOCRIT 24.5 % (42.0-52.0); HEMOGLOBIN 7.7 g/dL (14.0-18.0); IMM GRAN# 0.42 X1000 (0.0-0.04); IMM GRAN% 9.7 % (0.0-0.5); LYMPH# 1.05 X1000 (1.2-3.4); LYMPH% 24.4 % (20.5-51.1); MCH 33.2 PG (27-31); MCHC 31.4 g/dL (33-37); MCV 105.6 FL (81-99); MONO% 13.9 % (1.7-9.3); MPV 11.2 FL (7.4-10.4); NEUT# 2.09 X1000 (1.4-6.5); NEUT% 48.5 % (42.2-75.2); PLT 49 X1000 (130-400); RBC 2.32 XMIL (4.7-6.1); WBC 4.31 X1000 (4.8-10.8)
[2019-05-05 08:10] LABS: AGAP 15; BUN 6 mg/dL (8-22); CALCIUM 8.4 mg/dL (8.8-10.2); CHLORIDE 114 mmol/L (98-107); COSMO 290; CREATININE 0.9 mg/dL (0.7-1.2); ESTIMATED GFR > 60; GLUCOSE 93 mg/dL (70-104); POTASSIUM 3.6 mmol/L (3.5-5.1); SODIUM 147 mmol/L (136-145); TCO2 18 mmol/L (25-35)
[2019-05-05] MEDS ORDERED: NS 500 ML IV ONE (08:15)
[2019-05-05 08:26] LABS: BANDS 10 % (0-1); LYMPHS 24 % (21-51); MONO 2 % (1-9); SEGS 48 % (42-75)
[2019-05-05] MEDS: PROTONIX IV SCH (08:58)
[2019-05-05] MEDS: SODIUM CHLORIDE 0.9% INJ SCH (08:58)
[2019-05-05] MEDS: DURAGESIC 25 MICROGM/HR PATCH TD SCH (08:58)
[2019-05-05] MEDS: LOVENOX SUBQ SCH (20:51)
--- NOTE | 2019-05-05 21:55 | PROGRESS NOTE ---
DATE: 05/05/2019 SUBJECTIVE: The patient is feeling weak and blood pressure and hemodynamics are getting stable. OBJECTIVE: General: He is very pale, dry. Chest: Clear. Heart: Heart sounds are regular. Abdomen: Belly is soft, nontender. Good bowel sounds. Neurologic: No neurological deficits. INVESTIGATIONS: CBC: White cell count 4.3, hematocrit 24.5, platelets 49,000. SMA 7 is normal. ASSESSMENT AND PLAN: 1. Acute kidney injury, resolving. 2. Hypotension, better. 3. Nonsecretory myeloma. Consult with Dr. Stone. 4. Pancytopenia. We will transfuse a unit of blood and will check the labs in the morning and will follow up. LEVEL OF DOCUMENTATION: 25 minutes. cc: Lucio Cramer MD
[2019-05-06] MEDS: NORCO-7.5 PO PRN ×4 (06:57→20:32)
[2019-05-06 08:06] LABS: IRON SATURATION 30 %; TIBC 149 ug/dL; TOTAL IRON 45 ug/dL (53-167); UNBOUND IRON 104 ug/dL (112-346)
[2019-05-06 08:16] LABS: AGAP 16; BUN 6 mg/dL (8-22); CALCIUM 8.7 mg/dL (8.8-10.2); CHLORIDE 113 mmol/L (98-107); COSMO 289; CREATININE 0.8 mg/dL (0.7-1.2); ESTIMATED GFR > 60; GLUCOSE 85 mg/dL (70-104); HEMATOCRIT 26.9 % (42.0-52.0); HEMOGLOBIN 8.6 g/dL (14.0-18.0); MAGNESIUM 1.5 mg/dL (1.5-2.7); MCH 32.2 PG (27-31); MCV 100.7 FL (81-99); MPV 10.8 FL (7.4-10.4); PHOSPHORUS 2.2 mg/dL (2.7-4.5); PLT 40 X1000 (130-400); POTASSIUM 3.4 mmol/L (3.5-5.1); RBC 2.67 XMIL (4.7-6.1); RDW 16.5 % (11.5-14.5); SODIUM 147 mmol/L (136-145); TCO2 18 mmol/L (25-35)
[2019-05-06 08:17] LABS: BASO# 0.26 X1000 (0.0-0.2); BASO% 6.3 % (0.0-0.8); EOS# 0.04 X1000 (0.0-0.7); IMM GRAN# 0.49 X1000 (0.0-0.04); LYMPH# 0.99 X1000 (1.2-3.4); LYMPH% 24.1 % (20.5-51.1); MONO# 0.73 X1000 (0.11-0.59); MONO% 17.8 % (1.7-9.3); NEUT# 1.59 X1000 (1.4-6.5); NEUT% 38.8 % (42.2-75.2)
[2019-05-06] MEDS ORDERED: POTASSIUM PHOSPHATE 30 MEQ in NS 250 ML IV ONE (08:33)
[2019-05-06] MEDS ORDERED: NS 500 ML IV ONE (08:34)
[2019-05-06] MEDS: SODIUM CHLORIDE 0.9% INJ SCH (09:21)
[2019-05-06] MEDS: PROTONIX IV SCH (09:21)
--- NOTE | 2019-05-06 15:00 | HEMO/ONC CONSULTATION ---
DATE: 05/06/2019 REASON FOR CONSULTATION: The patient is a known patient of ours for the treatment of nonsecretory multiple myeloma. HISTORY OF PRESENT ILLNESS: The patient was admitted on 04/30/2019 for a history of nausea, vomiting, and diarrhea, which caused significant dehydration. He has had a long history of nonsecretory multiple myeloma, as well as left osteonecrosis of the jaw. The patient stated that the week prior to admission, he was suffering with constipation. He was given magnesium sulfate, and his stools turned to diarrhea. He continued to have diarrhea until he was admitted for dehydration. When he came in, he was very weak, he could barely stand, he had generalized abdominal pain, he also had nausea and vomiting. He had electrolyte repletion. He had an acute kidney injury, and has been slowly improving. The patient is currently under treatment for nonsecretory multiple myeloma. However, he is regularly noncompliant. The patient was started on Revlimid and Kyprolis on 11/11/2018. Therapy was again put on hold for osteonecrosis of the jaw infection. We have attempted to restart the patient's therapy this month. He came in for an appointment on 04/15/2019 and has not returned back to begin therapy. The patient's last dose of Kyprolis was 11/27/2018. His Revlimid dose should have been around that time as well. The patient's last hemoglobin and hematocrit in the office on 04/15/2019 were 13.1 and 38.2. The patient was confused this morning and could not discuss his health status with me PAST MEDICAL HISTORY: Noted in HPI. PAST SURGICAL HISTORY: The patient denies. SOCIAL HISTORY: Smokes a pack a day. No alcohol. No illicit drugs. ALLERGIES: No known drug allergies. HOME MEDICATIONS: Fentanyl patch, omeprazole, [place], Zofran, Revlimid. REVIEW OF SYSTEMS: Unable to obtain this morning. PHYSICAL EXAMINATION: Vital Signs: Temperature 98.1 degrees, pulse rate 84, respiratory rate 20, blood pressure 109/39, O2 saturation 97% on room air. He is in 0/10 pain. General: This is a chronically ill-appearing gentleman. He is unkempt. He is not answering questions appropriately. He has urinated in the bed and on the floor. HEENT: Sclerae is anicteric. PERRLA. Oral mucosa is dry. Cardiovascular: Normal S1, S2. Heart rate and rhythm is regular. Lungs: Clear to auscultation. Abdomen: Soft, nondistended, nontender. Extremities: Trace pedal edema noted. Neurological: Alert and oriented x2. The patient could tell me who he was and which hospital he was in. He could not tell me who I was, what month it was, or why he was in the hospital. LABORATORY DATA: WBCs 4.10, hemoglobin 8.6, hematocrit 26.9, platelet count 40,000. ANC 1.59. Sodium 147, potassium 3.4, creatinine 0.8, calcium 8.7. Phosphorus 2.2, magnesium 1.5. Iron percent sat 30%, iron 45, B12 and folate adequate. ASSESSMENT AND PLAN: . 1. Pancytopenia: Support with transfusions as necessary. We are continuing to monitor his labs. 2. DVT prophylaxis: continue patient on lovenox SQ. Assist patient out of be to the chair. 3. Multiple myeloma. Aware and monitoring. 4. Nutrition and deconditioning: Provide the patient protein shakes. Have PT evaluate. Dictated by ZACK Duong for Zak Stone MD As above. Worsening cytopenias likely due to myeloma. Discussed with Dr. Cramer. Will start him back on Kyprolis after discharge. Zak Stone MD cc: MD Lucio Guerrier MD [facility]ITALK[facility]
[2019-05-06] MEDS: LOVENOX SUBQ SCH (20:32)
--- NOTE | 2019-05-06 22:17 | PROGRESS NOTE ---
DATE: 05/06/2019 SUBJECTIVE: The patient is still weak and did receive a unit of blood. Now, he is a running fever 100.9, tachycardic. OBJECTIVE: vital signs: Stable, 90% on room air. HEENT: Within normal limits. Neck: Supple. No lymphadenopathy. Chest: Clear. Heart sounds are regular. Belly is soft, nontender. No obvious deficits. INVESTIGATIONS: CBC: White cell count 4, hematocrit 26, platelets 40,000. Sodium 147, potassium 3.4. LFTs were normal. ASSESSMENT AND PLAN: 1. Pancytopenia with myeloma. Off chemotherapy due to left jaw osteomyelitis. Consult with Dr. Stone. 2. Transfusion. Hematologically, keep hematocrit 30. 3. Platelets were down. Discontinue Lovenox. 4. Azotemia. Better. 5. Hypokalemia. Replace the potassium and will follow up. LEVEL OF DOCUMENTATION: 25 minutes. cc: Lucio Cramer MD
[2019-05-07] MEDS: NORCO-7.5 PO PRN ×5 (01:53→22:01)
[2019-05-07 07:25] LABS: HEMATOCRIT 29.8 % (42.0-52.0); HEMOGLOBIN 9.6 g/dL (14.0-18.0); LYMPH# 1.48 X1000 (1.2-3.4); LYMPH% 29.8 % (20.5-51.1); MCH 32.3 PG (27-31); MCHC 32.2 g/dL (33-37); MCV 100.3 FL (81-99); MONO% 16.1 % (1.7-9.3); MPV 11.1 FL (7.4-10.4); RBC 2.97 XMIL (4.7-6.1); WBC 4.97 X1000 (4.8-10.8)
[2019-05-07 07:26] LABS: PLT 28 X1000 (130-400)
[2019-05-07 07:27] LABS: AGAP 11; BUN 7 mg/dL (8-22); CALCIUM 8.4 mg/dL (8.8-10.2); CHLORIDE 109 mmol/L (98-107); COSMO 284; CREATININE 0.9 mg/dL (0.7-1.2); ESTIMATED GFR > 60; GLUCOSE 81 mg/dL (70-104); POTASSIUM 3.7 mmol/L (3.5-5.1); SODIUM 144 mmol/L (136-145); TCO2 24 mmol/L (25-35)
[2019-05-07 08:12] LABS: ATYPICAL LYMPH 8 %; BANDS 12 % (0-1); LYMPHS 30 % (21-51); MONO 2 % (1-9); NRBC 1 % (0-0); SEGS 36 % (42-75); UNIDENTIFIED CELLS 4 %
[2019-05-07] MEDS: SODIUM CHLORIDE 0.9% INJ SCH (08:18)
[2019-05-07] MEDS: PROTONIX IV SCH (08:18)
--- NOTE | 2019-05-07 22:28 | PROGRESS NOTE ---
DATE: 05/07/2019 SUBJECTIVE: The patient did receive 2 units of packed RBC. Platelets were down off Lovenox and I spoke to Dr. Stone. He is planning to do chemo as an outpatient once he is stable. PHYSICAL EXAMINATION: Vital signs stable and no significant changes noted. ASSESSMENT AND PLAN: 1. Pancytopenia. Hematological support. 2. Thrombocytopenia. Discontinue Lovenox. 3. Check the orthostatic blood pressure. Advance diet and will check the labs in the morning. If he is stable, will discharge in the morning. LEVEL OF DOCUMENTATION: 25 minutes. cc: Lucio Cramer MD
[2019-05-08] MEDS: NORCO-7.5 PO PRN ×5 (03:21→21:53)
[2019-05-08 07:42] LABS: BASO# 0.23 X1000 (0.0-0.2); HEMATOCRIT 31.8 % (42.0-52.0); HEMOGLOBIN 10.3 g/dL (14.0-18.0); LYMPH% 27.6 % (20.5-51.1); MCH 32.4 PG (27-31); MCHC 32.4 g/dL (33-37); MONO# 0.86 X1000 (0.11-0.59); MONO% 14.8 % (1.7-9.3); MPV 11.1 FL (7.4-10.4); RBC 3.18 XMIL (4.7-6.1); RDW 16.8 % (11.5-14.5)
[2019-05-08 08:21] LABS: AGAP 13; BUN 9 mg/dL (8-22); CALCIUM 8.5 mg/dL (8.8-10.2); CHLORIDE 109 mmol/L (98-107); COSMO 285; CREATININE 0.7 mg/dL (0.7-1.2); ESTIMATED GFR > 60; GLUCOSE 88 mg/dL (70-104); POTASSIUM 3.1 mmol/L (3.5-5.1); SODIUM 144 mmol/L (136-145); TCO2 22 mmol/L (25-35)
[2019-05-08 08:25] LABS: BANDS 18 % (0-1); LYMPHS 24 % (21-51); MONO 7 % (1-9); SEGS 45 % (42-75)
[2019-05-08] MEDS ORDERED: KLOR-CON PO ONE (08:30)
[2019-05-08 08:34] LABS: PLT 26 X1000 (130-400)
[2019-05-08] MEDS: PROTONIX IV SCH (08:39)
[2019-05-08] MEDS: SODIUM CHLORIDE 0.9% INJ SCH (08:39)
[2019-05-08] MEDS: DURAGESIC 25 MICROGM/HR PATCH TD SCH (10:00)
--- NOTE | 2019-05-09 00:14 | PROGRESS NOTE ---
DATE: 05/08/2019 SUBJECTIVE: The patient is a little better and the patient is supposed to be on antibiotics chronically for osteomyelitis. REVIEW OF SYSTEMS: None reported. OBJECTIVE: On exam, temperature is 97 degrees. Vitals are stable. On physical exam, no change. INVESTIGATIONS: White cell count 5.8, hematocrit 31, platelets 206,000, sodium 144, potassium 3.1, chloride 109, BUN 9, creatinine 0.7. ASSESSMENT AND PLAN: 1. Thrombocytopenia off Lovenox. 2. Nonsecretory myeloma. Hold on chemotherapy. 3. Azotemia, hypotension, better. The patient is going to find out which antibiotic Dr. Martin placed on maintenance for the osteomyelitis. 4. Continue present treatment for pain control and will check the CBC in the morning and, if stable, will follow up with Dr. Stone next week in the office. LEVEL OF DOCUMENTATION: 25 minutes. cc: Lucio Cramer MD
[2019-05-09] MEDS: NORCO-7.5 PO PRN ×2 (02:44→08:08)
[2019-05-09 07:47] VITALS: BP 121/56
[2019-05-09 08:09] LABS: HEMATOCRIT 32.6 % (42.0-52.0); HEMOGLOBIN 10.9 g/dL (14.0-18.0); MCH 33.9 PG (27-31); MCHC 33.4 g/dL (33-37); MCV 101.2 FL (81-99); MPV 13.4 FL (7.4-10.4); RBC 3.22 XMIL (4.7-6.1); RDW 16.8 % (11.5-14.5); WBC 7.25 X1000 (4.8-10.8)
[2019-05-09] MEDS: SODIUM CHLORIDE 0.9% INJ SCH (08:11)
[2019-05-09] MEDS: PROTONIX IV SCH (08:11)
[2019-05-09] MEDS: PREVNAR 13 IM ONE ×2 (09:52→10:05)
--- NOTE | 2019-05-11 14:38 | DISCHARGE SUMMARY ---
ADMISSION DATE: 05/01/2019 DISCHARGE DATE: 05/09/2019 DISCHARGING DIAGNOSIS: Near syncope due to dehydration and orthostatic hypotension. SECONDARY DIAGNOSES: 1. Nonsecretory multiple myeloma. 2. Anemia due to chronic disease. 3. Thrombocytopenia due to multiple myeloma. 4. Left mandible osteomyelitis, on lifelong antibiotics. 5. Nonobstructive intrarenal stone on the left side. 6. Chronic obstructive pulmonary disease. 7. Hiatal hernia with acid reflux disease. CONSULTS: Dr. Stone. PROCEDURES: Transfusion of 2 units of packed RBC. BRIEF HISTORY: A 64-year-old, white gentleman with diagnosis of nonsecretory multiple myeloma. Chemotherapy was on hold due to left jaw osteomyelitis, and getting better currently on antibiotics lifelong with cefdinir versus Augmentin per Dr. Martin. Also going to the chronic pain clinics with Dr. Briones, and currently on hold for chemotherapy. Basically admitted to the hospital with dizziness, near syncope, and dehydration. He was very orthostatic. BUN and creatinine were high. The patient has complaints of diarrhea that is presumed to be due to Augmentin. Also, abdominal pain. CT scan showed possible kidney stones. He passed the stone in the urinary bladder. During this hospital course, he was given IV fluids, follow up hydration. His renal function test came back normal. Hemodynamics were stable. However, he was exhibiting pancytopenia, and platelet counts were down, and Lovenox was stopped. He was given [address] Dr[address] Stone was consulted, and he is planning to do outpatient chemotherapy since the disease is slowly advancing. At the time of discharge, the patient is stable. LABORATORY DATA: White cell count 7.2, hematocrit 32, platelets 30,000. Sodium 144, potassium 3.1, chloride 101, BUN 9, creatinine 0.7, calcium 8.5. Folate levels were normal. Ferritin and B12 levels were normal. RADIOLOGY PROCEDURES: CT scan of the abdomen and pelvis: Nonobstructing intrarenal stone in the left, multiple lytic lesions consistent with secretory myeloma. Chest x-ray: Mild COPD changes, and port on the right side. DISCHARGE INSTRUCTIONS: 1. Pneumococcal vaccine 13 was given on 05/09/2019. 2. Calcitonin nasal spray 1 spray in each nostril daily. 3. Antibiotics. Will hold the Augmentin since it is causing diarrhea. 4. Cefdinir 300 mg daily, fentanyl patch 12.5 mcg daily every 7 to 10 days, [place] 7.5 every 6 hours as needed, Prilosec 40 mg daily, Zofran as needed for nausea. 5. Follow up with Dr. Stone for maintenance treatment for the multiple myeloma. cc: MD Lucio Mtz MD
== END 2019-05-09 10:33 | disposition home health service (06) | DRG 683 ==
LOC: SUPCPDRO → ED 20:06 → SUATTDRO 05-01 02:35 → EDIPHOLD 05-01 02:35 → 4N 05-01 06:31
PROVIDERS: ADMIT Internal Medicine; ATTEND Internal Medicine

== ENCOUNTER 2019-05-14 09:59 | Inpatient (IN) ==
[2019-05-14] MEDS ORDERED: ZOSYN 4.5 GM in NS 100 ML IV ONE (10:07)
[2019-05-14] MEDS ORDERED: NS 1,000 ML IV ONE ×4 (10:07→21:28)
[2019-05-14 10:26] LABS: ALLEN TEST YES; BE 0.2 mmoll (-3.0-3.0); BLOOD TYPE ARTERIAL; HCO3-(ACT) 25.1 mmoll (20.0-26.0); METHB 1.5 % (0.0-1.5); O2(CT) 15.2 mL/dL (15.0-23.0); O2HB 96.6 % (95.0-99.0); PCO2(98.6) 23 mmHg (35-45); PO2(98.6) 121 mmHg (60-100); SAMPLE BLOOD; SAO2 99.2 % (95.0-100.0)
[2019-05-14 10:27] LABS: MODALITY CANNULA; pH(98.6) 7.57 (7.35-7.45)
[2019-05-14] MEDS ORDERED: OFIRMEV 1000 MG/ISOTONIC SOLN 1,000 MG/100 ML BOTTLE IV ONE (10:30)
--- NOTE | 2019-05-14 10:39 | Diag Imaging Result Doc PS360 ---
EXAM: CHEST-1 VIEW 05/14/2019 HISTORY: lethargy TECHNIQUE: AP upright portable at 1026 COMMENT: Multiple old rib fractures are present on the left. The heart size and pulmonary vascularity are within normal limits. There is a Port-A-Cath on the right with its tip in the right atrium. Overall the appearance of the chest has not changed significantly since 01/16/2019. IMPRESSION: Stable chest. Electronically signed by Paxton Falk 05/14/2019 10:37 AM
--- NOTE | 2019-05-14 11:05 | Diag Imaging Result Doc PS360 ---
CT HEAD/C-SPINE W/O CONTRAST - 05/14/2019 INDICATION: head injury/pain COMPARISON: 07/29/2018 FINDINGS: Head CT: The ventricles and sulci are normal in size and contour. No intracranial mass or hemorrhage. The skull is intact. The sinuses, mastoids, and middle ears are clear. Cervical spine: There are numerous scattered small bony lucencies throughout the spine. No fracture or subluxation. No central canal stenosis. Soft tissues are clear. There appears to be a right chest port. IMPRESSION: 1. No acute injury to the head. 2. Numerous cystic bony lucencies throughout the spine. Compatible with multiple myeloma. This exam was performed using automated exposure control, adjustment of mA or kV according to patient size, and/or use of iterative reconstruction technique Electronically signed by Jose Quezada 05/14/2019 11:03 AM
[2019-05-14 12:00] LABS: INR 1.08; PROTIME 14.1 Seconds (11.0-16.0)
[2019-05-14 12:01] LABS: PTT 38.9 Seconds (22.3-41.8)
[2019-05-14 12:08] LABS: BASO# 0.09 X1000 (0.0-0.2); BASO% 2.9 % (0.0-0.8); HEMATOCRIT 32.4 % (42.0-52.0); HEMOGLOBIN 10.3 g/dL (14.0-18.0); IMM GRAN# 0.27 X1000 (0.0-0.04); IMM GRAN% 8.8 % (0.0-0.5); LYMPH# 0.67 X1000 (1.2-3.4); LYMPH% 21.8 % (20.5-51.1); MCH 32.1 PG (27-31); MCHC 31.8 g/dL (33-37); MCV 100.9 FL (81-99); MONO# 0.37 X1000 (0.11-0.59); MPV 11.6 FL (7.4-10.4); NEUT# 1.68 X1000 (1.4-6.5); NEUT% 54.5 % (42.2-75.2); PLT 32 X1000 (130-400); RBC 3.21 XMIL (4.7-6.1); RDW 15.8 % (11.5-14.5); WBC 3.08 X1000 (4.8-10.8)
[2019-05-14 12:19] LABS: BANDS 18 % (0-1); LYMPHS 28 % (21-51); MONO 6 % (1-9); SEGS 44 % (42-75)
--- NOTE | 2019-05-14 12:27 | EKG Report ---
Test Performed on : 05/14/2019 12:02:38 PM Test Reason : SEPSIS Blood Pressure : / mmHG Vent. Rate : 095 BPM Atrial Rate : 095 BPM P-R Int : 106 ms QRS Dur : 078 ms QT Int : 378 ms P-R-T Axes : -04 -54 -49 degrees QTc Int : 475 ms Sinus rhythm. with short [place] Left axis deviation Nonspecific ST abnormality Abnormal ECG When compared with ECG of 19-FEB-2016 22:27, QRS axis shifted left Unconfirmed Result
[2019-05-14 12:35] LABS: AGAP 17; ALB/GLOB RATIO 1.5; ALBUMIN 3.4 g/dL (3.5-5.0); ALKALINE PHOSPHATASE 133 U/L (32-122); BUN 17 mg/dL (8-22); CALCIUM 8.8 mg/dL (8.8-10.2); CHLORIDE 108 mmol/L (98-107); CK PROFILE 200 U/L (24-204); COSMO 293; CREATININE 0.9 mg/dL (0.7-1.2); ESTIMATED GFR > 60; GLUCOSE 117 mg/dL (70-104); GOT 88 U/L (10-34); GPT 35 U/L (10-44); MAGNESIUM 2.2 mg/dL (1.5-2.7); POTASSIUM 3.1 mmol/L (3.5-5.1); SODIUM 146 mmol/L (136-145); TCO2 21 mmol/L (25-35); TOTAL BILIRUBIN 1.05 mg/dL (0.20-1.00); TOTAL PROTEIN 5.7 g/dL (6.3-8.3)
[2019-05-14] MEDS ORDERED: VANCOMYCIN 1 GM/NS 1 GM/250 ML IVPB IV ONE (12:59)
[2019-05-14 13:02] LABS: BILIRUBIN URINE NEGATIVE (NEGATIVE); BLOOD URINE MODERATE (NEGATIVE); COLOR YELLOW; GLUCOSE URINE NEGATIVE (NEGATIVE); KETONE URINE 20 mg/dL (NEGATIVE); LEUKOCYTES URINE NEGATIVE (NEGATIVE); NITRITE URINE NEGATIVE (NEGATIVE); PH URINE 6.5; PROTEIN URINE 200 mg/dL (NEGATIVE); SP GRAVITY URINE 1.022; TURBIDITY URINE CLEAR (CLEAR); URINE SOURCE CATH; UROBILINOGEN URINE 2 mg/dL (NORMAL)
[2019-05-14 13:04] LABS: UR EPITHELIAL CELLS <10 /HPF (<10); URINE BACTERIA NEGATIVE /HPF; URINE RBC 20-40 /HPF (<10); URINE WBC <10 /HPF (<10)
--- NOTE | 2019-05-14 13:38 | PROVIDER DOCUMENTATION ---
This chart was entered by Suad Almendarez Scribe, acting as scribe for Oumar Orozco MD. HPI-General Adult - General Stated Complaint: LETHARGIC Time Seen by Provider: 05/14/19 10:03 Source: EMS Allergies/Adverse Reactions: Patient Allergies Allergy/AdvReac Type Severity Reaction Status Date / Time No Known Allergies Allergy Verified 05/01/19 09:56 Home Medications: Home Medication List Medication Instructions Recorded Confirmed Last Taken Type Fentanyl 25 mcg TD DIRECTED 02/25/19 04/30/19 Unknown History Hydrocodone/Acetaminophen [[place] 1 ea PO Q4-6H PRN PRN 02/25/19 04/30/19 02/25/19 History 7.5-325 Tablet] Omeprazole 40 mg PO DAILY 02/25/19 04/30/19 02/25/19 History Ondansetron Odt [Zofran Odt] 4 mg PO Q8-12H PRN PRN 02/25/19 04/30/19 Unknown History CefDINIR [Omnicef] 300 mg PO DAILY #30 cap 05/09/19 Unknown Rx - History of Present Illness -Gen Adult Nature of Presenting Problems: Patient is a 64 y/o male presenting to the ED today via EMS c/o AMS. Patient was found on his couch today observed to be unkempt, lethargic, and AMS. Patient's caregiver reports they last saw him 2 days ago. Patient is currently being treated for cancer of unknown origin and patient had a recent inpatient ad mission. Patient opens eyes spontaneously and withdraws to pain but mumbles incoherently and is unable to provide information. Associated Symptoms: reports: other (altered mental status) Similar Symptoms Previously?: No Recently seen or treated by another doctor?: Yes (recent inpatient admission) Review of Systems - Adult - REVIEW OF SYSTEMS - ADULT ROS:: unobtainable per condition (patient is non-responsive, no family at bedside) Constitutional: reports: fever Past History - Adult - PAST MEDICAL HISTORY-ADULT Review of Records: reports: Old Records Reviewed, Nursing Assessment Review, Medications Reviewed, Social history reviewed & non-contributory. Major Childhood Illnesses: reports: denies history Cardiovascular: reports: denies history Respiratory: reports: denies history Gastrointestinal: reports: denies history Obstetrical/Gynecological: reports: denies history Genitourinary: reports: denies history Musculoskeletal: reports: cancer (multiple myeloma) Neurological: reports: denies history Psychiatric: reports: denies history Endocrine/Immune: reports: denies history Other Conditions: reports: other (HIATAL HERNIA) - PRIOR SURGERIES/PROCEDURES Surgical/Procedure History: reports: reviewed, not pertinent - IMMUNIZATION STATUS Childhood Immunizations: See Nurse Assessment Flu Vaccine: See Nurse Assessment - FAMILY HISTORY Family History: reviewed, not pertinent Physical Exam-General - PHYSICAL EXAM-ADULT Initial Vital Signs Reviewed: Yes - CONSTITUTIONAL General Appearance: no apparent distress, cachetic - EYES Eyes: PERRL/EOMI, pink conjunctivae - HEAD, EARS, NOSE, MOUTH & THROAT HENMT: normocephalic/atraumatic, other (dry mucous membranes, dried blood in mouth) - NECK Neck: full range of motion, normal inspection - RESPIRATORY Respiratory: lungs clear, normal breath sounds, no respiratory distress, no accessory muscle use - CARDIOVASCULAR Cardiovascular: regular rate, rhythm, no edema - CHEST (BREASTS) Chest/Breast: other (port in left upper chest) - GASTROINTESTINAL (ABDOMEN) Abdominal Exam: non tender, soft, no organomegaly - LYMPHATIC Lymphatic: no adenopathy - MUSCULOSKELETAL Back Exam: normal inspection Extremity: normal range of motion, normal gait, normal inspection - SKIN Integumentary: normal color, normal turgor, warm/dry, abrasion(s) (head and arms bilaterally) - NEUROLOGIC Neurologic: grossly normal, no motor/sensory deficits - PSYCHIATRIC Psych/Mental Status: other (eyes open spontaneously, withdraws to pain, mumbles incoherently) Progress - PLAN OF CARE/RESULTS Result Diagrams: 05/14/19 11:20 05/14/19 11:32 - REASSESSMENT Reassessment #1 Time Reassessed: 13:34 Status: unchanged (Given IVF bolus, vanc/zosyn for sepsis ordered.) - EKG 1 Time of EKG reading by physician:: 12:17 EKG Read and Signed by:: Oumar Orozco EKG Interpretation (*Must complete 3 of following elements*): Abnormal Rate: 95 Rhythm: Sinus rhythm [place]: left [place] Interval: shortened ST Wave: non-specific ST changes - XRAY 1 XRAY Study: Chest Impression: See EMR Report (EXAM: CHEST-1 VIEW 05/14/2019 HISTORY: lethargy TECHNIQUE: AP upright portable at 1026 COMMENT: Multiple old rib fractures are present on the left. The heart size and pulmonary vascularity are within normal limits. There is a Port-A-Cath on the right with its tip in the right atrium. Overall the appearance of the chest has not changed significantly since 01/16/2019. IMPRESSION: Stable chest. Electronically signed by Paxton Falk 05/14/2019 10:37 AM 05/14/19 1037 Interpreting Physician: Paxton aFlk MD Dictated Date/Time: 05/14/19 1036 cc: Oumar Orozco MD; Zee Cramer MD) - CT/MRI 1 CT Study: Cervical Spine, Head Impression: See EMR Report (CT HEAD/C-SPINE W/O CONTRAST - 05/14/2019 INDICATION: head injury/pain COMPARISON: 07/29/2018 FINDINGS: Head CT: The ventricles and sulci are normal in size and contour. No intracranial mass or hemorrhage. The skull is intact. The sinuses, mastoids, and middle ears are c lear. Cervical spine: There are numerous scattered small bony lucencies throughout the spine. No fracture or subluxation. No central canal stenosis. Soft tissues are clear. There appears to be a right chest port. IMPRESSION: 1. No acute injury to the head. 2. Numerous cystic bony lucencies throughout the spine. Compatible with multiple myeloma. This exam was performed using automated exposure control, adjustment of mA or kV according to patient size, and/or use of iterative reconstruction technique Electronically signed by Jose Quezada 05/14/2019 11:03 AM 05/14/19 1103 Interpreting Physician: Jose Quezada MD Dictated Date/Time: 05/14/19 1059 cc: Oumar Orozco MD; Zee Cramer MD) - CONSULTS/PCP/HOSPITALIST Notification #1 *Consult/PCP/Hospitalist*: Stone Time Discussed: 12:20 Consult Disposition: other (will follow) #2 Consult: Shoaib paged [phone] Time Discussed: 13:25 Consult Disposition: Will see in ED Departure - Departure Date of Disposition Decision: 05/14/19 Time of Disposition Decision: 13:35 DIAGNOSIS: Dehydration with hypernatremia, Multiple myeloma in relapse, Pancytopenia with fever Sepsis with acute organ dysfunction Qualifiers: Sepsis type: sepsis due to unspecified organism Severe sepsis acute organ dysfunction type: encephalopathy Severe sepsis shock status: without septic sh ock Qualified Code(s): A41.9 - Sepsis, unspecified organism; R65.20 - Severe sepsis without septic shock; G93.40 - Encephalopathy, unspecified Altered mental status, unspecified Qualifiers: Altered mental status type: somnolence Qualified Code(s): R40.0 - Somnolence Disposition: ADMITTED INPATIENT 09 Certified Medical Emergency: Emergent Condition: Critical Referrals and Follow-Ups: Zee Cramer MD [Primary Care Provider] - - Critical Care Note This patient required my direct & personal management of CC.: Yes Total Time (mins): 40 Critical Care Statement: This patient required my direct personal management to treat or rule out processes, the absence of which, could potentiallly result in sudden, clinically significant life or limb threatening deterioration. Attestation - Physician/ GLENNY Attestation Patient care was provided by Advanced Practice Provider:: No The physician spent face to face time with patient:: Yes Advanced Practice Provider documentation review:: Supervising physician onsite and consulted in the evaluation and care of this patient. The physician did have a face to face encounter with the patient. This chart was documented by the indicated scribe, (Suad Almendarez Scribe) and accurately reflects the services I performed and decisions made by me, Oumar Orozco MD, as attested by the provider's signature.
[2019-05-14] MEDS: ZOSYN 3.375 GM in NS 50 ML IV SCH (17:16)
[2019-05-14] MEDS: POTASSIUM CHLORIDE 20 MEQ/SWI 20 MEQ/100 ML IVPB IV SCH ×2 (19:03→22:42)
[2019-05-14] MEDS ORDERED: NEXIUM IV SCH (21:30)
[2019-05-14] MEDS ORDERED: SODIUM CHLORIDE 0.9% INJ SCH (21:30)
--- NOTE | 2019-05-14 21:59 | HISTORY AND PHYSICAL ---
CHIEF COMPLAINT: Altered mental status, lethargy, history of fall sustaining injury to the head. HISTORY OF PRESENT ILLNESS: He is a 64-year-old white gentleman recently discharged from the hospital. He has been suffering from nonsecretory multiple myeloma under the care of Dr. Stone, and the treatment was stopped due to left jaw osteomyelitis, on chronic antibiotic therapy, and he had diarrhea associated with possible passing of a kidney stone, dehydrated. Admitted to the hospital last time, requiring blood transfusion, IV fluids, then sent home. He is also taking chronic pain treatment with a fentanyl patch and [place] with Dr. Bundy. He did well last year, and now he has progression of the disease with worsening of pancytopenia. His platelet count had dropped, and the Lovenox was stopped from the last admission. In the meantime, he came back with the family members. I spoke to them in the ER. The patient was extremely unkempt lethargic, with dry mucous membranes. He was not in a position to take care of his needs at home. ER workup revealed platelets of 32,000 and slight dehydration. A Robert was placed. He is getting IV fluids 125 mL/hr, and his potassium is 3.1. Chest x-ray was done. It showed a stable chest with port on the right side. CT head and cervical spine was done. No acute injury. Numerous cystic lesions throughout the spine compatible with multiple myeloma. Family decided he has a living will, DO NOT RESUSCITATE 1. He is also running a fever of 103, possible UTI. He was started on IV Zosyn and admitted to the hospital. PAST MEDICAL HISTORY: Nonsecretory multiple myeloma, pancytopenia, left mandible osteomyelitis, history of kidney stones, COPD, hiatal hernia, deconditioning, chronic pain syndrome, hiatal hernia with acid reflux disease, left maxillary sinusitis, tobacco abuse, Briceno esophagitis. PAST SURGICAL HISTORY: Torsion of the testicle surgery, Port-A-Cath on the right side, EGD and colonoscopy 2015. ALLERGIES: Not known. MEDICATIONS: [place], Prilosec, Zofran, calcitonin nasal spray, fentanyl patch (discontinue), Prilosec 40 daily, Zofran. 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 Smoking for last 20 years. No alcohol. No drug abuse. FAMILY HISTORY: Father of pancreatic cancer. Mother of Alzheimer disease. HEALTH MAINTENANCE: Pneumococcal vaccine 13 was given. Tetanus 2005, colonoscopy in [address] Blake. REVIEW OF SYSTEMS: General: He is completely confused, and the family is at bedside. He is running a fever, unkempt. HEENT: He has a bruise on the front part of the head. Denies having any neck pain. Respiratory: No cough. GI: No diarrhea, abdominal pain. Cardiovascular: No swelling of legs. Neurologic: No focal symptoms or weakness. PHYSICAL EXAMINATION: VITAL SIGNS: Temperature is 103. Vitals are stable. He is 6 feet tall, 120 pounds. GENERAL: Unkempt. HEENT: Dry mucous membranes. Poor dentition. NECK: Supple. CHEST: Bilateral air entry. HEART: Sounds are regular. ABDOMEN: Belly is soft, nontender. EXTREMITIES: No peripheral edema. No obvious neurological deficits. INVESTIGATIONS: White cell count 3.0, hematocrit 32, platelets 32. P 14, INR 1.0. ABG: PH is 7.57, pCO2 is 23, PO2 is 131, 28%. SMA 7: Sodium 146, potassium 3.1, and proBNP was high. Urinalysis positive for infection. Chest x-ray was stable. CT head and CT- spine were reviewed. ASSESSMENT: 1. A 64-year-old white male admitted to the hospital for fever, altered mental status, and dehydration in the context of nonsecretory myeloma. PLAN: 1. Dehydration. Plan is IV fluids cut down to 80 mL an hour. 2. Fever and history of chronic osteomyelitis and sinusitis, possible urinary tract infection. Intravenous Zosyn. 3. Pancytopenia. Continue to watch the platelets. 4. Chronic pain. Discontinue fentanyl. Will use [place] as needed. 5. Living will/DO NOT RESUSCITATE. Topographical Field Assistant consult for rehab placement. 6. Briceno esophagitis. IV Protonix. 7. Will consult with Dr. Stone about his prognosis and follow up. cc: Lucio Cramer MD [facility] [facility]
[2019-05-14] MEDS: NORCO-7.5 PO PRN (22:41)
[2019-05-14] MEDS: PROTONIX IV SCH (22:43)
[2019-05-14] MEDS: SODIUM CHLORIDE 0.9% INJ SCH (22:44)
[2019-05-15] MEDS: ZOSYN 3.375 GM in NS 50 ML IV SCH ×5 (01:02→23:54)
[2019-05-15] MEDS: NORCO-7.5 PO PRN ×4 (03:12→17:33)
[2019-05-15 09:00] LABS: BASO# 0.02 X1000 (0.0-0.2); BASO% 1.1 % (0.0-0.8); HEMATOCRIT 26.1 % (42.0-52.0); HEMOGLOBIN 8.1 g/dL (14.0-18.0); LYMPH# 0.71 X1000 (1.2-3.4); LYMPH% 38.4 % (20.5-51.1); MCH 32.1 PG (27-31); MCV 103.6 FL (81-99); MONO# 0.11 X1000 (0.11-0.59); MONO% 5.9 % (1.7-9.3); MPV 12.2 FL (7.4-10.4); PLT 21 X1000 (130-400); RBC 2.52 XMIL (4.7-6.1); RDW 15.9 % (11.5-14.5); WBC 1.85 X1000 (4.8-10.8)
[2019-05-15 09:01] LABS: AGAP 13; BUN 16 mg/dL (8-22); CALCIUM 7.9 mg/dL (8.8-10.2); CHLORIDE 117 mmol/L (98-107); COSMO 299; CREATININE 0.8 mg/dL (0.7-1.2); ESTIMATED GFR > 60; GLUCOSE 92 mg/dL (70-104); POTASSIUM 3.6 mmol/L (3.5-5.1); SODIUM 150 mmol/L (136-145); TCO2 20 mmol/L (25-35)
[2019-05-15 09:55] LABS: BANDS 12 % (0-1); LYMPHS 32 % (21-51); MONO 4 % (1-9); SEGS 52 % (42-75)
[2019-05-15] MEDS ORDERED: NS 500 ML IV ONE (12:02)
--- NOTE | 2019-05-15 13:52 | HEMO/ONC CONSULTATION ---
DATE: 05/15/2019 REASON FOR CONSULTATION: This is a known patient of ours for nonsecretory multiple myeloma. HISTORY OF PRESENT ILLNESS: Mr. Agrawal is a 64-year-old male who was found by family yesterday on his couch, unkempt, lethargic with altered mental status. He had last been seen 2 days prior. The patient has also just recently been discharged from the hospital on 05/09/2019 after approximately a week stay. The patient appeared very dehydrated, he was not clean. His ER workup revealed a platelet count of 32,000, low potassium. He had a fever of 103 degrees with a possible UTI. The patient was admitted to the hospital for further management. In the clinic, we treat the patient for nonsecretory multiple myeloma. He has been under treatment with Kyprolis; however the patient has been noncompliant and not showing up for his treatments. His last treatment was 11/27/2018. We have made several appointments for him since then in which he has not showed up. He told me this morning when I arrived that he needed to get out here because he had an appointment with Dr. Stone. The patient remained confused. He was not sure where he was. He denies any specific complaints. PAST MEDICAL HISTORY: 1. Nonsecretory multiple myeloma. 2. Pancytopenia. 3. Left mandible osteonecrosis of the jaw. 4. History of kidney stones. 5. COPD. 6. Hiatal hernia. 7. Chronic pain syndrome. 8. GERD. 9. Tobacco abuse. 10. Briceno's esophagitis. PAST SURGICAL HISTORY: Torsion of the testicle surgery, Port-A-Cath to the right side, EGD and colonoscopy. ALLERGIES: No known drug allergies. MEDICATIONS: [place], Prilosec, Zofran, calcitonin nasal spray, fentanyl patch, Prilosec, Zofran. SOCIAL HISTORY: The patient smokes. Denies alcohol or drug abuse. REVIEW OF SYSTEMS: The patient denied any complaints; however, difficult to obtain due to altered mental status. VITAL SIGNS: Temperature 97.8 degrees, pulse rate 74, respiratory rate 23, blood pressure 93/51, O2 saturation 98% on room air, 9/10 pain. PHYSICAL EXAMINATION: General: The patient is comfortable and appears in no acute distress. He is unkempt. HEENT: Sclerae anicteric. Dry mucous membranes. Poor dentition. Respiratory: Lung sounds clear to auscultation. Normal respiratory effort. Cardiac: S1, S2. Regular heart rate and rhythm. Abdomen: Soft, nontender, nondistended. Extremities: No lower extremity edema noted. Neurological: Alert to self. Not aware of place or time. LABORATORY DATA: WBCs 1.85, hemoglobin 8.1, hematocrit 26.1, platelet count 21,000. ANC not reportable. Sodium 150, potassium 3.6, calcium 7.9, plasma lactate 1.3. Urinalysis positive for UTI. RADIOLOGY: 1. Head and cervical spine CT. No acute injury to the head. Numerous cystic bony lucencies throughout the spine compatible with multiple myeloma. 2. Chest x-ray. No acute pathology noted except. ASSESSMENT AND PLAN: 1. Dehydration. Continue repleting the patient with IV normal saline. Continue management per Dr. Cramer. 2. Fever with history of osteomyelitis, sinusitis, current urinary tract infection. The patient is on IV Zosyn. Continue management per Dr. Cramer. 3. Pancytopenia. This is expected with his myeloma. We are monitoring his platelets. He will need a platelet transfusion for a count less than 20,000 or if he is bleeding. 4. Multiple myeloma. The patient has been noncompliant with treatment. We are continuing to monitor. 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 5. Nutrition and deconditioning. The patient's prognosis is poor. Currently he lives alone and is unable to care for himself. Family is aware that he may not be able to continue to live by himself. 6. Influenza B. The patient was positive for flu B. Continue medical management. 7. Neutropenia. The patient is neutropenic today. We will evaluate giving him a dose of Neupogen. Dictated by ZACK Duong for Zak Stone MD Patient seen and examined. Discussed with Dr. Cramer. Transfuse platelets as needed. Patient's condition is worsening. Once his infection improves, he wants to pursue chemotherapy. Prognosis is guarded. Zak Stone MD cc: MD Lucio Guerrier MD [facility]
[2019-05-15] MEDS: NS 1,000 ML IV SCH (15:17)
--- NOTE | 2019-05-15 21:30 | PROGRESS NOTE ---
DATE: 05/15/2019 SUBJECTIVE: The patient is a little better and we repeated the flu, which came back positive influenza B. He had a fever of 103 and now it is 99.7. OBJECTIVE: Vital signs: Vitals are stable. HEENT exam: Dry mucous membranes. Neck: Is supple. Chest: Is clear. Heart: Sounds are regular. Abdomen: Belly is soft, nontender. INVESTIGATIONS: CBC: White cell count 1.8, hematocrit 26, platelets 21,000. SMA 7: Sodium 150, potassium 3.6, calcium 7.9. Urine dipstick was positive. Flu influenza B is positive. ASSESSMENT AND PLAN: 1. Influenza B started on Tamiflu 75 p.o. b.i.d. 2. Dehydration IV fluids. 3. Pancytopenia due to nonsecretory myeloma. 4. Urinary tract infection. Intravenous Zosyn. 5. Port on the right side. 6. Living will, Do Not Resuscitate. I appreciated Dr. Stone's consult and slowly advance the diet. LEVEL OF DOCUMENTATION: 25 minutes. cc: Lucio Cramer MD
[2019-05-15] MEDS: TAMIFLU PO SCH (23:54)
[2019-05-15] MEDS: PROTONIX IV SCH (23:54)
[2019-05-15] MEDS: SODIUM CHLORIDE 0.9% INJ SCH (23:54)
[2019-05-16] MEDS: ZOSYN 3.375 GM in NS 50 ML IV SCH ×4 (05:05→20:37)
[2019-05-16] MEDS: NS 1,000 ML IV SCH (06:56)
[2019-05-16 07:46] LABS: BASO# 0.02 X1000 (0.0-0.2); BASO% 0.8 % (0.0-0.8); EOS# 0.02 X1000 (0.0-0.7); EOS% 0.8 % (0.0-10.0); HEMATOCRIT 25.3 % (42.0-52.0); HEMOGLOBIN 7.7 g/dL (14.0-18.0); IMM GRAN# 0.12 X1000 (0.0-0.04); IMM GRAN% 4.7 % (0.0-0.5); LYMPH# 1.03 X1000 (1.2-3.4); LYMPH% 40.6 % (20.5-51.1); MCH 31.7 PG (27-31); MCHC 30.4 g/dL (33-37); MCV 104.1 FL (81-99); MONO% 7.9 % (1.7-9.3); MPV 11.4 FL (7.4-10.4); NEUT# 1.15 X1000 (1.4-6.5); NEUT% 45.2 % (42.2-75.2); PLT 48 X1000 (130-400); RBC 2.43 XMIL (4.7-6.1); RDW 16.1 % (11.5-14.5); WBC 2.54 X1000 (4.8-10.8)
[2019-05-16 08:00] LABS: AGAP 14; BUN 11 mg/dL (8-22); CALCIUM 8.1 mg/dL (8.8-10.2); CHLORIDE 117 mmol/L (98-107); COSMO 299; CREATININE 0.9 mg/dL (0.7-1.2); ESTIMATED GFR > 60; GLUCOSE 93 mg/dL (70-104); SODIUM 151 mmol/L (136-145); TCO2 20 mmol/L (25-35)
[2019-05-16] MEDS: D5 1/2 NS + KCL 40 MEQ 1,000 ML IV SCH ×2 (10:37→20:37)
[2019-05-16] MEDS: TAMIFLU PO SCH ×2 (10:39→20:33)
[2019-05-16] MEDS ORDERED: GRANIX SUBQ ONE (10:41)
--- NOTE | 2019-05-16 11:49 | HEMO/ONC PROGRESS NOTE ---
DATE: 05/16/2019 SUBJECTIVE: Mr. Agrawal appears comfortable. States he is comfortable in his bed this morning. He has no complaints. He has no pain. He is aware of who he is and where he is at, but not much more. He states he feels okay. He has no specific complaint. OBJECTIVE: Vital Signs: Temperature 97.3 degrees, pulse rate 82, respiratory rate 17, blood pressure 108/47, O2 saturation 98% on room air. He is in 0/10 pain. General: The patient continues to appear unkempt, slightly confused. HEENT: Dry mucous membranes. Sclerae anicteric. Cardiovascular: Regular rate and rhythm. Respiratory: Lung sounds are clear to auscultation. Abdomen: Soft, nontender, nondistended. Skin: Extremely dry and flaking. Neurological: Alert and oriented x2. No focal motor deficits noted. LABORATORY DATA: WBCs 2.54, hemoglobin 7.7, hematocrit 25.3, platelet count 48,000. ANC 1.15. Sodium 151, potassium 3.0, creatinine 0.9, calcium 8.1. ASSESSMENT AND PLAN: 1. Dehydration with hypernatremia. Dr. Cramer has changed his IV fluids to D5 half-normal saline with potassium. Hopefully, this should continue to rehydrate the patient while lowering his sodium. Continue current management per Dr. Cramer. 2. Influenza B. The patient was positive. He has been placed on Tamiflu and contact precautions. Continue to treat the patient for medical management. 3. Pancytopenia from multiple myeloma and flu. The patient is neutropenic today. We have ordered 1 dose of Neupogen. The patient also has thrombocytopenia, which is improving. Transfuse 1 unit of platelets for a platelet count of less than 20,000 or if he is bleeding. We will continue to monitor. 4. Multiple myeloma. The patient has been noncompliant with follow uo outpatient. Plan to start treatment once infection better. 5. Nutrition and deconditioning. The patient's progress remains poor. He is not eating or drinking well while at home. Add protein shakes while he is in the hospital. Continue to offer him meals and encourage him to eat while he is here. Dictated by ZCAK Duong for Zak Stone MD cc: MD Lucio Guerrier MD [facility]
[2019-05-16] MEDS: NORCO-7.5 PO PRN ×2 (12:19→20:33)
[2019-05-16] MEDS: PROTONIX IV SCH (20:35)
[2019-05-16] MEDS: SODIUM CHLORIDE 0.9% INJ SCH (20:36)
--- NOTE | 2019-05-16 20:58 | PROGRESS NOTE ---
DATE: 05/16/2019 SUBJECTIVE: The patient is an unkempt, dishevelled, not eating well. Low-grade fever. Extremely dry and dehydrated. REVIEW OF SYSTEMS: Otherwise none reported. OBJECTIVE: Now temp is 97.8 degrees, pulse 64. Vitals are stable, 100% on room air. He is very dry. Bad dentition.Neck: Supple. Chest: Bilateral air entry. Heart: Sounds are regular. Abdomen: Belly is soft, nontender. INVESTIGATIONS: White cell count 2.5, hematocrit 25, platelets 48,000, sodium 151, potassium 3, chloride 17, BUN 11, creatinine 0.9. Influenza B infection positive, blood cultures were negative. ASSESSMENT: 1. Altered mental status due to delirium from the fever due to influenza B infection. 2. Dehydration, hyponatremic. 3. Hypokalemia. 4. Nonsecretory myeloma, on hold for chemotherapy. 5. Left mandible osteomyelitis. 6. Urinary tract infection. PLAN OF CARE: 1. Continue intravenous Zosyn. 2. Tamiflu. 3. Xanax was given. 4. Hematological support if the hematocrit less than 24 for blood transfusion. 5. Change the IV fluids D5 half-normal saline with potassium for replacement therapy. Not a candidate for Lovenox due to thrombocytopenia, GI prophylaxis with IV Protonix and living will DNR. Continue laboratory workup over the weekend. LEVEL OF DOCUMENTATION: 25 minutes. cc: Lucio Cramer MD
[2019-05-17] MEDS: NORCO-7.5 PO PRN ×4 (04:35→21:08)
[2019-05-17] MEDS: SODIUM CHLORIDE 0.9% INJ SCH ×2 (04:41→21:08)
[2019-05-17] MEDS: ZOSYN 3.375 GM in NS 50 ML IV SCH ×5 (04:41→21:09)
[2019-05-17] MEDS: D5 1/2 NS + KCL 40 MEQ 1,000 ML IV SCH ×3 (04:41→16:00)
[2019-05-17 07:34] LABS: BASO# 0.01 X1000 (0.0-0.2); BASO% 0.3 % (0.0-0.8); EOS# 0.01 X1000 (0.0-0.7); EOS% 0.3 % (0.0-10.0); HEMATOCRIT 24.1 % (42.0-52.0); HEMOGLOBIN 7.4 g/dL (14.0-18.0); IMM GRAN# 0.06 X1000 (0.0-0.04); IMM GRAN% 1.8 % (0.0-0.5); LYMPH# 1.02 X1000 (1.2-3.4); LYMPH% 30.1 % (20.5-51.1); MCH 31.6 PG (27-31); MCHC 30.7 g/dL (33-37); MONO% 2.9 % (1.7-9.3); NEUT# 2.19 X1000 (1.4-6.5); NEUT% 64.6 % (42.2-75.2); RBC 2.34 XMIL (4.7-6.1); RDW 16.1 % (11.5-14.5); WBC 3.39 X1000 (4.8-10.8)
[2019-05-17 07:35] LABS: PLT 38 X1000 (130-400)
[2019-05-17 07:59] LABS: AGAP 11; BUN 10 mg/dL (8-22); CALCIUM 8.3 mg/dL (8.8-10.2); CHLORIDE 117 mmol/L (98-107); COSMO 297; CREATININE 0.8 mg/dL (0.7-1.2); ESTIMATED GFR > 60; GLUCOSE 132 mg/dL (70-104); POTASSIUM 3.2 mmol/L (3.5-5.1); SODIUM 149 mmol/L (136-145); TCO2 21 mmol/L (25-35)
[2019-05-17] MEDS: TAMIFLU PO SCH ×2 (09:32→21:08)
[2019-05-17] MEDS ORDERED: BLISTEX MEDICATED BERRY LIP BALM TOP PRN (10:15)
--- NOTE | 2019-05-17 14:37 | PROGRESS NOTE ---
DATE: 05/17/2019 SUBJECTIVE: The patient denies having any acute complaints but feels weak. OBJECTIVE: Vital Signs: Temperature 97.5 degrees, pulse 70 per minute, respiratory rate 20 per minute, blood pressure 107/55, pulse oximetry 100% on room air. General: Patient is alert and oriented x3. He does not appear to be in any acute distress, but feels somewhat weak. Cardiovascular System: First and second heart sounds are audible without any murmurs or gallops. Respiratory System: Bilateral lung air entry is moderately decreased but there are no rales or rhonchi present on auscultation. Gastrointestinal: Abdomen is soft and nondistended. Normal bowel sounds are present. DIAGNOSTIC DATA: CBC shows WBC count of 3.39, hemoglobin 7.4, hematocrit 24.1, and platelet count of 38,000. In comparison, his CBC done from yesterday showed WBC count of 2.54, hemoglobin 7.7, hematocrit 25.3, and platelet count of 48,000. Chemistry showed sodium level of 149, potassium 3.2, chloride 117, CO2 21, and glucose level of 132. IMPRESSION: 1. Multiple myeloma with pancytopenia. 2. Influenza B infection for which the patient has been getting Tamiflu. 3. Hypokalemia. 4. Generalized deconditioning. PLAN: The patient will continue with Tamiflu along with supportive care. He has been getting IV fluids with potassium which will be continued. The patient has been diagnosed with multiple myeloma for which he will continue care as per Dr. Stone, who is already consulted and following the case. The patient does have generalized deconditioning and weakness for which I am going to order physical therapy. cc: MD Lucio Rascon MD
[2019-05-17] MEDS: PROTONIX IV SCH (21:08)
[2019-05-18] MEDS: NORCO-7.5 PO PRN ×4 (01:08→21:26)
[2019-05-18] MEDS: D5 1/2 NS + KCL 40 MEQ 1,000 ML IV SCH ×4 (01:42→21:24)
[2019-05-18] MEDS: ZOSYN 3.375 GM in NS 50 ML IV SCH ×4 (04:56→21:25)
[2019-05-18 08:02] LABS: BASO# 0.03 X1000 (0.0-0.2); BASO% 0.7 % (0.0-0.8); EOS# 0.02 X1000 (0.0-0.7); EOS% 0.5 % (0.0-10.0); HEMOGLOBIN 8.4 g/dL (14.0-18.0); IMM GRAN# 0.27 X1000 (0.0-0.04); IMM GRAN% 6.2 % (0.0-0.5); LYMPH# 1.19 X1000 (1.2-3.4); LYMPH% 27.4 % (20.5-51.1); MCH 32.3 PG (27-31); MCHC 31.1 g/dL (33-37); MCV 103.8 FL (81-99); MONO# 0.31 X1000 (0.11-0.59); MONO% 7.1 % (1.7-9.3); MPV 11.3 FL (7.4-10.4); NEUT# 2.53 X1000 (1.4-6.5); NEUT% 58.1 % (42.2-75.2); PLT 36 X1000 (130-400); WBC 4.35 X1000 (4.8-10.8)
[2019-05-18 08:32] LABS: AGAP 13; BUN 11 mg/dL (8-22); CALCIUM 8.4 mg/dL (8.8-10.2); CHLORIDE 114 mmol/L (98-107); COSMO 289; CREATININE 0.7 mg/dL (0.7-1.2); ESTIMATED GFR > 60; GLUCOSE 110 mg/dL (70-104); MAGNESIUM 1.9 mg/dL (1.5-2.7); POTASSIUM 3.9 mmol/L (3.5-5.1); SODIUM 145 mmol/L (136-145); TCO2 18 mmol/L (25-35)
[2019-05-18] MEDS: TAMIFLU PO SCH ×2 (09:09→21:25)
[2019-05-18 10:39] LABS: BANDS 1 % (0-1); BASO 1 % (0-1); EOS 1 % (1-10); LYMPHS 27 % (21-51); MONO 7 % (1-9); SEGS 58 % (42-75)
[2019-05-18 10:40] LABS: ANISOCYTOSIS 1+; BURR CELLS OCCASIONAL; POIKILOCYTOSIS OCCASIONAL
--- NOTE | 2019-05-18 12:03 | PROGRESS NOTE ---
DATE: 05/18/2019 SUBJECTIVE: Patient denies having any acute complaints this morning. OBJECTIVE: Vital Signs: Temperature 97.4 degrees, pulse 77 per minute, respiratory rate 20 per minute, blood pressure 119/61, pulse oximetry 99% on room air. General: Patient is alert and oriented x3. He does appear to be somewhat weak. Cardiovascular System: First and second heart sounds are audible without any murmurs or gallops. Respiratory System: No respiratory distress noted. Bilateral lung air entry is slightly decreased but there are no rales or rhonchi present on auscultation. Gastrointestinal System: Abdomen is soft and nondistended. Normal bowel sounds are present. Diagnostic Data: CBC shows a WBC count of 4.35, hemoglobin 8.4, hematocrit 27.0, and platelet count of 36,000. In comparison, his CBC from yesterday showed a WBC count of 3.39, hemoglobin 7.4, hematocrit 24.1, and platelet count of 38,000. Chemistry this morning showed chloride of 114 and improved potassium level from 3.2 yesterday to 3.9 today. IMPRESSION: 1. Multiple myeloma with pancytopenia. 2. Influenza B infection. 3. Hypokalemia. That has resolved. 4. Generalized deconditioning. PLAN: The patient will continue with current care including Tamiflu and supportive care. He will continue care of multiple myeloma as per Dr. Stone. We will continue with the physical therapy for generalized deconditioning. cc: MD Lucio Rascon MD
[2019-05-18] MEDS ORDERED: ZOSYN ONE (13:46)
[2019-05-18] MEDS: PROTONIX IV SCH (21:25)
[2019-05-18] MEDS: SODIUM CHLORIDE 0.9% INJ SCH (21:25)
[2019-05-19] MEDS: D5 1/2 NS + KCL 40 MEQ 1,000 ML IV SCH ×3 (02:30→16:13)
[2019-05-19] MEDS: ZOSYN 3.375 GM in NS 50 ML IV SCH ×4 (03:41→22:00)
[2019-05-19] MEDS: NORCO-7.5 PO PRN ×4 (03:44→21:04)
[2019-05-19 07:29] LABS: BASO# 0.01 X1000 (0.0-0.2); BASO% 0.3 % (0.0-0.8); EOS# 0.02 X1000 (0.0-0.7); EOS% 0.5 % (0.0-10.0); HEMATOCRIT 25.7 % (42.0-52.0); HEMOGLOBIN 7.9 g/dL (14.0-18.0); IMM GRAN# 0.19 X1000 (0.0-0.04); IMM GRAN% 5.1 % (0.0-0.5); LYMPH# 1.16 X1000 (1.2-3.4); LYMPH% 31.1 % (20.5-51.1); MCH 31.3 PG (27-31); MCHC 30.7 g/dL (33-37); MONO# 0.37 X1000 (0.11-0.59); MONO% 9.9 % (1.7-9.3); MPV 11.2 FL (7.4-10.4); NEUT# 1.98 X1000 (1.4-6.5); NEUT% 53.1 % (42.2-75.2); RBC 2.52 XMIL (4.7-6.1); RDW 15.4 % (11.5-14.5); WBC 3.73 X1000 (4.8-10.8)
[2019-05-19 07:30] LABS: PLT 36 X1000 (130-400)
[2019-05-19 07:50] LABS: AGAP 15; BUN 10 mg/dL (8-22); CALCIUM 8.7 mg/dL (8.8-10.2); CHLORIDE 111 mmol/L (98-107); COSMO 291; CREATININE 0.8 mg/dL (0.7-1.2); ESTIMATED GFR > 60; GLUCOSE 98 mg/dL (70-104); POTASSIUM 4.3 mmol/L (3.5-5.1); SODIUM 147 mmol/L (136-145); TCO2 21 mmol/L (25-35)
[2019-05-19] MEDS ORDERED: NS 500 ML IV ONE (08:29)
[2019-05-19] MEDS: HALDOL IV PRN ×2 (09:50→23:59)
--- NOTE | 2019-05-19 09:50 | HEMO/ONC PROGRESS NOTE ---
DATE: 05/19/2019 SUBJECTIVE: Mr. Agrawal is comfortable this morning. Staff is performing patient care and cleaning the patient up. The patient is not much help with his own ADLs. He remains slightly confused and weak, but he denies any acute complaints. There were no significant events that occurred over the weekend. OBJECTIVE: Vital Signs: Temperature 97.5 degrees, pulse rate 80, respiratory rate 18, blood pressure 119/73, and O2 saturation 98% on nasal cannula at 2 liters. He is in 0/10 pain. General: On physical exam, the patient appears in no acute distress. He is pleasant with a slight confusion. HEENT: Sclerae anicteric. PERRLA. Oral mucosa is normal. Poor dentition. Cardiovascular: Normal S1 and S2. Heart rate and rhythm regular. Respiratory: Lung sounds are clear to auscultation. Normal respiratory effort. Abdomen: Soft, nondistended, nontender. Bowel sounds are present. Skin: Dry and flaking. Neurological: Alert and oriented x2. No focal motor deficits. LABORATORY DATA: WBCs 3.73, hemoglobin 7.9, hematocrit 25.7, platelet count 36,000. ANC 1.98. Sodium 147, calcium 8.7. ASSESSMENT AND PLAN: 1. Multiple myeloma with pancytopenia. The patient's treatment has been on hold for quite some time. In the clinic, he one cycle of Kyprolis. The patient has been noncompliant with his office visits. 2. Influenza B. The patient remains on Tamiflu and other supportive care. Continue with medical management. 3. Dehydration with hypernatremia. The patient has continued to be repleted with D-5 half-normal with potassium. His sodium is slowing trending down. 4. Thrombocytopenia. The patient's disease process is causing his thrombocytopenia. We can transfuse the patient for platelet count of less than 20 or if he is bleeding. We will continue to monitor. 5. Anemia. His anemia is from his multiple myeloma. He will need a blood transfusion for hemoglobin less than 7 or if he is symptomatic. 6. Deconditioning and nutrition. The patient continues to be extremely weak. He does not eat or drink well when he does go home. Continue him on nutritional shakes while he is in the hospital. Continue to work with physical therapy. 7. We will continue to follow him peripherally. Dictated by ZACK Duong for Zak Stone MD Plan to start treatment when patient better from infection. Zak Stone MD cc: MD Lucio Guerrier MD [facility]
[2019-05-19] MEDS: TAMIFLU PO SCH ×2 (09:51→21:03)
[2019-05-19] MEDS: PROTONIX IV SCH (21:04)
[2019-05-19] MEDS: SODIUM CHLORIDE 0.9% INJ SCH (21:04)
--- NOTE | 2019-05-19 22:00 | PROGRESS NOTE ---
DATE: 05/19/2019 SUBJECT: Is slowly recovering from flu B infection. He had a pancytopenia requiring 1 unit of packed RBCs. Dehydration is much improving. He is confused, agitated. He was given some Haldol this morning. PHYSICAL EXAMINATION: Vital signs: Temperature is 97 degrees. Vitals are stable. HEENT: Unkempt, dry mucous membranes. Chest: Clear. Heart: Sounds are regular. Abdomen: Belly is soft, nontender. Neurologic: No obvious deficits. LABS: White cell count 3.7, hematocrit 25.7, platelets 36,000. Sodium 147, potassium 4.3. ASSESSMENT AND PLAN: 1. Pancytopenia. Hematological support with hematocrit more than 27. 2. Dehydration. IV fluids. 3. Confusion, delirium, on Haldol. 4. Chronic pain on [place]. 5. Influenza B infection on Tamiflu. 6. Urinary tract infection on IV Zosyn and he was also given Granix for low white cell count by Dr. Stone. 7. Thrombocytopenia. Stable. We will continue to monitor for next 3 days. LEVEL OF DOCUMENTATION: 25 minutes. cc: Lucio Cramer MD
[2019-05-20] MEDS: ZOSYN 3.375 GM in NS 50 ML IV SCH ×4 (04:01→23:43)
[2019-05-20] MEDS: D5 1/2 NS + KCL 40 MEQ 1,000 ML IV SCH ×2 (04:01→18:04)
[2019-05-20 07:48] LABS: HEMATOCRIT 27.9 % (42.0-52.0); HEMOGLOBIN 9.2 g/dL (14.0-18.0); MCH 32.9 PG (27-31); MCV 99.6 FL (81-99); MPV 11.4 FL (7.4-10.4); RBC 2.8 XMIL (4.7-6.1); RDW 16.3 % (11.5-14.5); WBC 3.77 X1000 (4.8-10.8)
[2019-05-20 08:26] LABS: AGAP 17; BUN 10 mg/dL (8-22); CALCIUM 9.5 mg/dL (8.8-10.2); CHLORIDE 105 mmol/L (98-107); COSMO 282; CREATININE 0.8 mg/dL (0.7-1.2); ESTIMATED GFR > 60; GLUCOSE 97 mg/dL (70-104); POTASSIUM 3.6 mmol/L (3.5-5.1); SODIUM 142 mmol/L (136-145); TCO2 20 mmol/L (25-35)
[2019-05-20] MEDS: NORCO-7.5 PO PRN ×2 (09:59→14:03)
[2019-05-20] MEDS: TAMIFLU PO SCH ×2 (09:59→23:43)
[2019-05-20] MEDS: HALDOL IV PRN (17:45)
--- NOTE | 2019-05-20 22:26 | PROGRESS NOTE ---
DATE: 05/20/2019 SUBJECTIVE: The patient is little better. Agitation is improved. Encouraged to the eat and I am going to stop the Tamiflu tomorrow. His fever is 97.8. Vitals are stable. Unkempt appearance, dry. Chest is clear. Heart sounds are regular. Belly soft, nontender. No obvious deficits. INVESTIGATIONS: White cell count 3.7, hematocrit 27.9, platelet count 30,000. SMA 7 was getting normal. ASSESSMENT AND PLAN: 1. Dehydration improving. Encouraged the GI soft diet. 2. Pancytopenia due to multiple myeloma. Supportive care. 3. Influenza B infection. Will stop Tamiflu in the morning. 4. Hyponatremia, dehydration, hypokalemia improving. 5. Urinary tract infection on intravenous Zosyn and physical therapy and will follow up and then living will do not resuscitate. He will arrange to go for rehab. LEVEL OF DOCUMENTATION: 25 minutes. cc: Lucio Cramer MD
[2019-05-20] MEDS: PROTONIX IV SCH (23:43)
[2019-05-20] MEDS: SODIUM CHLORIDE 0.9% INJ SCH (23:43)
[2019-05-21] MEDS: D5 1/2 NS + KCL 40 MEQ 1,000 ML IV SCH ×2 (02:37→14:47)
[2019-05-21] MEDS: ZOSYN 3.375 GM in NS 50 ML IV SCH ×4 (05:42→20:03)
[2019-05-21 08:22] LABS: HEMATOCRIT 27.5 % (42.0-52.0); HEMOGLOBIN 8.8 g/dL (14.0-18.0); MCH 32.1 PG (27-31); MCV 100.4 FL (81-99); MPV 11.6 FL (7.4-10.4); RBC 2.74 XMIL (4.7-6.1); RDW 15.7 % (11.5-14.5); WBC 3.06 X1000 (4.8-10.8)
[2019-05-21 08:50] LABS: AGAP 12; BUN 9 mg/dL (8-22); CALCIUM 9.1 mg/dL (8.8-10.2); CHLORIDE 108 mmol/L (98-107); COSMO 288; ESTIMATED GFR > 60; GLUCOSE 105 mg/dL (70-104); POTASSIUM 4.2 mmol/L (3.5-5.1); SODIUM 145 mmol/L (136-145); TCO2 25 mmol/L (25-35)
[2019-05-21] MEDS: NORCO-7.5 PO PRN (09:42)
[2019-05-21] MEDS: PROTONIX IV SCH (20:05)
[2019-05-21] MEDS: SODIUM CHLORIDE 0.9% INJ SCH (20:12)
--- NOTE | 2019-05-21 20:27 | PROGRESS NOTE ---
DATE: 05/21/2019 SUBJECTIVE: The patient is a little better and he still has a Robert, and encouraged the patient to eat. REVIEW OF SYSTEMS: None reported. OBJECTIVE: Vital signs: Temperature is 97.1 degrees, pulse is 80, blood pressure is stable. HEENT: Within normal limits. Neck: Supple. Port on the right side. Chest: Clear. Heart: Sounds are regular. Abdomen: Belly is soft, nontender. INVESTIGATIONS: CBC: White cell count 3, hematocrit 27, platelets 34,000. Sodium 145, potassium 4.2, chloride 108, BUN 9, creatinine 1.0. Blood cultures were negative. ASSESSMENT: 1. Pancytopenia. 2. Nonsecretory myeloma. 3. Influenza B infection. 4. Dehydration. 5. Urinary tract infection. PLAN OF CARE: 1. Discontinue Robert. 2. Encourage the patient to eat. 3. Will stop the fluids tomorrow. 4. Hematological support as needed. 5. Intravenous Zosyn. 6. Out of the bed with physical therapy. 7. Discontinue Tamiflu after 5 days. 8. Will continue to monitor. Hopefully discharge on Sunday. LEVEL OF DOCUMENTATION: 25 minutes. cc: Lucio Cramer MD
[2019-05-22] MEDS: ZOSYN 3.375 GM in NS 50 ML IV SCH ×4 (06:48→23:16)
[2019-05-22 07:59] LABS: HEMATOCRIT 28.3 % (42.0-52.0); HEMOGLOBIN 9.4 g/dL (14.0-18.0); MCH 33.1 PG (27-31); MCHC 33.2 g/dL (33-37); MCV 99.6 FL (81-99); MPV 11.8 FL (7.4-10.4); RBC 2.84 XMIL (4.7-6.1); RDW 15.3 % (11.5-14.5); WBC 3.2 X1000 (4.8-10.8)
[2019-05-22 08:37] LABS: AGAP 13; BUN 10 mg/dL (8-22); CALCIUM 10.2 mg/dL (8.8-10.2); CHLORIDE 104 mmol/L (98-107); COSMO 281; CREATININE 0.9 mg/dL (0.7-1.2); ESTIMATED GFR > 60; GLUCOSE 105 mg/dL (70-104); POTASSIUM 3.9 mmol/L (3.5-5.1); SODIUM 141 mmol/L (136-145); TCO2 24 mmol/L (25-35)
--- NOTE | 2019-05-22 19:48 | PROGRESS NOTE ---
DATE: 05/22/2019 SUBJECTIVE: The patient is getting better and he is ready to go for rehab tomorrow. He is slowly dwindling, confused. OBJECTIVE: Temperature is 98 degrees. Vitals are stable.Chest: Clear. Heart sounds are regular. Belly is soft and nontender. No obvious deficits. INVESTIGATIONS: CBC: White cell count 3.2, hematocrit 28, platelets 43,000. SMA 7 is normal. ASSESSMENT AND PLAN: 1. Dehydration. Better. Discontinue fluids. Encourage p.o. intake. 2. Influenza B infection. Off Tamiflu. 3. Urinary tract infection. On IV Zosyn. 4. Decreased performance status. Living will, DNR, and will discharge to rehab with palliative services with comfort care and will follow up. LEVEL OF DOCUMENTATION: 25 minutes. cc: Lucio Cramer MD
[2019-05-22] MEDS: SODIUM CHLORIDE 0.9% INJ SCH (23:15)
[2019-05-22] MEDS: PROTONIX IV SCH (23:15)
[2019-05-23] MEDS: HALDOL IV PRN (00:30)
[2019-05-23] MEDS: ZOSYN 3.375 GM in NS 50 ML IV SCH (04:29)
[2019-05-23 07:51] VITALS: BP 91/49
--- NOTE | 2019-05-23 12:54 | HEMO/ONC PROGRESS NOTE ---
DATE: 05/23/2019 SUBJECTIVE: Mr. Agrawal is curled up in his bed. He awakes easily to my voice. The patient cannot place who I am. He is not sure where he is at currently. The patient is continuing to be rather confused. He denies any pain and denies any significant events occurring. OBJECTIVE: Vital Signs: Temperature 97.9 degrees, pulse rate 68, respiratory rate 19, blood pressure 91/49, O2 saturation 92% on room air. Patient is in 0/10 pain. PHYSICAL EXAMINATION: General: The patient is in no acute distress. He is pleasantly confused. HEENT: Sclerae anicteric. PERRLA. Oral mucosa is normal. Extremely poor dentition. Cardiovascular: Normal S1, S2. Heart rate and rhythm normal. Blood pressure low. Respiratory: Lung sounds are clear to auscultation. Normal respiratory effort. Abdomen: Soft, nondistended, nontender. Skin: Dry and flaking. Neurological: Awake, alert and oriented x1. LABORATORY: No labs drawn today. ASSESSMENT AND PLAN: 1. Multiple myeloma with pancytopenia. The patient's treatments have been on hold for quite some time. At this time, he is a do not resuscitate. He is going to rehabilitation with Palliative Services with comfort care. He has had an extreme decreased performance status, and truly not a candidate for further therapy. The patient has been slowly declining. 2. Influenza B. The patient has completed his Tamiflu treatments. 3. Dehydration and hypernatremia, resolved. 4. Thrombocytopenia, aware. This is ongoing and stable. 5. Anemia, aware. This is also ongoing and stable. DISPOSITION: The patient is leaving the hospital today to a rehab with palliative care. Dictated by ZACK Duong for Zak Stone MD cc: MD Lucio Guerrier MD [facility]
--- NOTE | 2019-05-23 14:12 | DISCHARGE SUMMARY ---
ADMISSION DATE: 05/14/2019 DISCHARGE DATE: 05/23/2019 DISCHARGING DIAGNOSES: 1. Altered mental status due to metabolic encephalopathy, fever due to influenza B infection. 2. Pancytopenia due to nonsecretory multiple myeloma. 3. Left mandible osteomyelitis. 4. Chronic obstructive pulmonary disease, hiatal hernia, chronic pain syndrome, tobacco abuse, Briceno's esophagitis, deconditioning. 5. Kidney stones on the left side. CONSULTS: Dr. Stone. PROCEDURES: Transfusion of 2 units of packed RBC, 1 unit of platelet transfusion. Port on the right side of the chest. BRIEF HISTORY: Please see the H and P that was done on 05/14/2019. In brief, he is a 64-year-old white gentleman who has been suffering from nonsecretory myeloma associated with multiple bony lesions. Unable to do chemotherapy due to left mandible osteomyelitis. The patient has been on chronic antibiotics. The patient was readmitted to the hospital after he was discharged from the previous hospitalization with decreasing activities of daily living, confusion and recurrent falls. Sustained injury to the head associated with a fever 103. At the time of admission, CT head, CT C-spine no acute bony injury. No bleeding. The patient was given 1 unit of platelet transfusion for platelet count less than 30,000. Fever workup, possible UTI. He was given IV Zosyn. Chest x-ray was clear. Influenza B was positive for which the patient was given Tamiflu 75 mg p.o. b.i.d. for [address] Stone was consulted for the myeloma and pancytopenia. He is not going to do anything unless he improves his functional status. He was also dehydrated for which the patient was given IV fluids, potassium was replaced. He continues to decline in his performance status. Family made him Living Will DNR. They want to put him in the rehab facility. Also palliative care consult was obtained. We will initiate hospice care with comfort care. LABORATORY DATA AT TIME OF DISCHARGE: CBC: White cell count 3.2, hematocrit 28, platelets 43,000. Sodium 141, potassium 3.9, chloride 104, BUN 10, creatinine 0.9. Blood cultures were negative. Chest x-ray was stable. DISCHARGE INSTRUCTIONS: 1. Brandon 7.5 q.4-6 as needed. 2. Zofran as needed for nausea. 3. Prilosec 40 mg daily. 4. MiraLAX 17 g daily. 5. Calcitonin nasal spray 1 spray on a daily basis. 6. Cefdinir 10 mg daily. CONDITION AT DISCHARGE: The patient's condition deemed to be terminal. Continue palliative services. cc: Lucio Cramer MD
== END 2019-05-23 15:59 | DRG 865 ==
LOC: SUPCPDRO → ED 09:59 → EDIPHOLD 13:47 → 3N 18:58
PROVIDERS: ADMIT Internal Medicine; ATTEND Internal Medicine